=== PATIENT | female | born 1955 | race Caucasian/White ===

== ENCOUNTER 2020-06-07 18:55 | Emergency (ER) | payer OTHER ==
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
--- OUTSIDE RECORDS SUMMARY | 2020-06-07 18:57 | XMS REPORT | Continuity of Care Document ---
:1955 Author Organization Pro Breath MD Care Team Providers Name Role Phone Pro Breath MD Unavailable Un available Problems Problem Status Onset Classification Date Comments Sourc e Date Reported PAIN IN JOINT Active 02/10/20 Condition 02/09/2015 Misch er INVOLVING 15 Neuro SHOULDER REGION LOW BACK PAIN Active 10/09/19 Condition 02/09/2015 Misch er 15 Neuro LUMBAR Active 10/09/19 Condition 02/09/2015 [facility] RADICULOPATHY 15 Neuro BRACHIAL NEURITIS Active 10/09/19 Condition 02/09/2015 M ischer OR RADICULITIS 15 Neuro NOS CERVICAL NECK Active 10/09/19 Condition 02/09/2015 Misch er PAIN 15 Neuro Joint Pain In Active 08/05/2013 [facility] Both Knees Physician s Localized Active 08/05/2013 [facility] The Knee Medications Medication Details Route Status Patient Ordering Order Source Instructions Provider Date NORCO 10-325 MG 1 q 6 Active [facility] TABS hours 015 Neuro ROBAXIN-750 750 qid Active [facility] MG TABS 015 Neuro CRESTOR 20 MG od Active [facility] TABS 015 Neuro LEVOTHYROXINE OD Active [facility] SODIUM 15 MCG 015 Neuro TABS (LEVOTHYROXINE SODIUM) TOPAMAX 50 MG bid No [facility] TABS Longer 015 Neuro Active NORCO 7.5-325 MG qid, prn Active Mische r TABS pain 015 Neuro CRESTOR 20 MG od Active [facility] TABS 015 Neuro Lyrica CAPS (Active) Active [facility] Levothyroxine (Active) Active [facility] Sodium TABS [facility]icians Topiramate TABS (Active) Active [facility] Omeprazole CPDR (Active) Active [facility] Mobic TABS (Active) Active [facility] Allergies, Adverse Reactions, Alerts Substance Category Reaction Severity Reaction Status Date Comments S ource type Reported ALEVE Drug ALEVE Mische r allergy 5 Neuro CELEBREX Drug CELEBREX Misc her allergy 5 Neuro Aleve TABS drug drug Active [facility] allergy allergy Physicia ns Immunizations No Data Provided for This Section Results No Data Provided for This Section Pathology Reports No Data Provided for This Section Diagnostic Reports No Data Provided for This Section Consultation Notes No Data Provided for This Section Discharge Summaries No Data Provided for This Section History and Physicals No Data Provided for This Section Vital Signs Vital Sign Value Date Comments Source Weight 166 02/09/2015 [facility] Height 62 02/09/2015 [facility] Heart Rate 76 02/09/2015 [facility] Systolic (mm Hg) 143 02/09/2015 [facility] Tamera ro Diastolic (mm Hg) 90 02/09/2015 [facility] Ne uro Temperature Oral (F) 98 F 02/09/2015 [facility] Weight 166 01/21/2015 [facility] Height 62 01/21/2015 [facility] Heart Rate 72 01/21/2015 [facility] Systolic (mm Hg) 125 01/21/2015 [facility] Tam[place] ro Diastolic (mm Hg) 82 01/21/2015 [facility] Ne uro Weight 166 11/26/2014 [facility] Height 62 11/26/2014 [facility] Heart Rate 71 11/26/2014 [facility] Systolic (mm Hg) 116 11/26/2014 [facility] Tamera ro Diastolic (mm Hg) 79 11/26/2014 [facility] Ne uro Weight 162 10/08/2014 [facility] Height 62 10/08/2014 [facility] Heart Rate 70 10/08/2014 [facility] Systolic (mm Hg) 130 10/08/2014 [facility] Tamera ro Diastolic (mm Hg) 85 10/08/2014 [facility] Ne uro Encounters Location Location Encounter Encounter Reason Attending ADM CA Stat us Source Details Type Number For Provider Date Date Visit AUDIT [id number] 08/01 Physicia ns AUDIT [id number] 08/05 Physicia ns [facility] Office [id number] [facility] 10/08 10/08 M is[facility] Neuroscienc Visit [address] /2014 Tamera ro e TW [facility] Office [id number] [facility] 11/26 11/26 M [facility] Neuroscienc Visit [address] [place] /2014 Tamera ro e TW [facility] Office [id number] [facility] 01/21 01/21 M ischer Neuroscienc Visit [address] [place] /2014 Tamera ro e TW [facility] Office [id number] [facility] 02/09 02/09 M [facility]cher Neuroscienc Visit [address] Tamera ro e TW Outpatient [id number] [facility] 03/18 Activ [facility] [id number] [facility] 11/30 Activ e [facility] [place] Procedures No Data Provided for This Section Assessment and Plan No Data Provided for This Section Plan of Care No Data Provided for This Section Social History Social History Date Source Current Every Day Smoker 08/05/2013 [facility] (305.1); (Active) Family History No Data Provided for This Section Advance Directives Order Name Results Value Date Source Advance Directives Advance Directives No Advance 08/05/2013 [facility] Directives available. Advance Directives Advance Directives No Advance 08/01/2013 [facility] Directives available. Functional Status No Data Provided for This Section
--- OUTSIDE RECORDS SUMMARY | 2020-06-07 18:58 | XMS REPORT | Continuity of Care Document ---
:[address] [facility] t Address [address] [place] [address] Care Team Providers Name Role Phone Mica Primary Care Physician Problems Condition Condition Condition Status Onset Resolution Last Treating Co mments Source Name Details Category Date Date Treatment Clinician Date Hiatal Hiatal Disease Active 2017-06 [place] hernia hernia 06-10 Methodi with GERD with GERD 00:00: st without without 00 esophagiti esophagiti s s PAIN IN Condition Active 2015-02-09 Me moria JOINT 02-09 08:48:32 l INVOLVING PAIN IN 00:00: Herm ruthann SHOULDER JOINT 00 REGION INVOLVING SHOULDER REGION Active 02/09/2015 Condition 5 [facility] Neuro LOW BACK Condition Active 2015-02-09 M emoria PAIN 10-08 08:48:32 l LOW BACK 00:00: [place] n PAIN 00 Active 10/08/2014 Condition 5 [facility] Neuro LUMBAR Condition Active 2015-02-09 Mem oria RADICULOPA 10-08 08:48:32 l THY LUMBAR 00:00: [place] RADICULOPA 00 THY Active 10/08/2014 Condition 5 [facility] Neuro BRACHIAL Condition Active 2015-02-09 M emoria NEURITIS 10-08 08:48:32 l OR BRACHIAL 00:00: [place] n RADICULITI NEURITIS 00 S NOS OR RADICULITI S NOS Active 10/08/2014 Condition 5 [facility] Neuro CERVICAL Condition Active 2015-02-09 M emoria NECK PAIN 10-08 08:48:32 l CERVICAL 00:00: [place] n NECK PAIN 00 Active 10/08/2014 Condition 5 [facility] Neuro Joint Pain Problem Active 2013-08-05 M emoria In Both 18:20:05 l Knees Joint [place] Pain In Both Knees Active 08/05/2013 [facility] Localized Problem Active 2013-08-05 Me moria Osteoarthr 18:20:05 l itis Of [place] The Knee Localized Osteoarthr itis Of The Knee Active 4 [facility] Allergies, Adverse Reactions, Alerts Allergy Allergy Status Severity Reaction(s) Onset Inactive Treating Comm ents Source Name Type Date Date Clinician Varenicl Propensi Active Other (See 2017-06 Blisters [place] ine ty to Comments) 1-05 to hands Metho di adverse 00:00: and feet st reaction 00 s to drug Naproxen Propensi Active Itching 2017-0 "blisters [place] Sodium ty to 2-19 " Methodi adverse 00:00: st reaction 00 s to drug Celecoxi Propensi Active Itching 2018-0 "blisters [place] b ty to 2-19 " Methodi adverse 00:00: st reaction 00 s to drug CELEBREX CELEBREX Active Memori a 6-25 l 00:00: [place] 00 ALEVE ALEVE Active Memoria 5-07 l 00:00: [place] 00 Chantix Adverse Active itching,rash [facility] Celebrex Adverse Active itching,rash [facility] Aleve Adverse Active itching,rash [facility] Aleve Aleve Active Memoria TABS TABS l [place] Family History Family Member Diagnosis Comments Start Date Stop Date Source Natural brother Arthritis Artemio M ethodist Natural brother Heart disease [place] Islam Natural father No Known Problems Demetrio ston Islam Natural mother Arthritis Artemio Me thodist Natural mother Hypertension [place] Islam Paternal grandfather COPD [place] Social History Social Habit Start Date Stop Date Quantity Comments Source History of tobacco Cigarette Smoker [place] use Islam Sex Assigned At [place] Islam Cigarettes smoked 2018-05-15 2018-05-15 [place] current (pack per 00:00:00 00:00:00 Methodi ) - Reported Cigarette 2018-05-15 2018-05-15 [place] pack-years 00:00:00 00:00:00 Islam Tobacco use and 2018-05-15 2018-05-15 Never used [place] exposure 00:00:00 00:00:00 Islam Alcohol intake 2018-05-15 2018-05-15 Current [place] 00:00:00 00:00:00 non-drinker of Islam alcohol (finding) Tobacco Comment 2017-07-23 2017-07-23 Smoking for 50 [place] 00:00:00 00:00:00 years. Smoking Islam less than 1/2 pack a day. Social History 2013-08-05 2013-08-05 [facility] cecilio 18:20:05 18:20:05 Smoking Status Start Date Stop Date Source Current every day smoker 2018-05-15 00:00:00 Demetrio damian Islam Medications Ordered Filled Start Stop Current Ordering Indication Dosage Frequency Signature Comments Components Source Medication Medication Date Date Medication? Clinician (SIG) Name Name omeprazole 2017-06 Yes 40mg QD Take 40 mg H ourickie (PriLOSEC) 06-12 by mouth Metho di 40 MG 11:27: daily. st capsule 30 montelukast 2017-06 Yes 10mg QD Take 10 mg Artemio (SINGULAIR) 06-12 by mouth Meth zoë 10 mg 11:27: nightly. st tablet 30 milnacipran 2017-06 Yes 50mg Q.5D Take 50 mg Artemio (SAVELLA) 09 by mouth 2 Meth zoë 50 mg 11:27: (two) st tablet 30 times a day. rosuvastati 2017-06 Yes 20mg QD Take 20 mg [place] n (CRESTOR) 09 by mouth Meth zoë 20 MG 11:27: nightly. st tablet 30 levothyroxi 2017-06 Yes 75ug QD Take 75 Demetrio ston ne - mcg by Methodi (SYNTHROID, 11:27: mouth st LEVOXYL) 75 30 every mcg tablet morning. CERTOLIZUMA 2017-06 Yes Q30D Inject [place] PEGOL 06-12 under the Methodi (CIMZIA 11:27: skin every st SUBQ) 30 30 (thirty) days. Psoriatic arthritis dicyclomine 2017-06 Yes 10mg Q.5D Take 10 mg [place] (BENTYL) 10 1-09 by mouth 2 Me thodi MG capsule 11:27: (two) st 30 times a day. magnesium 2017-06 Yes 500mg QD Take 500 Demetrio ston gluconate 1-09 mg by Methodi (MAGONATE) 11:27: mouth st 500 mg 30 daily. tablet tablet acetaminoph 2017-06 Yes 1{tbl} Q6H Take 1 [place] en-codeine 1-09 tablet by Meth zoë (TYLENOL 11:27: mouth st WITH 30 every 6 CODEINE #3) (six) 300-30 mg hours as per tablet needed for moderate pain. pregabalin 2017-06 Yes 50mg Q.5D Take 50 mg [place] (LYRICA) 50 1-09 by mouth 2 Me thodi MG capsule 11:27: (two) st 30 times a day. NORCO Yes 1 q 6 Memoria 10-325 MG 9-02 hours l TABS 00:00: ROBAXIN-750 Yes qid Memori a 750 MG TABS 9-02 l 00:00: CRESTOR 20 Yes od Memoria MG TABS 4-17 l 00:00: LEVOTHYROXI Yes OD Memori a NE SODIUM 4-17 l 15 MCG TABS 00:00: [place] n (LEVOTHYROX 00 INE SODIUM) TOPAMAX 50 No bid Memoria MG TABS 4-17 l 00:00: NORCO Yes qid, prn Memoria 7.5-325 MG 4-17 pain l TABS 00:00: CRESTOR 20 Yes od Memoria MG TABS 4-17 l 00:00: Lyrica CAPS 2013-0 Yes (Active) M emoria 3-04 l 18:20: Levothyroxi 2013-0 Yes (Active) M emoria ne Sodium 3-04 l TABS 18:20: Topiramate 2013-0 Yes (Active) Me moria TABS 3-04 l 18:20: [place] 05 Omeprazole Yes (Active) Me moria CPDR 3-04 l 18:20: [place] 05 Mobic TABS Yes (Active) Me moria 3-04 l 18:20: [place] 05 Vitamin D3 Vitamin D3 Yes [place] TAKE [address] [facility] [place] CAPSULE BY [facility] ONE Memoria TIME PER l W[facility] Savella Savella Yes [place] [address] [facility] Cetirizine Cetirizine Yes [place] [address] HCl HCl [facility] Tramadol Tramadol Yes [place] [address] HCl HCl [place] as needed [facility] Amlodipine Amlodipine Yes [place] TAKE [address] [facility] Besylate Besylate [place] TABLET BY L ukes - MOUTH Memoria EVERY DAY [facility] Levothyroxi Levothyroxi Yes [place] [address] ne Sodium ne Sodium Tobin in the Lisa kes - morning on Memoria an empty l stomach [facility] Tizanidine Tizanidine Yes [place] [address] HCl HCl [place] as needed [facility] Montelukast Montelukast Yes [place] TAKE [address] [facility] Sodium Sodium [place] TABLET BY [facility] EVERY DAY l [facility] Cimzia Cimzia Yes [place] as [facility] directed [facility] Duloxetine Duloxetine Yes [place] [address] HCl HCl [place] [facility] Centrum Centrum Yes [place] not [facility] defined [facility] Omeprazole Omeprazole Yes [place] [address] [facility] [place] 30 minutes [facility] before Memoria morning l meal [facility] Meloxicam Meloxicam Yes [place] [address] [facility] [address] [facility] Crestor Crestor Yes [place] [address] [facility] Vital Signs Vital Name Observation Time Observation Value Comments Source [facility] 2015-02-09 13:48:32 [facility] Heart Rate 2015-02-09 13:48:32 [facility] Systolic (mm Hg) 2015-02-09 13:48:32 Anthony rial [place] Diastolic (mm Hg) 2015-02-09 13:48:32 Mem orial [place] Temperature Oral (F) 2015-02-09 13:48:32 98 F [facility] Weight 2015-01-21 14:04:42 [facility] Height 2015-01-21 14:04:42 [facility] Heart Rate 2015-01-21 14:04:42 [facility] [place] Systolic (mm Hg) 2015-01-21 14:04:42 Anthony rial [place] Diastolic (mm Hg) 2015-01-21 14:04:42 Mem orial [place] Weight 2014-11-26 14:57:22 [facility] [place] Height 2014-11-26 14:57:22 [facility] [place] Heart Rate 2014-11-26 14:57:22 [facility] [place] Systolic (mm Hg) 2014-11-26 14:57:22 Anthony rial [place] Diastolic (mm Hg) 2014-11-26 14:57:22 Mem orial [place] Weight 2014-10-08 14:56:51 [facility] [place] Height 2014-10-08 14:56:51 [facility] [place] Heart Rate 2014-10-08 14:56:51 [facility] [place] Systolic (mm Hg) 2014-10-08 14:56:51 Anthony rial [place] Diastolic (mm Hg) 2014-10-08 14:56:51 Mem orial [place] Procedures This patient has no known procedures. Plan of Care Planned Activity Planned Date Details Comments Source Future Scheduled 2020-01-03 INFLUENZA VACCINE [facility] Test 00:00:00 [code = INFLUENZA VACCINE] Future Scheduled 2019 65+ PNEUMOCOCCAL [place] Islam Test 00:00:00 VACCINE (1 of 1 - PPSV23) [code = 65+ PNEUMOCOCCAL VACCINE (1 of 1 - PPSV23)] Future Scheduled 2004 BREAST CANCER [facility] Test 00:00:00 SCREENING [code = BREAST CANCER SCREENING] Future Scheduled 2004 COLONOSCOPY SCREENING [facility] Islam Test 00:00:00 [code = COLONOSCOPY SCREENING] Future Scheduled 2004 SHINGLES VACCINES (#1) H halle Islam Test 00:00:00 [code = SHINGLES VACCINES (#1)] Future Scheduled 1970 COVID-19 VACCINE (#1) Ho melissa Islam Test 00:00:00 [code = COVID-19 VACCINE (#1)] Encounters Start End Encounter Admission Attending Care Care Encounter Source Date/Time Date/Time Type Type Clinicians Facility Department ID 2020-04-08 2020-04-08 [facility] [id number] [facility] 2020-04-01 2020-04-01 [facility] [id number] [facility] 2020-03-23 2020-03-23 [facility] [id number] 2020-01-07 2020-01-07 [facility] [id number] 11:[facility]:00 11:00:[place] [employer] [facility] 2020-01-07 2020-01-07 [facility] [id number] 11:00:00 11:00:00 [place] [employer] [facility] [address] [facility] 2019-12-21 2019-12-21 [facility] [id number] 20:23:00 20:23:00 [place] [employer] [facility] [address] [facility] 2019-11-17 2019-11-17 [facility] [id number] 07:33:00 07:33:00 [place] [employer] [facility] [address] [facility] 2019-11-12 2019-11-12 [facility] [id number] 13:00:00 13:00:00 [place] [employer] [facility] [address] [facility] 2019-11-02 2019-11-02 [facility] [id number] 09:58:00 09:58:00 [place] [employer] [facility] 2019-10-06 2019-10-06 [facility] [id number] 15:59:00 15:59:00 t [employer] [facility] 2019-09-03 2019-09-03 [facility] [id number] 11:00:00 11:00:00 t [employer] [facility] 2013-08-05 2013-08-05 [id number] 12:20:05 12:20:05 2013-08-01 2013-08-01 Outpatient [facility] [id number] 14:22:47 14:22:47 Results This patient has no known results.
[2020-06-07] MEDS ORDERED: ACETAMINOPHEN 500 MG TAB ONE (20:17)
[2020-06-07] MEDS ORDERED: NA CHLORIDE 0.9% 1,000 ML ONE (20:17)
[2020-06-07 20:26] LABS: Absolute Lymphocytes (CBC) 1.2 K/uL (0.7-4.9); Basophils % 0.2 % (0-1.3); Hematocrit 37.6 % (36.0-45.0); Lymphocytes % 9.4 % (15.3-44.8); MPV 8.8 fL (7.6-11.3); RBC Red Blood Cell Count 4.25 M/uL (3.86-4.86)
[2020-06-07 20:30] LABS: Protime INR 1.28
[2020-06-07 20:57] LABS: Bilirubin Direct 0.2 mg/dL (0-0.2); Bilirubin Total 0.7 mg/dL (0.2-1.0); Ferritin 233.5 ng/mL (8-388); Potassium 3.1 mmol/L (3.5-5.1); Protein, Total 7.2 g/dL (6.4-8.2)
--- NOTE | 2020-06-07 21:27 | RAD REPORT ---
EXAM DESCRIPTION: Sergo Single View06/07/2020 8:30 pm CLINICAL HISTORY: Cough COMPARISON: none FINDINGS: The lungs appear clear of acute infiltrate. The heart is normal size IMPRESSION: No acute abnormalities displayed
--- NOTE | 2020-06-07 21:27 | RAD REPORT ---
EXAM DESCRIPTION: CT - Abdomen Pelvis W Contrast - 06/07/2020 9:09 pm CLINICAL HISTORY: Abdominal pain COMPARISON: 2019 TECHNIQUE: Computed axial tomography of the abdomen pelvis was obtained. 100 cc Isovue-300 was admin istered intravenously. Oral contrast was not requested which limits evaluation of bowel. All CT scans are performed using dose optimization technique as appropriate and may include automated exposure control or mA/KV adjustment according to patient size. FINDINGS: Several tiny right renal calculi. Moderate right hydronephrosis. Right ureter is dilated. Within the distal right ureter are approximately 7 calculi. The largest measures 7 millimeters [place] unit 750. Mild fatty liver. Spleen, pancreas, adrenals and left kidney are unremarkable. Tiny umbilical hernia IMPRESSION: Multiple distal right ureteral calculi resulting in moderate right hydronephrosis
[2020-06-07 21:30] LABS: SARS-COV-2 RT PCR NEGATIVE (NEGATIVE)
[2020-06-07] MEDS ORDERED: CEFTRIAXONE/SWI 1gm 1 GM/10 ML SYR ONE (22:00)
[2020-06-07 22:37] LABS: Urine Amorphous Sediment 1+ /HPF (NONE SEEN); Urine Bacteria 20-50 /HPF (<20)
--- NOTE | 2020-06-07 23:29 | ER ---
Nurse's Notes [facility] Name: Sofia Houston Age: 65 yrs Sex: Female : 1955 Arrival Date: 06/07/2020 Time: 18:56 Bed 8 Private MD: Diagnosis: Calculus of kidney with calculus of ureter;Hydronephrosis with renal and ureteral calculous obstruction;Sepsis, unspecified organism Presentation: 06/07 19:00 Chief complaint: Patient states: right sided abd pain, has seen her PCP for her hernia. sv Pt appears confused in triage, can state her name and place but says that it is 1929. Brother who brought her in states that he last talked to her 2 days ago and she felt sick. Today he went to her house and saw that she didn't feel well, was confused and walking "funny.". Risk Assessment: Do you want to hurt yourself or someone else? Patient reports no desire to harm self or others. Onset of symptoms is unknown. 19:00 Method Of Arrival: Wheelchair sv 19:00 Acuity: MARCO ANTONIO 2 sv 19:10 Initial Sepsis Screen: Does the patient meet any 2 criteria? Temp <36.0*C (96.8*F)) or sv > 38.3*C (100.9*F). Altered Mental Status. HR > 90 bpm. Yes Does the patient have a suspected source of infection? Yes: Other: fever. 19:31 Note Brisa Houston can be contacted at [phone]. sg 20:00 Coronavirus screen: Client denies travel out of the [place] in the last 14 days. cough rv unrelated to allergies, difficulty breathing, nausea, loss of taste or smell. Ebola Screen: No symptoms or risks identified at this time. Historical: - Allergies: 19:11 Aleve; sv 19:11 Cymbalta; sv 19:52 Celebrex; sg 19:52 Chantix; sg - Home Meds: 19:52 tramadol 50 mg Oral tab 1 tab every 12 hours [Active]; tizanidine 2 mg oral cap sg [Active]; Vitamin D Oral [Active]; rosuvastatin 20 mg oral tab 1 tab once daily [Active]; duloxetine 60 mg oral cpDR 1 cap once daily [Active]; amlodipine 5 mg tab 1 tab once daily [Active]; Cimzia Powder for Reconst 400 mg (200 mg x 2 vials) subcutaneous kit [Active]; Crestor 10 mg oral tab 1 tab once daily [Active]; dicyclomine 10 mg Oral cap [Active]; levothyroxine 88 mcg tab 1 tab once daily [Active]; meloxicam 15 mg oral tab 1 tab once daily [Active]; montelukast 10 mg oral tab 1 tab once daily [Active]; omeprazole 40 mg Oral cpDR 1 cap 2 times per day [Active]; Savella 50 mg oral tab 1 tab 2 times per day [Active]; - Immunization history:: Adult Immunizations up to date. - Family history:: not pertinent. - Social history:: Smoking status: unknown. - Hospitalizations: : No recent hospitalization is reported. Screenin:31 Abuse screen: Denies threats or abuse. Denies injuries from another. Nutritional rv screening: No deficits noted. Tuberculosis screening: No symptoms or risk factors identified. Fall Risk None identified. Assessment: 20:00 General: Appears comfortable, Behavior is calm, cooperative. rv 20:00 Pain: Denies pain. Neuro: Level of Consciousness is awake, alert, obeys commands, rv Oriented to person, place, time, situation. Cardiovascular: Patient's skin is warm and dry. Respiratory: Airway is patent Respiratory effort is even, unlabored, Breath sounds are clear bilaterally. GI: Bowel sounds present X 4 quads. Abd is soft and non tender X 4 quads. Derm: Skin is intact. 20:55 Reassessment: Patient appears in no apparent distress at this time. Patient and/or jb4 family updated on plan of care and expected duration. Pain level reassessed. Patient is alert, oriented x 3, equal unlabored respirations, skin warm/dry/pink. 22:01 Reassessment: Patient appears in no apparent distress at this time. Patient and/or jb4 family updated on plan of care and expected duration. Pain level reassessed. Patient is alert, oriented x 3, equal unlabored respirations, skin warm/dry/pink. Patient states feeling better. 23:00 Reassessment: Patient appears in no apparent distress at this time. Patient and/or jb4 family updated on plan of care and expected duration. Pain level reassessed. Patient is alert, oriented x 3, equal unlabored respirations, skin warm/dry/pink. 06/08 00:00 Reassessment: Patient appears in no apparent distress at this time. Patient and/or jb4 family updated on plan of care and expected duration. Pain level reassessed. Patient is alert, oriented x 3, equal unlabored respirations, skin warm/dry/pink. 01:00 Reassessment: Patient appears in no apparent distress at this time. Patient and/or jb4 family updated on plan of care and expected duration. Pain level reassessed. Patient is alert, oriented x 3, equal unlabored respirations, skin warm/dry/pink. 02:04 Reassessment: Patient appears in no apparent distress at this time. Patient and/or jb4 family updated on plan of care and expected duration. Pain level reassessed. Patient is alert, oriented x 3, equal unlabored respirations, skin warm/dry/pink. Pt transferred to receiving via EMS. Pt's brother updated on transfer per pt and brothers request. Vital Signs: 06/07 19:10 BP 102 / 58; Pulse 93; Resp 20; Temp 101.9; Pulse Ox 99% ; sv 20:32 BP 99 / 51; Pulse 88; Resp 17; Pulse Ox 95% on R/A; rv 20:45 Temp 102.5(O); jb4 21:30 BP 93 / 54; Pulse 85; Resp 16; Temp 100.4(O); Pulse Ox 96% ; jb4 22:30 BP 125 / 103; Pulse 81; Resp 18; Pulse Ox 96% on R/A; rv 23:15 BP 95 / 59; Pulse 79; Resp 18; Pulse Ox 95% on R/A; rv 06/08 00:27 BP 100 / 52; Pulse 80; Resp 17; Temp 98.1; Pulse Ox 97% on R/A; rv 01:00 BP 95 / 55; Pulse 78; Resp 18; Pulse Ox 99% on R/A; jb4 01:30 BP 98 / 57; Pulse 79; Resp 16; Pulse Ox 98% on R/A; jb4 ED Course: 06/07 18:56 Patient arrived in ED. rg4 19:00 Arm band placed on. sv 19:05 Triage completed. sv 19:13 Damien Bettencourt MD is Attending Physician. rn 20:00 Patient has correct armband on for positive identification. Bed in low position. Call rv light in reach. Side rails up X 1. 20:00 pvc monitor on. Pulse ox on. NIBP on. rv 20:04 Inserted saline lock: 20 gauge in right antecubital area, using aseptic technique. rv Blood collected. 20:04 Initial lab(s) drawn, by me, sent to lab. First set of blood cultures drawn by me. rv 20:12 Sundar Alvarez, RN is Primary Nurse. jb4 20:15 Second set of blood cultures drawn by me. rv 20:31 CXR XRAY In Process Unspecified. EDMS 20:47 Sundar Alvarez, RN is Primary Nurse. jb4 21:10 CT Abd/Pelvis - IV Contrast Only In Process Unspecified. EDMS 23:55 Initiated transfer at [facility] with Katya Knutson. Stated she would get in touch tt3 with the physicians at the [facility] and call back. 06/08 00:50 Katya Klein called back with admin approval. The accepting physician is Dr. tommy Adames. The pt is going to [facility] bed 361. Face sheet faxed to per Katya's request. Nurse to call report to [phone]. 02:00 No provider procedures requiring assistance completed. Patient transferred, IV remains jb4 in place. Administered Medications: 06/07 20:12 Drug: NS 0.9% 1000 ml Route: IV; Rate: 1000 ml; Site: right antecubital; jb4 06/08 00:25 Follow up: IV Status: Completed infusion; IV Intake: 1000ml rv 06/07 20:12 Drug: Tylenol 1000 mg Route: PO; jb4 21:30 Follow up: Response: No adverse reaction; Temperature is decreased jb4 22:00 Drug: Rocephin 1 grams Route: IV; Rate: calculated rate; Site: left antecubital; jb4 23:17 Follow up: Response: No adverse reaction; IV Status: Completed infusion rv 23:10 CANCELLED (Duplicate Order): NS 0.9% 1000 ml IV at 1000 ml once rn 23:37 Drug: D5-1/2 NS with KCl 20 mEq/L 1000 ml Route: IV; Rate: 100 ml/hr; Site: right jb4 antecubital; 06/08 02:09 Follow up: Response: No adverse reaction; IV Status: Infusion continued upon transfer jb4 00:25 Drug: NS 0.9% 1000 ml Route: IV; Rate: 1000 ml; Site: right antecubital; rv 01:30 Follow up: Response: No adverse reaction; Blood pressure is elevated; IV Status: jb4 Completed infusion; IV Intake: 1000ml Intake: 00:25 IV: 1000ml; Total: 1000ml. rv 01:30 IV: 1000ml; Total: 2000ml. jb4 Outcome: 06/07 23:29 ER care complete, transfer ordered by . rn 06/08 02:00 Transferred by ground EMS EMS. to [facility], [facility], Transfer form jb4 completed. X-rays sent w/ patient. Condition: stable Discharge instructions given to patient, Instructed on the need for transfer, Demonstrated understanding of instructions. 02:09 Patient left the ED. jb4 Addendum: 06/10/2020 07:48 Addendum: Culture Results: Positive urine culture. Patient was not prescribed d m5 antibiotics at discharge. Report given to LUIS FERNANDO for further evaluation and then to sample builder for follow up with patient. Phone call Attempt #1 attempted to contact [facility]. All nurses busy and I was unable to get the fax number at this time. Will try again later. Signatures: Dispatcher [employer] EDMS Nuvia Kahn RN RN dm5 Verde, Stephanie, RN RN sv Gay, Steven RN Damien Orta MD MD rn Garcia, Rubi rg4 Bryson, James, RN RN jb4 Javi Garza RN RN rv Trim, Tyler tt3 Corrections: (The following items were deleted from the chart) 06/07 19:11 19:00 Acuity: MARCO ANTONIO 3 sv sv 19:44 19:00 Chief complaint: Patient states: right sided abd pain, has seen her PCP for her sv hernia. sv 06/08 02:09 02:00 Response: No adverse reaction; IV Status: Infusion continued upon transfer; IV jb4 Intake: 250ml jb4
--- NOTE | 2020-06-07 23:30 | EDPHYS ---
Physician Documentation [facility] Name: Sofia Houston Age: 65 yrs Sex: Female : 1955 Arrival Date: 06/07/2020 Time: 18:56 Bed 8 Private MD: ED Physician Damien Bettencourt HPI: 06/07 19:30 This 65 yrs old Female presents to ER via Wheelchair with complaints of rn fever, fatigue. 19:30 The patient reports fever, that was measured at 101.9 degrees Fahrenheit. Onset: The rn symptoms/episode began/occurred 3 day(s) ago. Modifying factors: there are no obvious modifying factors. Associated signs and symptoms: Pertinent positives: abdominal pain, cough. Severity of symptoms: At their worst the symptoms were mild in the emergency department the symptoms are unchanged. The patient has not experienced similar symptoms in the past. The patient has not recently seen a physician. REports fever, fatigue, malaise, began 3 days ago, assoc with loss of taste, generalized weakness. Reports intermittent abd cramps, but no vomiting or diarrhea. No blood in stool. Reports tested neg for COVID 2-3 weeks ago.. Historical: - Allergies: 19:11 Aleve; sv 19:11 Cymbalta; sv 19:52 Celebrex; sg 19:52 Chantix; sg - Home Meds: 19:52 tramadol 50 mg Oral tab 1 tab every 12 hours [Active]; tizanidine 2 mg oral cap sg [Active]; Vitamin D Oral [Active]; rosuvastatin 20 mg oral tab 1 tab once daily [Active]; duloxetine 60 mg oral cpDR 1 cap once daily [Active]; amlodipine 5 mg tab 1 tab once daily [Active]; Cimzia Powder for Reconst 400 mg (200 mg x 2 vials) subcutaneous kit [Active]; Crestor 10 mg oral tab 1 tab once daily [Active]; dicyclomine 10 mg Oral cap [Active]; levothyroxine 88 mcg tab 1 tab once daily [Active]; meloxicam 15 mg oral tab 1 tab once daily [Active]; montelukast 10 mg oral tab 1 tab once daily [Active]; omeprazole 40 mg Oral cpDR 1 cap 2 times per day [Active]; Savella 50 mg oral tab 1 tab 2 times per day [Active]; - Immunization history:: Adult Immunizations up to date. - Family history:: not pertinent. - Social history:: Smoking status: unknown. - Hospitalizations: : No recent hospitalization is reported. ROS: 19:30 Constitutional: + fever Eyes: Negative for injury, pain, redness, and discharge, ENT: + rn loss of taste Neck: Negative for injury, pain, and swelling, Cardiovascular: Negative for chest pain, palpitations, and edema, Respiratory: + cough Abdomen/GI: + intermittent abd cramps Back: Negative for injury and pain, : Negative for injury, bleeding, discharge, and swelling, MS/Extremity: Negative for injury and deformity, Skin: Negative for injury, rash, and discoloration, Neuro: Negative for headache, numbness, tingling, and seizure. Exam: 19:30 Constitutional: This is a well developed, well nourished patient who is awake, alert, rn and in no acute distress. Head/Face: Normocephalic, atraumatic. Eyes: Pupils equal round and reactive to light, extra-ocular motions intact. Lids and lashes normal. Conjunctiva and sclera are non-icteric and not injected. Cornea within normal limits. Periorbital areas with no swelling, redness, or edema. ENT: dry MM, no stridor Neck: Trachea midline, no masses palpated, and no cervical lymphadenopathy. Supple, full range of motion without nuchal rigidity, or vertebral point tenderness. No Meningismus. Cardiovascular: Tachycardic, regular Respiratory: No wheezing, mild tachypnea, no retractions Abdomen/GI: soft, non-tender Skin: Warm, dry, no rashes MS/ Extremity: Pulses equal, no cyanosis. Neurovascular intact. Full, normal range of motion. Equal circumference. Neuro: Awake and alert, GCS 15 Vital Signs: 19:10 BP 102 / 58; Pulse 93; Resp 20; Temp 101.9; Pulse Ox 99% ; sv 20:32 BP 99 / 51; Pulse 88; Resp 17; Pulse Ox 95% on R/A; rv 20:45 Temp 102.5(O); jb4 21:30 BP 93 / 54; Pulse 85; Resp 16; Temp 100.4(O); Pulse Ox 96% ; jb4 22:30 BP 125 / 103; Pulse 81; Resp 18; Pulse Ox 96% on R/A; rv 23:15 BP 95 / 59; Pulse 79; Resp 18; Pulse Ox 95% on R/A; rv 06/08 00:27 BP 100 / 52; Pulse 80; Resp 17; Temp 98.1; Pulse Ox 97% on R/A; rv 01:00 BP 95 / 55; Pulse 78; Resp 18; Pulse Ox 99% on R/A; jb4 01:30 BP 98 / 57; Pulse 79; Resp 16; Pulse Ox 98% on R/A; jb4 MDM: 06/07 19:13 Patient medically screened. rn 22:34 ED course: Pt with obstructive hydronephrosis 2/2 multiple ureteral stones, likely UTI rn behind it, COVID neg, and no other source of infection, will have to transfer given no urology here. . 23:04 ED course: Consulted with Dr. Saenz, urology, given already attempted transfer to multiple hospitals and all are at capacity, states patient needs urgent surgical evaluation and is not available until tomorrow, recommends transfer.. 23:28 Differential diagnosis: UTI, sepsis, UTI, obstructing kidney stones, COVID, Flu. Data rn reviewed: vital signs, nurses notes, lab test result(s), radiologic studies, CT scan, and as a result, I will admit patient. Counseling: I had a detailed discussion with the patient and/or guardian regarding: the historical points, exam findings, and any diagnostic results supporting the discharge/admit diagnosis, lab results, radiology results, the need to transfer to another facility, for higher level of care, [facility] does not immediately have the required specialist. Response to treatment: the patient's symptoms have mildly improved after treatment, and as a result, I will admit patient. Admission orders: after a detailed discussion of the patient's condition and case, the admit orders are written by me. 23:52 ED course: All hospitals called thus far have declined due to capacity. Will continue rn to try given urology not available for urgent evaluation. . 06/08 01:52 ED course: Accepted for transfer to [facility]. Being transferred now. .rn 06/07 19:27 Order name: Blood Culture Adult (2) rn 06/07 19:27 Order name: BMP rn 06/07 19:27 Order name: C-Reactive Protein rn 06/07 19:27 Order name: CBC with Diff rn 06/07 19:27 Order name: COVID-19 rn 06/07 19:27 Order name: Ferritin rn 06/07 19:27 Order name: Flu rn 06/07 19:27 Order name: LFT's; Complete Time: 21:14 rn 06/07 19:27 Order name: Lipase; Complete Time: 21:14 rn 06/07 19:27 Order name: Procalcitonin; Complete Time: 21:14 rn 06/07 19:27 Order name: PT-INR; Complete Time: 20:45 rn 06/07 19:27 Order name: Ptt, Activated; Complete Time: 20:45 rn 06/07 19:27 Order name: Urine Microscopic Only; Complete Time: 23:01 rn 06/07 19:29 Order name: Blood Culture EDCO 06/07 19:27 Order name: CXR XRAY; Complete Time: 21:45 rn 06/07 19:29 Order name: Basic Metabolic Panel; Complete Time: 21:14 EDMS 06/07 19:29 Order name: C-Reactive Protein; Complete Time: 21:14 EDMS 06/07 19:29 Order name: CBC with Automated Diff; Complete Time: 20:45 EDMS 06/07 19:29 Order name: Ferritin; Complete Time: 21:14 EDMS 06/07 19:29 Order name: CT Abd/Pelvis - IV Contrast Only; Complete Time: 21:45 rn 06/07 21:31 Order name: COVID-19/FLU A+B; Complete Time: 21:45 EDMS 06/07 22:26 Order name: Urine Dipstick--Ancillary (enter results) tt3 06/07 22:37 Order name: Urine Culture EDCO 06/07 19:27 Order name: Cardiac monitoring; Complete Time: 20:13 rn 06/07 19:27 Order name: Droplet/Contact Precautions; Complete Time: 20:13 rn 06/07 19:27 Order name: EKG - Nurse/Tech; Complete Time: 20:13 rn 06/07 19:27 Order name: IV Start; Complete Time: 20:13 rn 06/07 19:27 Order name: Labs collected and sent; Complete Time: 20:13 rn 06/07 19:27 Order name: O2 Per Protocol; Complete Time: 20:13 rn 06/07 19:27 Order name: O2 Sat Monitoring; Complete Time: 20:13 rn 06/07 19:27 Order name: Urine Dipstick-Ancillary (obtain specimen); Complete Time: 22:32 rn 06/07 22:32 Order name: Straight Cath; Complete Time: 22:32 [facility] 06/07 23:28 Order name: NPO; Complete Time: 23:28 rn Administered Medications: 06/07 20:12 Drug: NS 0.9% 1000 ml Route: IV; Rate: 1000 ml; Site: right antecubital; [facility] 06/08 00:25 Follow up: IV Status: Completed infusion; IV Intake: 1000ml rv 06/07 20:12 Drug: Tylenol 1000 mg Route: PO; [facility] 21:30 Follow up: Response: No adverse reaction; Temperature is decreased [facility] 22:00 Drug: Rocephin 1 grams Route: IV; Rate: calculated rate; Site: left antecubital; [facility] 23:17 Follow up: Response: No adverse reaction; IV Status: Completed infusion rv 23:10 CANCELLED (Duplicate Order): NS 0.9% 1000 ml IV at 1000 ml once rn 23:37 Drug: D5-1/2 NS with KCl 20 mEq/L 1000 ml Route: IV; Rate: 100 ml/hr; Site: right [facility] antecubital; 06/08 02:09 Follow up: Response: No adverse reaction; IV Status: Infusion continued upon transfer [facility] 00:25 Drug: NS 0.9% 1000 ml Route: IV; Rate: 1000 ml; Site: right antecubital; rv 01:30 Follow up: Response: No adverse reaction; Blood pressure is elevated; IV Status: [facility] Completed infusion; IV Intake: 1000ml Disposition: 06/07/20 23:29 Transfer ordered to [facility]. Diagnosis are Calculus of kidney with calculus of ureter, Hydronephrosis with renal and ureteral calculous obstruction, Sepsis, unspecified organism. - Reason for transfer: Higher level of care. - Accepting physician is DrMychal. - Condition is Fair. - Problem is new. - Symptoms have improved. Signatures: Dispatcher [employer] Radha Britt RN RN sv Gay, Steven, RN RN sg Nieto, Roman, MD MD rn Bryson, James, RN RN [facility] Greg, Javi, RN RN rv Corrections: (The following items were deleted from the chart) 06/07 20:25 19:29 CORONAVIRUS ordered. [facility] EDCO 20:25 19:29 Influenza Screen (A ordered. [facility] EDCO 23:10 23:04 ED course: Consulted with Dr. 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 . rn 23: 23:08 NS 0.9% 1000 ml IV at 1000 ml once ordered. rn rn 06/08 00:21 06/07 23:29 06/07/2020 23:29 Transfer ordered to Other Acute Care Facility. Diagnosis rn is Calculus of kidney with calculus of ureter; Hydronephrosis with renal and ureteral calculous obstruction; Sepsis, unspecified organism. Reason for transfer: Higher level of care. Accepting physician is . Condition is Fair. Problem is new. Symptoms have improved. rn 06/08 02:09 00:21 06/07/2020 23:29 Transfer ordered to [facility]. Diagnosis is jb4 Calculus of kidney with calculus of ureter; Hydronephrosis with renal and ureteral calculous obstruction; Sepsis, unspecified organism. Reason for transfer: Higher level of care. Accepting physician is . Condition is Fair. Problem is new. Symptoms have improved. rn
[2020-06-07] MEDS ORDERED: D5.45NS W/KCL 20MEQ 1,000 ML IV ONE (23:47)
[2020-06-08] MEDS ORDERED: NA CHLORIDE 0.9% 1,000 ML ONE (00:38)
[2020-06-08 04:50] VITALS: TEMP 98.1
[2020-06-08 04:51] VITALS: BP 95/55; O2SAT 99
[2020-06-08 06:51] LABS: Urine Blood 2+ (NEG); Urine Glucose NEGATIVE (NEG); Urine Protein 2+ (NEG); Urine pH 5.5 (5.0-7.0)
== END 2020-06-08 02:09 | disposition short-term general hospital (02) ==
LOC: ER 18:55
DX: N13.2 Hydronephrosis with renal and ureteral calculous obstruction (principal); A41.9 Sepsis, unspecified organism; Z20.828 Contact with and (suspected) exposure to other viral communicable diseases; Z88.6 Allergy status to analgesic agent; Z88.8 Allergy status to other drugs, medicaments and biological substances
CPT/HCPCS: 96365; 96361; 87040 ×2; 87088; 85025; 87086; 80048; 36415; 85610; 80076; 85730; 87077; 87186; 82728; 83690; 84145; 0240U; 86140; 74177; 71045; 99285; Q9967; J0696; J7030 ×2; 81003; 81015

== ENCOUNTER 2020-07-06 11:03 | Day surgery (SDC) | payer OTHER ==
--- NOTE | 2020-07-02 07:50 | EKG ---
Test Date: 2020-06-30 Test Time: 14:21:01 Payroll Accounting Manager: CONG MEASUREMENT RESULTS: Intervals: Rate: 80 DE: 126 QRSD: 96 QT: 394 QTc: 454 Atco: P: 75 DE: 126 QRS: 37 T: 93 INTERPRETIVE STATEMENTS: Normal sinus rhythm with sinus arrhythmia Possible Left atrial enlargement Borderline ECG No previous ECG available for comparison Electronically Signed On 07-02-20 07:49:20 SEMICONDUCTOR WAFERS MARKER by Chet Whitley
[~2020-07-06 11:03] MED LIST: CEFTRIAXONE/SWI 1gm 1 GM/10 ML SYR IV SCH
--- OUTSIDE RECORDS SUMMARY | 2020-07-06 11:06 | XMS REPORT | Clinical Summary ---
:1955 Author Organization [facility] Address [address] [place] [address] Care Team Providers Name Role Phone MD [...] L5-S1; Surgeon: Sol Devine MD; Loc ation: [facility]; Servic e: Neurosurgery; Laterality: Left ; Medical devices from this surgery are in t he Implants section . COLONOSCOPY polyp precancero us cells found DENTAL SURGERY SKIN BIOPSY REPAIR, HIATAL HERNIA, 04/10/2018 Abdomen/N/A Procedure : LAPAROSCOPIC LAPAROSCOPIC HIATAL HERNIA RE PAIR WITH TOUPET FUNDOPLIC ATION WITH MESH; Surg cruz: John Krishna; Location: [facility] O R; Service: General ; Laterality: N/A; [...] Due Date Last Done Comments COVID-19 VACCINE (1 of 2) 1970 BREAST CANCER SCREENING 2004 COLONOSCOPY SCREENING 2004 SHINGLES VACCINES (#1) 2004 65+ PNEUMOCOCCAL VACCINE (1 of 1 - PPSV23) 2019 INFLUENZA VACCINE 01/03/2020 Implants Implanted Type Area Truck Driver Instructor Device Shelf Model / Identifier Expiration Serial / Date Lot Phasix St Mesh Rectangle 7 Cm. X 10 Cm. (3" X 4") Synt hetic Mesh - [id number] GRAFTS N/A: N/A Moi SHER 12/30/2019 [id number] / Implanted: Qty: 1 on 04/10/2018 by Marian Gray MD at [facility] / [id number] Matrix [employer] Floseal 10ml W/ Humn F2 - [id number] Surgical N/A: N/A MARIE [id number] / Implanted: 07/26/2017 at [facility] (Quantity not on file) Im plants; [employer] / Expanders; Extenders; Surgical Wires Device Abs Fixation With 30 Tacks - [id number] Surgical N/A: N/A COVIDIEN 01/01/2021 [id number] / Implanted: Qty: 1 on 04/10/2018 by Marian Gray MD at [facility] Implants; SURGICAL / Expanders; [id number] Extenders; Surgical Wires 2.5mm X 13cm Signature Portfolio Precision Match Head, Lilac Darlin gical N/A: ANKUSH 09/03/2019 [id number] / Implanted: Qty: 1 on 07/26/2017 by Sol Devine MD at [facility] Knives, Back, INSTRUMENTS / Cutting & Other [id number] Piercing than Implements Spine Results Not on fileafter 07/06/2019 Insurance Payer Benefit Plan / Subscriber ID Effective Dates Phone Addre ss Type Group MEDICARE MEDICARE PART A [id number] 2011-Present [place], [place] Medicare AND B MEDICAID MEDICAID [id number] 2014-Present Med icaid Advance Directives For more information, please contact: [phone] Type Date Recorded Patient Resource Protection Specialist Explanati on Advance Directives, Living Will 07/23/2017 10:16 AM and Medical Power of Motor Coach Operator
--- OUTSIDE RECORDS SUMMARY | 2020-07-06 11:06 | XMS REPORT | Clinical Summary ---
:1955 Author Organization [facility] Address [address] [place] [address] Care Team Providers Name Role Phone Pcp, No MD Primary Care Provider Unavailable Lowell Tobin DO Primary Care Provider [phone] Allergies Active Allergy Reactions Severity Noted Date Comments Naproxen Sodium Itching 06/08/2020 Hands & feet Celecoxib Itching 06/08/2020 Hands & feet Varenicline Itching 06/08/2020 Palms/ feet Medications Medication Sig Dispensed Refills Start Date End Date Status traMADoL (ULTRAM) 50 Take 50 mg 0 Active mg tablet by mouth every 12 (twelve) hours. tiZANidine Take 2 mg by 0 Active (ZANAFLEX) 2 MG mouth 2 tablet (two) times daily. ergocalciferol Take 50,000 0 Act marcel (Vitamin D2) 1,250 Units by mcg (50,000 unit) mouth once a capsule week. rosuvastatin Take 20 mg 0 Active (CRESTOR) 20 MG by mouth tablet daily. DULoxetine Take 60 mg 0 Active (CYMBALTA) 60 MG by mouth capsule daily. dicyclomine (BENTYL) Take 10 mg 0 Active 10 MG capsule by mouth 2 (two) times daily. levothyroxine Take 88 mcg 0 Acti ve (SYNTHROID, by mouth LEVOTHROID) 88 MCG Every tablet morning on an empty stomach. meloxicam (MOBIC) 15 Take 15 mg 0 Active MG tablet by mouth daily. montelukast Take 10 mg 0 Active (SINGULAIR) 10 mg by mouth tablet nightly. omeprazole Take 40 mg 0 Active (PriLOSEC) 40 MG by mouth 2 capsule (two) times daily. milnacipran Take 50 mg 0 Active (Savella) 50 mg Tab by mouth 2 (two) times daily. amLODIPine (NORVASC) Take 5 mg by 0 Active 5 MG tablet mouth daily. oxybutynin Take 1 60 tablet 0 06/10/2020 Active (DITROPAN) 5 MG tablet (5 mg tablet total) by mouth 3 (three) times daily as needed (dysuria). acetaminophen Take 2 0 06/10/2020 Activ e (TYLENOL) 325 MG tablets (650 tablet mg total) by mouth every 6 (six) hours as needed for Pain. rosuvastatin Take 10 mg 0 06/10/19 Discon tinued (CRESTOR) 10 MG by mouth 21 (Sto p Taking at tablet daily. Discharge) cefdinir (OMNICEF) Take 1 10 capsule 0 06/10/2020 06/15/19 300 MG capsule capsule (300 21 mg total) by mouth 2 (two) times daily for 5 days For uti. phenazopyridine Take 1 10 tablet 0 06/10/2020 06/13/19 Exp ired (PYRIDIUM) 95 MG tablet (95 21 tablet mg total) by mouth 3 (three) times daily with meals for 3 days. Active Problems Problem Noted Date ACP (advance care planning) 06/10/2020 Kidney stone 06/08/2020 Right upper quadrant abdominal pain 06/08/2020 Hydronephrosis with renal and ureteral calculous obstr uction 06/08/2020 HTN (hypertension) HLD (hyperlipidemia) Chronic pain Thyroid disease Encounters Date Type Specialty Care Team Description 06/08/2020 Anesthesia Event Jeffery Genao MD 06/08/2020 Surgery Joe Carnes CYSTOSCOPY,R TIA Alex MD 06/08/2020 - Hospital Encounter General Internal Alip [place] nephrosis with renal and ureteral calculous obstruction; 06/10/2020 Medicine Lare, Sepsis with enc ephalopathy without septic shock, due to unspecified organism ([facility]); MD Carlitos Essential hypertension; Simeon Villatoro Immunosuppre ssed status ([facility]); MD Manolo ACP (advance ca re planning) 06/08/2020 Orders Only General Internal Medicine 06/08/2020 Travel after 07/06/2019 Social History Tobacco Use Types Packs/Day Years Used Date Current Every Day Smoker 0.5 Smokeless Tobacco: Former User Tobacco Cessation: Ready to Quit: No Comments: 55 YRS. Sex Assigned at Date Recorded Not on file COVID-19 Exposure Response Date Recorded In the last month, have you been in contact with No / Unsure 06/08/2020 8:13 AM MACHINIST someone who was confirmed or suspected to have Coronavirus / COVID-19? Last Filed Vital Signs Vital Sign Reading Time Taken Comments Blood Pressure 121/73 06/10/2020 7:31 AM MACHINIST Pulse 87 06/10/2020 8:21 AM MACHINIST Temperature 36.7 C (98.1 F) 06/10/2020 7:31 AM MACHINIST Respiratory Rate 18 06/10/2020 8:21 AM MACHINIST Oxygen Saturation 97% 06/10/2020 8:21 AM MACHINIST Inhaled Oxygen Concentration - - Weight 65.8 kg (145 lb) 06/08/2020 4:24 PM MACHINIST Height 157.5 cm (5' 2") 06/08/2020 4:24 PM MACHINIST Body Mass Index 26.52 06/08/2020 4:24 PM MACHINIST Plan of Treatment Health Maintenance Due Date Last Done Comments BREAST CANCER SCREENING 1955 COLON CANCER SCREENING COLONOSCOPY 1955 MEDICARE ANNUAL WELLNESS (YEAR 2 or FIRST YEAR if no 07/06/2012 IPPE) PNEUMOCOCCAL 65+ YRS (1 of 1 - [id number]) 2019 DEPRESSION SCREENING (12+) 06/04/2020 INFLUENZA VACCINE Completed 04/01/2020 Implants Implanted Type Area Branch Controller Device Shelf Model / Identifier Expiration Serial / Date Lot Stent Uret Ult Manish [id number] - [id number] IMPLANTS Right: B OSTON 12/11/2022 [id number] / Implanted: Qty: 1 on 06/08/2020 by Joe Farrar do, MD at [facility] [employer] SCI:UROLOGY/GYNE / COLOGY [id number] Procedures Procedure Name Priority Date/Time Associated Comments Diagnosis CBC W/PLT COUNT & Routine 06/10/2020 4:49 Result s for this AUTO DIFFERENTIAL AM MACHINIST procedure are in the results section. BASIC METABOLIC PANEL Routine 06/10/2020 4:49 Re sults for this (7) AM MACHINIST procedure are i n the results section. CBC W/PLT COUNT & Routine 06/10/2020 4:49 Result s for this AUTO DIFFERENTIAL AM MACHINIST procedure are in the results section. CBC W/PLT COUNT & Routine 06/09/2020 6:11 Result s for this AUTO DIFFERENTIAL AM MACHINIST procedure are in the results section. BASIC METABOLIC PANEL Routine 06/09/2020 6:11 Re sults for this (7) AM MACHINIST procedure are i n the results section. CBC W/PLT COUNT & Routine 06/09/2020 6:11 Result s for this AUTO DIFFERENTIAL AM MACHINIST procedure are in the results section. URINALYSIS W/ REFLEX Routine 06/09/2020 3:39 Res ults for this URINE CULTURE AM MACHINIST procedure are in the results section. URINE CULTURE Routine 06/09/2020 3:39 Results fo r this AM MACHINIST procedure are i n the results section. FL FLUORO Routine 06/08/2020 6:20 Results for this NON-SPECIFIC UP TO 1 PM MACHINIST procedu re are in HOUR the results section. URINE CULTURE Routine 06/08/2020 6:10 Results fo r this PM MACHINIST procedure are i n the results section. CYSTOSCOPY,URETEROSCO 06/08/2020 5:39 Right ureteral PY PM MACHINIST calculus Case Notes CYSTO, RIGHT RETROGRADE, RIG HT STENT, POSS URS W/LASER LITHO CYSTOSCOPY,INSERTION URETERAL 06/08/2020 5:39 PM MACHINIST Right ureteral STENTS calculus Case Notes CYSTO, RIGHT RETROGRADE, RIG HT STENT, POSS URS W/LASER LITHO CYSTOSCOPY,RETROGRADES 06/08/2020 5:39 PM MACHINIST Right u reteral calculus Case Notes CYSTO, RIGHT RETROGRADE, RIG HT STENT, POSS URS W/LASER LITHO ECG 12-LEAD Routine 06/08/2020 5:07 PM MACHINIST Procedure Note - Interface, External Ris In - 06/08/2020 5:09 PM MACHINIST Ventricular Rate 87 BPM Atrial Rate 87 BPM P-R Interval 152 ms QRS Duration 86 ms Q-T Interval 368 ms QTC Calculation(Bazett) 442 ms P [place] 36 degrees R [place] 43 degrees T [place] 34 degrees Normal sinus rhythm Normal ECG No previous ECGs available ECG 12-LEAD Routine 06/08/2020 5:07 PM MACHINIST Resu lts for this procedure are i n the results section . LACTIC ACID, VENOUS Routine 06/08/2020 11:18 AM MACHINIST Results for this procedure are i n the results section . BLOOD CULTURE Routine 06/08/2020 11:18 AM MACHINIST Res ults for this procedure are i n the results section . BLOOD CULTURE Routine 06/08/2020 11:17 AM MACHINIST Res ults for this procedure are i n the results section . CBC W/PLT COUNT & AUTO Routine 06/08/2020 5:14 AM MACHINIST Results for this DIFFERENTIAL procedure are i n the results section . MAGNESIUM Add-On 06/08/2020 5:14 AM MACHINIST Resu lts for this procedure are i n the results section . BASIC METABOLIC PANEL (7) Routine 06/08/2020 5:14 AM MACHINIST Results for this procedure are i n the results section . CBC W/PLT COUNT & AUTO Routine 06/08/2020 5:14 AM MACHINIST Results for this DIFFERENTIAL procedure are i n the results section . TSH/FREE T4 IF INDICATED Routine 06/08/2020 5:14 AM MACHINIST Results for this procedure are i n the results section . REPORT OF PROCEDURE - 06/08/2020 Result s for this ENDOSCOPY SCAN procedure are in the results section . after 07/06/2019 Results CBC with platelet count + automated diff (06/10/2020 4:49 AM MACHINIST)Only the most recent of3 resultswithin the time period is included. Pathologist Sig nature WBC 7.4 4.0 - 10.0 [facility] K/L RBC 3.64 (L) 4.00 - 5.00 [facility] M/L Hemoglobin 11.1 (L) 12.0 - 15.5 [facility] GM/DL Hematocrit 31.9 (L) 36.0 - 46.0 % [facility] MCV 87.6 82.0 - 99.0 fL [facility] MCH 30.5 27.0 - 33.0 pg [facility] MCHC 34.8 32.0 - 36.0 [facility] GM/DL RDW 13.0 12.0 - 15.0 % [facility] Platelets 141 (L) 150 - 430 K/CU [facility] MM MPV 11.1 6.0 - 11.5 fL [facility] nRBC 0 0 - 0 /100 WBC [facility] % Neutros 73 % [facility] % Lymphs 17 % [facility] % Monos 10 % [facility] % Eos 0 % [facility] % Baso 0 % [facility] # Neutros 5.36 1.80 - 8.00 [facility] K/L # Lymphs 1.21 (L) 1.48 - 4.50 [facility] K/L # Monos 0.72 0.00 - 1.30 [facility] K/L # Eos 0.00 0.00 - 0.50 [facility] K/L # Baso 0.02 0.00 - 0.20 [facility] K/L Immature 1 (H) 0 - 0 % [facility] Granulocytes-Relativ e Specimen Blood Performing Organization Address [facility] Phone Number [facility] [address] [place] [address] Basic Metabolic Panel (06/10/2020 4:49 AM MACHINIST)Only the most recent of3 results within the time period is included. Sodium 138 135 - 148 meq/L [facility] Potassium 3.6 3.5 - 5.5 meq/L [facility] Chloride 107 (H) 98 - 106 meq/L [facility] CO2 22 20 - 31 meq/L [facility] BUN 10 10 - 26 mg/dL [facility] Creatinine 0.70 0.50 - 1.20 [facility] mg/dL LABORATORY Glucose 89 70 - 110 mg/dL [facility] Calcium 7.8 (L) 8.5 - 10.5 [facility] mg/dL LABORATORY EGFR 84Comment: ESTIMATED mL/min/1.73 sq [facility] GFR IS NOT m LABORATORY ACCURATE CREATININE CLEARANCE IN PREDICTING GLOMERULAR FILTRATION RATE. ESTIMATED GFR IS NOT APPLICABLE FOR DIALYSIS PATIENTS. Specimen Blood Narrative Performed At Nursing Services Manager ID - [id number] [facility] Performing Organization Address [facility] Phone Number [facility] [address] [place] [address] Urinalysis w/Microscopic + Reflex to Culture (06/09/2020 3:39 AM MACHINIST) Color, UA Yellow [facility] Clarity, UA Hazy [facility] Specific [place], 1.010 1.001 - 1.035 [facility] UA LABORATORY pH, UA 6.0 5.0 - 8.0 [facility] Protein, UA 100 mg/dL (A) Negative [facility] Glucose, UA Negative Negative [facility] Ketones, UA Negative Negative [facility] Bilirubin, UA Negative Negative [facility] Blood, UA Large (A) Negative [facility] Nitrite, UA Negative Negative [facility] Leukocytes, UA Large (A) Negative [facility] Urobilinogen, UA <1.0 0.2 - 1.0 mg/dL [facility] RBC, UA 73 /HPF [facility] WBC, UA 33 /HPF [facility] Bacteria, UA Moderate [facility] Mucus Rare [facility] Squam Epithel, UA 1 /HPF [facility] Specimen Source [facility] Specimen Urine - Urine (substance) Narrative Performed At Nursing Services Manager ID - [auto] [facility] Nursing Services Manager ID - [id number] Performing Organization Address [facility] Phone Number [facility] [address] [place], [place] [address] Urine culture (06/09/2020 3:39 AM MACHINIST)Only the most recent of2 resultswithin the time period is included. Pathologist Sig nature Result No growth [facility] Specimen Urine - Urine (substance) Performing Organization Address [facility] Phone Number [facility] [address] [place], [place] [address] [place] fluoro non-specific up to 1 hour (06/08/2020 6:20 PM MACHINIST) Specimen Narrative Performed At Fluoroscopic unit utilized for a procedure performed i n the OR. No GE RIS interpretation was requested. Refer to the operative report for findings. Refer to PACS for patient radiation dose i nformation. Procedure Note Interface, External Ris In - 06/08/2020 6:40 PM MACHINIST Fluoroscopic unit utilized for a procedu re performed in the OR. No interpretation was requested. Refer to the operative r eport for findings. Refer to PACS for patient radiation dose information. Performing Organization Address [facility] Phone Number GE RIS ECG 12 lead (06/08/2020 5:07 PM MACHINIST) Specimen Narrative Performed At This result has an attachment that is no t available. Ventricular Rate 87 BPM GE MUSE Atrial Rate 87 BPM P-R Interval 152 ms QRS Duration 86 ms Q-T Interval 368 ms QTC Calculation(Bazett) 442 ms P [place] 36 degrees R [place] 43 degrees T [place] 34 degrees Normal sinus rhythm Normal ECG No previous ECGs available Procedure Note Interface, External Ris In - 06/14/2020 7:26 PM MACHINIST Ventricular Rate 87 BPM Atrial Rate 87 BPM P-R Interval 152 ms QRS Duration 86 ms Q-T Interval 368 ms QTC Calculation(Bazett) 442 ms P [place] 36 degrees R [place] 43 degrees T [place] 34 degrees Normal sinus rhythm Normal ECG No previous ECGs available Performing Organization Address [facility] Phone Number GE MUSE Lactic acid, venous (06/08/2020 11:18 AM MACHINIST) Pathologist Sig nature Lactate, Venous 0.71 0.50 - 2.20 mmol/L [facility] Y Specimen Blood Narrative Performed At Nursing Services Manager ID - [id number] [facility] Performing Organization Address [facility] Number [facility] [address] [place], [place] [address] Blood Culture - Routine (Right Venipuncture) (06/08/2020 11:18 AM MACHINIST)Only the most recent of2 resultswithin the time period is included. Pathologist Sig nature Result No growth in 5 days [facility] Specimen Blood - Entire right upper arm (body str ucture) Performing Organization Address [facility] Number [facility] [address] [place], [place] [address] TSH/Free T4 If Indicated (06/08/2020 5:14 AM MACHINIST) Pathologist Sig nature TSH 0.690 0.350 - 5.500 uIU/mL [facility] Specimen Blood Narrative Performed At Nursing Services Manager ID - [id number] [facility] Performing Organization Address [facility] Phone Number [facility] [address] [place] [address] Magnesium (06/08/2020 5:14 AM MACHINIST) Pathologist Sig nature Magnesium 1.6 1.5 - 3.0 mg/dL [facility] Specimen Blood Narrative Performed At Nursing Services Manager ID - [id number] [facility] Performing Organization Address [facility] Phone Number [facility] [address] [place], [place] [address] EKG-SCANNED (06/08/2020) Narrative Performed At This result has an attachment that is no t available. Ordered by an unspecified provider. after 07/06/2019 Advance Directives For more information, please contact: [phone] Code Status Date Activated Date Inactivated Comments Full Code 06/08/2020 3:49 AM 06/10/2020 2:10 PM This code status was determined by: Patient
--- OUTSIDE RECORDS SUMMARY | 2020-07-06 11:06 | XMS REPORT | Continuity of Care Document ---
:1955 Author Organization [facility] Care Team Providers Name Role Phone [facility] Unavailable Un available Problems Problem Status Onset [...] Location Location Encounter Encounter Reason Attending ADM MT Stat us Source Details Type Number For Provider Date Date Visit AUDIT [id number] 08/01 Physicia ns AUDIT [id number] 08/05 Physicia ns [facility] [id number] [facility] 10/08 10/08 [facility] [address] [place] /2014 [facility] [id number] [facility] 11/26 11/26 [facility] Visit [address] [place] /2014 Tam[facility] e [facility] [id number] [facility] 01/21 01/21 [facility] Visit [address] [place] /2014 Tamera ro e [facility] [id number] [facility] 02/09 02/09 [facility] Visit [address] [facility] [id number] [facility] 03/18 [facility] [id number] [facility] 11/[address] [facility] Procedures No Data Provided for This Section Assessment and Plan No Data Provided for This Section Plan of Care No Data Provided for This Section Social History Social History Date Source Current Every Day Smoker 08/05/2013 [facility] (305.1); (Active) Family History No Data Provided for This Section Advance Directives Order Name Results Value Date Source Advance Directives Advance Directives No Advance 08/05/2013 [facility] Directives available. Advance Directives Advance Directives No Advance 08/01/2013 [facility] Directives available. Functional Status No Data Provided for This Section
--- OUTSIDE RECORDS SUMMARY | 2020-07-06 11:08 | XMS REPORT | Continuity of Care Document ---
:1955 Author Organization [facility] t Address [address] [place] [address] Care Team Providers Name Role Phone Mica KENT Primary Care Physician ROSANGELA MEDELLIN Attending Clinician Unavailable Rosangela Medellin MD Attending Clinician Charu Mixon MD Attending Clinician Isai Carnes MD Attending Clinician Birgit KENT Attending Clinician CHARU MIXON Admitting Clinician Unavailable Payers Payer Name Policy Type Policy Effective Date Expiration Date Sour ce Number MEDICAREMEDICARE A [id number] 2011 LROENE Abbasi [id number] 2011-P 00:00:00 - Medical resentMedicare Center MEDICAIDMEDICAID OF [id number] 2020 LORENE Abbasi [id number] 2021 00:00:00 - Medical -[facility] [facility] Problems Condition Condition Condition Status Onset Resolution Last Treating Co mments Source Name Details Category Date Date Treatment Clinician Date ACP ACP Disease Active [facility]-10 [facility] care 00:00: Medical planning) planning) 00 Cent er Kidney Kidney Disease Active [facility] 1-05 [facility] 00:[facility] Medical [facility] Center Right Right Disease Active [facility] upper upper 1-05 [facility] - quadrant quadrant 00:00: Medica l abdominal abdominal 00 Cent er pain pain Hydronephr Hydronephr Disease Active [facility] osis with osis with 1-05 [facility] - renal and renal and 00:00: Medi nathanael ureteral ureteral 00 Center calculous calculous obstructio obstructio n n Hiatal Hiatal Disease Active 2017-06 [employer] hernia hernia 1-07 [facility] with GERD with GERD 00:00: st [...] emoria In Both 18:20:05 l Knees Joint [place] Pain In Both Knees Active 08/05/2013 [facility] Localized Problem Active 2013-08-05 Me moria Osteoarthr 18:20:05 l itis Of [place] The Knee Localized Osteoarthr itis Of The Knee Active 4 [facility] HTN HTN Disease Active [facility] (hypertens (hypertens Lisa kes - ion) ion) [facility] HLD HLD Disease Active [facility] (hyperlipi (hyperlipi Lisa kes - demia) demia) [facility] Chronic Chronic Disease Active [facility] pain pain [facility] Thyroid Thyroid Disease Active [facility] disease disease [facility] Allergies, Adverse Reactions, Alerts Allergy Allergy Status Severity Reaction(s) Onset Inactive Treating Comm ents Source Name Type Date Date Clinician Naproxen Propensi Active Itching Hands & [facility] Sodium ty to 1-05 feet [facility] - adverse 00:00: Medical reaction 00 Center s Celecoxi Propensi Active Itching Hands & [facility] b ty to 1-05 feet [facility] - adverse 00:00: Medical reaction 00 Center s Varenicl Propensi Active Itching Palms/ [facility] t ine ty to 1-05 feet [facility] - adverse 00:00: Medical reaction 00 Center s Varenicl Propensi Active Other (See 2017-06 Blisters [place] ine ty to Comments) 05 to hands Metho di adverse 00:00: and [...] CELEBREX Active Memori a 6-25 l 00:00: [place] ALEVE ALEVE Active Memoria 5-07 l 00:00: [place] 00 Chantix Adverse Active itching,rash [facility] Celebrex Adverse Active itching,rash [facility] Aleve Adverse Active itching,rash [facility] Aleve Aleve Active Memoria TABS TABS l [place] Family History Family Member Diagnosis Comments Start Date Stop Date Source Natural brother Arthritis Artemio M ethodist Natural brother Heart disease [place] [facility] Natural father No Known Problems Demetrio damian [facility] Natural mother Arthritis [employer] Me thodist Natural mother Hypertension [employer] [facility] Paternal grandfather COPD [place] [facility] Social History Social Habit Start Date Stop Date Quantity Comments Source History of tobacco Cigarette Smoker [employer] use [facility] Sex Assigned At [facility] johnnie [facility] Exposure to Not sure [facility] - SARS-CoV-2 (event) [facility] Cigarettes smoked 2020-06-08 2020-06-08 [facility] - current (pack per 00:00:00 00:00:00 [facility] day) - Reported Tobacco use and 2020-06-08 2020-06-08 Former user [facility] ukes - exposure 00:00:00 00:00:00 [facility] Tobacco Comment 2020-06-08 2020-06-08 55 YRS. [facility] - 00:00:00 00:00:00 [facility] Cigarette 2018-05-15 2018-05-15 [employer] pack-years 00:00:00 00:00:00 [facility] Alcohol intake 2018-05-15 2018-05-15 Current [employer] 00:00:00 00:00:00 non-drinker of Congregation alcohol (finding) Social History 2013-08-05 2013-08-05 [facility] 18:20:05 18:20:05 Smoking Status Start Date Stop Date Source Current every day smoker 2020-06-08 00:00:00 [facility] Medications Ordered Filled Start Stop Current Ordering Indication Dosage Frequency Signature Comments Components Source Medication Medication Date Date Medication? Clinician (SIG) Name Name traMADoL Yes 50mg Take [address] [facility] (ULTRAM) 50 1-07 by mouth Luke [facility] - mg tablet 12:10: every 12 Medi nathanael 29 (twelve) Center hours. tiZANidine Yes 2mg Q.5D Take [address] (ZANAFLEX) 1-07 by mouth 2 [place] [facility] - 2 MG tablet 12:10: (two) Medic al 29 times Center daily. ergocalcife Yes [id number] Q7D Take [facility] rol 1-07 50,000 [facility] - (Vitamin 12:10: Units by Medic al D2) 1,250 29 mouth once Cent er mcg (50,000 a week. unit) capsule rosuvastati Yes 20mg QD Take [address] n (CRESTOR) 1-07 by mouth Luke s - 20 MG 12:10: daily. Medical tablet 29 Center DULoxetine Yes 60mg QD Take [address] (CYMBALTA) 1-07 by mouth [facility] - 60 MG 12:10: daily. Medical capsule 29 Center dicyclomine Yes 10mg Q.5D Take [address] (BENTYL) 10 -07 by mouth 2 Lisa kes - MG capsule 12:10: (two) Medica l 29 times Center daily. levothyroxi Yes 88ug Take [address] ne 1-07 mcg by [facility] - (SYNTHROID, 12:10: mouth Medic al LEVOTHROID) 29 Every Center 88 MCG morning on tablet an empty stomach. meloxicam Yes 15mg QD Take [address] (MOBIC) 15 -07 by mouth [facility] - MG tablet 12:10: daily. Medica l 29 Center montelukast Yes 10mg QD Take [address] (SINGULAIR) -07 by mouth Luke s - 10 mg 12:10: nightly. Medical tablet 29 Center omeprazole Yes 40mg Q.5D Take [address] (PriLOSEC) 1-07 by mouth 2 [place] - 40 MG 12:10: (two) Medical capsule 29 times Center daily. milnacipran Yes 50mg Q.5D Take [address] (Savella) 1-07 by mouth 2 Luke [facility] - 50 mg Tab 12:10: (two) Medical 29 times Center daily. amLODIPine Yes 5mg QD Take [address] (NORVASC) 5 -07 by mouth Luke s - MG tablet 12:10: daily. Medica l 29 Center rosuvastati 2020- No 10mg QD Take [address] n (CRESTOR) 1-07 -07 by mouth [place] es - 10 MG 11:47: 00:00 daily. Medical tablet 33 :00 Center oxybutynin Yes 5mg Take 1 [facility] t (DITROPAN) 1-07 tablet (5 [facility] - 5 MG tablet 00:00: mg total) M edical 00 by mouth 3 Center (three) times daily as needed (dysuria). acetaminoph Yes 650mg Take [address] [facility] en 07 tablets [facility] - (TYLENOL) 00:00: (650 mg Medic al 325 MG 00 total) by Center tablet mouth every 6 (six) hours as needed for Pain. cefdinir No 300mg Q.5D Take 1 [facility] (OMNICEF) 06-10 capsule [facility] - 300 MG 00:00: 23:59 (300 mg Medical capsule 00 :00 total) by Center mouth 2 (two) times daily for 5 days For uti. phenazopyri No 95mg Take [address] dine 06-10 tablet (95 [facility] - (PYRIDIUM) 00:00: 23:59 mg total) M edical 95 MG 00 :00 by mouth 3 Center tablet (three) times daily with meals for 3 days. omeprazole 2017-06 Yes 40mg QD Take 40 mg [place] (PriLOSEC) 06-12 by mouth Metho di 40 MG 11:27: daily. st capsule 30 montelukast 2017-06 Yes 10mg QD Take 10 mg [place] (SINGULAIR) 06-12 by mouth Meth zoë 10 mg 11:27: nightly. st tablet 30 milnacipran 2017-06 Yes 50mg Q.5D Take 50 mg [facility] (SAVELLA) 09 by mouth 2 Meth zoë 50 mg 11:27: (two) st tablet 30 times a day. rosuvastati 2017-06 Yes 20mg QD Take 20 mg [facility] n (CRESTOR) 06-12 by mouth Meth zoë 20 MG 11:27: nightly. st tablet 30 levothyroxi 2017-06 Yes 75ug QD Take 75 Demetrio ston ne 1-09 mcg by Methodi (SYNTHROID, 11:27: mouth st LEVOXYL) 75 30 every mcg tablet morning. CERTOLIZUMA 2017-06 Yes Q30D Inject [place] PEGOL 06-12 under the Method[facility] (CIMZIA 11:27: skin every st SUBQ) 30 30 (thirty) days. Psoriatic arthritis dicyclomine 2018-1 Yes 10mg Q.5D Take 10 mg [place] [...] 4-17 l 15 MCG TABS 00:00: Pacheco kaba (LEVOTHYROX 00 INE SODIUM) TOPAMAX 50 No bid Memoria MG TABS 4-17 l 00:00: NORCO Yes qid, prn Memoria 7.5-325 MG 4-17 pain l TABS 00:00: CRESTOR 20 Yes od Memoria MG TABS 4-17 l 00:00: Lyrica CAPS 2013- Yes (Active) M emoria 3-04 l 18:20: Levothyroxi Yes (Active) M emoria ne Sodium 3-04 l TABS 18:20: Topiramate 0 Yes (Active) Me moria TABS 3-04 l 18:20: Omeprazole 2013-0 Yes (Active) Me moria CPDR 3-04 l 18:20: [place] 05 Mobic TABS Yes (Active) Me xua 3-04 l 18:20: [place] 05 Vitamin D3 Vitamin D3 Yes [place] TAKE [address] [facility] [place] CAPSULE BY [facility]ukes - MOUTH ONE Memoria TIME PER l WEEK [facility] Savella Savella Yes [place] [address] [facility] Cetirizine Cetirizine Yes [place] [address] [facility] HCl HCl [facility] [facility] Tramadol Tramadol Yes [place] [address] HCl HCl [place] as needed [facility] Amlodipine Amlodipine Yes [place] TAKE [address] [facility] [facility] Besylate Besylate [place] TABLET BY L ukes - MOUTH Memoria EVERY DAY l [facility] Levothyroxi Levothyroxi Yes [place] [address] [facility] ne Sodium ne Sodium [place] in the Lisa kes - morning on Memoria an empty l stomach [facility] Tizanidine Tizanidine Yes [place] [address] HCl HCl [place] as needed [facility] Montelukast Montelukast Yes [place] TAKE [address] [facility] Sodium Sodium [place] TABLET BY [facility] - MOUTH Memoria EVERY DAY l [facility] Cimzia Cimzia Yes [place] as [facility] [place] directed [facility] Duloxetine Duloxetine Yes [place] [address] HCl HCl [place] [facility] Centrum Centrum Yes [place] not [facility] [place] defined [facility] Omeprazole Omeprazole Yes [place] [address] [facility] [place] 30 minutes [facility] - before Memoria morning l meal [facility] Meloxicam Meloxicam Yes [place] [address] [facility] [facility] [place] [facility] Crestor Crestor Yes [place] [address] [facility] [facility] [place] [facility] Vital Signs Vital Name Observation Time Observation Value Comments Source Heart rate 2020-06-10 08:21:00 87 /min [facility] Respiratory rate 2020-06-10 08:21:00 18 /min [facility] Oxygen saturation in 2020-06-10 08:21:00 97 /min [facility] Arterial blood by Medical Ce nter Pulse oximetry Systolic blood 2020-06-10 07:31:00 121 mm[Hg] [facility] Diastolic blood 2020-06-10 07:31:00 73 mm[Hg] [facility] S [facility] Body temperature 2020-06-10 07:31:00 36.72 Shaila [facility] Body height 2020-06-08 16:24:00 157.5 cm [facility] Body weight 2020-06-08 16:24:00 65.772 kg [facility] BMI 2020-06-08 16:24:00 26.52 kg/m2 [facility] Weight 2015-02-09 13:48:32 [facility] [place] Height 2015-02-09 13:48:32 [facility] [place] Heart Rate 2015-02-09 13:48:32 [facility] [place] Systolic (mm Hg) 2015-02-09 13:48:32 Anthony rial [place] Diastolic (mm Hg) 2015-02-09 13:48:32 Mem orial [place] Temperature Oral (F) 2015-02-09 13:48:32 98 F [facility] [place] Weight 2015-01-21 14:04:42 [facility] [place] Height 2015-01-21 14:04:42 [facility] [place] Heart Rate 2015-01-21 14:04:42 [facility] [place] Systolic (mm Hg) 2015-01-21 14:04:42 Anthony rial [place] Diastolic (mm Hg) 2015-01-21 14:04:42 Mem orial [place] Weight 2014-11-26 14:57:22 [facility] [place] Height 2014-11-26 14:57:22 [facility] [place] Heart Rate 2014-11-26 14:57:22 [facility] [place] Systolic (mm Hg) 2014-11-26 14:57:22 Anthony rial [place] Diastolic (mm Hg) 2014-11-26 14:57:22 Mem orial [place] Weight 2014-10-08 14:56:51 [facility] [place] Height 2014-10-08 14:56:51 [facility] [place] Heart Rate 2014-10-08 14:56:51 [facility] [place] Systolic (mm Hg) 2014-10-08 14:56:51 Anthony rial [place] Diastolic (mm Hg) 2014-10-08 14:56:51 Mem orial [place] Procedures Procedure Date / Time Performed Performing Clinician Sourc e BASIC METABOLIC PANEL 2020-06-10 04:49:[address] CBC W/PLT COUNT & AUTO 2020-06-10 04:49:00 Carnes, [facility] BASIC METABOLIC PANEL 2020-06-09 06:11:00 Carnes, [address] CBC W/PLT COUNT & AUTO 2020-06-09 06:11:[facility] URINE CULTURE 2020-06-09 03:39:00 Carnes, [facility] URINALYSIS W/ REFLEX 2020-06-09 03:39:00 CarnesJoe sandoval [facility] URINE CULTURE [facility] FL FLUORO NON-SPECIFIC 2020-06-08 18:20:00 Carnes, [facility] UP TO 1 HOUR [facility] URINE CULTURE 2020-06-08 18:10:46 Carnes, [facility] CYSTOSCOPY,RETROGRADES 2020-06-08 17:39:00 Carnes, [facility] CYSTOSCOPY,INSERTION 2020-06-08 17:39:00 Carnes, [place] [facility] URETERAL STENTS [facility] CYSTOSCOPY,URETEROSCOPY 2020-06-08 17:39:00 Joe Carnes [facility] ECG 12-LEAD 2020-06-08 17:07:38 Unknown, Hl7 Doctor [facility] BLOOD CULTURE 2020-06-08 11:18:00 Shauna [facility] LACTIC ACID, VENOUS 2020-06-08 11:18:00 Mixon [facility] BLOOD CULTURE 2020-06-08 11:17:00 Mixon [facility] TSH/FREE T4 IF INDICATED 2020-06-08 05:14:00 Clarissa Dimas i [facility] BASIC METABOLIC PANEL 2020-06-08 05:14:00 Clarissa Dimas [facility] - (7) [facility] MAGNESIUM 2020-06-08 05:14:00 Simeon Mixon [facility] CBC W/PLT COUNT & AUTO 2020-06-08 05:14:00 Clarissa Dimas [facility] DIFFERENTIAL [facility] REPORT OF PROCEDURE - 2020-06-08 00:00:00 Provider, Default [facility] ENDOSCOPY SCAN Scanning [facility] Plan of Care Planned Activity Planned Date Details Comments Source Future Scheduled 2020-06-04 DEPRESSION SCREENING [facility] - Test 00:00:00 (12+) [code = [facility] DEPRESSION SCREENING (12+)] Future Scheduled 2020-01-03 INFLUENZA VACCINE [place] [facility] Test 00:00:00 [code = INFLUENZA VACCINE] Future Scheduled 2019 65+ PNEUMOCOCCAL [place] [facility] Test 00:00:00 VACCINE (1 of 1 - PPSV23) [code = 65+ PNEUMOCOCCAL VACCINE (1 of 1 - PPSV23)] Future Scheduled 2019 PNEUMOCOCCAL 65+ YRS [facility]00 (1 of 1 - [facility] [id number]) [code = PNEUMOCOCCAL 65+ YRS (1 of - [id number] PCV13)] Future Scheduled 2012-07-[address] [facility] - Test 00:00:00 WELLNESS (YEAR 2 or [facility] FIRST YEAR if no IPPE) [code = MEDICARE ANNUAL WELLNESS (YEAR 2 or FIRST YEAR if no IPPE)] Future Scheduled 2004 BREAST CANCER [facility]ist Test 00:00:00 SCREENING [code = BREAST CANCER SCREENING] Future Scheduled 2004 COLONOSCOPY SCREENING [place] [facility] Test 00:00:00 [code = COLONOSCOPY SCREENING] Future Scheduled 2004 SHINGLES VACCINES (#1) [place] [facility] Test 00:00:00 [code = SHINGLES VACCINES (#1)] Future Scheduled 1970 COVID-19 VACCINE (1 of [place] [facility] Test 00:00:00 2) [code = COVID-19 VACCINE (1 of 2)] Future Scheduled [address] [facility] - Test 00:00:00 [facility] breast (procedure) [code = 932176177] Future Scheduled [address] [facility] [facility] - Test 00:00:00 malignant ne[facility] of [place] colon (procedure) [code = 914003150] Encounters Start End Encounter Admission Attending Care Care Encounter Source Date/Time Date/Time Type Type Clinicians Facility Department ID 2020-07-02 2020-07-02 Outpatient [facility] [id number] [facility] 2020-06-28 2020-06-28 Outpatient [facility] [id number] [facility] 2020-06-17 2020-06-17 Outpatient [facility]LMLC [facility] [id number] [facility] 2020-06-10 2020-06-10 Outpatient [facility] [id number] [facility] 2020-04-08 2020-04-08 Outpatient [facility]LMLC [facility]LML[facility] [id number] [facility] 2020-04-01 2020-04-01 Outpatient STLMLC STLML[facility] [id number] [facility] 2020-03-23 2020-03-23 Outpatient STLMLC [facility]LML[facility] [id number] [facility] 2020-01-07 2020-01-07 [facility] [id number] 11:00:00 11:00:00 [place] - [facility] l Medicine Outpati ent Clinics 2020-01-07 2020-01-07 [facility] [id number] 11:00:00 11:00:00 t [place] [facility] l Medicine Outpati ent Clinics 2019-12-21 2019-12-21 [facility] [id number] 20:23:00 20:23:00 t eDealya s - Drive [facility] Medicine Medicine Outpati ent Clinics 2019-11-17 2019-11-17 [facility] [id number] 07:33:00 07:33:00 t [place] s - Drive [facility] Medicine Outpati ent Clinics 2019-11-12 2019-11-12 [facility] [id number] 13:00:00 13:00:00 t eDealya s - Drive [facility] Medicine Medicine Outpati ent Clinics 2019-11-02 2019-11-02 [facility] [id number] 09:58:00 09:58:00 t eDealya s - Drive [facility] Medicine Outpati ent Clinics 2019-10-06 2019-10-06 [facility] [id number] 15:59:00 15:59:00 t eDealya s - Drive [facility] Medicine Medicine Outpati ent Clinics 2019-09-03 2019-09-03 [facility] [id number] 11:00:00 11:00:00 t eDealya s - Drive [facility] Medicine Outpati ent Clinics 2013-08-05 2013-08-05 Outpatient DENIZ GUAMAN [id number] 3 12:20:05 12:20:05 2013-08-01 2013-08-01 Outpatient DENIZ GUAMAN [id number] 4 14:22:47 14:22:47 Results Test Description Test Time Test Comments Results Result Sourc e Comments ECG 12 lead 2020-06-14 Interface, External [facility] 19:25:59 Ris In - 06/14/2020 - Med ical 7:26 PM Center CSTVentricular Rate 87 BPMAtrial Rate 87 BPMP-R Interval 152 msQRS Duration 86 msQ-T Interval 368 msQTC Calculation(Bazett) 442 msP [place] 36 degreesR [place] 43 degreesT [place] 34 degreesNormal sinus rhythmNormal ECGNo previous ECGs available BLOOD CULTURE 2020-06-13 16:01:00 Test Item Value Reference Range Interpretation Comme nts CULTURE (BEAKER) (test code = 1095) No growth in 5 days Blood Culture - Routine (Right Venipuncture)2020-06-13 16:00:00 Test Item Value Reference Range Interpretation Comments Result (test code = No growth in 5 days 6463-4) [facility] [id number] 16:00:00 Test Item Value Reference Range Interpretation Comments CULTURE (BEAKER) (test No growth in 5 days code = 1095) Urine [id number] 12:20:00 Test Item Value Reference Range Interpretation Comments Result (test code = 6463-4) No growth [facility] [id number] 11:13:00 Test Item Value Reference Range Interpretation Comments CULTURE (BEAKER) (test code = 1095) No growth Basic Metabolic [id number] 05:33:00 Test Item Value Reference Range Interpretation Comments Sodium (test code = 138 meq/L 200-165 8955-2) Potassium (test code = 3.6 meq/L 3.5-5.5 2823-3) Chloride (test code = 107 meq/L 98-106 H 2075-0) CO2 (test code = 22 meq/L 20-31 2028-9) BUN (test code = 10 mg/dL 10-26 3094-0) Creatinine (test code 0.70 mg/dL 0.5-1.2 = 2160-0) Glucose (test code = 89 mg/dL 70-110 2345-7) Calcium (test code = 7.8 mg/dL 8.5-10.5 L 64117-1) EGFR (test code = 84 mL/min/1.73 [place] [address]-0) NOT ACCURATE CREATININE CLEARANCE IN PREDICTING GLOMERULAR FILTRATION RATE . ESTIMATED GFR I S NOT APPLICABLE FOR DIALYSIS PATIENTS. YADY (test code = YADY) [employer] Supervisor ID - [id number] Lab Interpretation Abnormal (test code = 74881-6) [facility] [id number] 05:33:00 Test Item Value Reference Range Interpretation Comments SODIUM (BEAKER) 138 meq/L 135-148 (test code = 381) POTASSIUM (BEAKER) 3.6 meq/L 3.5-5.5 (test code = 379) CHLORIDE (BEAKER) 107 meq/L 98-106 H (test code = 382) CO2 (BEAKER) (test 22 meq/L 20-31 code = 355) BLOOD UREA NITROGEN 10 mg/dL 10-26 (BEAKER) (test code = 354) CREATININE (BEAKER) 0.70 mg/dL 0.50-1.20 (test code = 358) GLUCOSE RANDOM 89 mg/dL 70-110 (BEAKER) (test code = 652) CALCIUM (BEAKER) 7.8 mg/dL 8.5-10.5 L (test code = 697) EGFR (BEAKER) (test 84 mL/min/1.73 ESTIMA DARIUS GFR IS code = 1092) sq m NOT ACCURATE CREATININE CLEARANCE IN PREDICTING GLOMERULAR FILTRATION RATE . ESTIMATED GFR I S NOT APPLICABLE FOR DIALYSIS PATIEN TS. [employer] Supervisor ID - [id number] with platelet count + automated [id number] 05:10:00 Test Item Value Reference Range Interpretation Comments WBC (test code = 6690-2) 7.4 4.0- 10.0 K/L RBC (test code = 789-8) 3.64 4.00- 5.00 M/L L MCHC (test code = 786-4) 34.8 32.0- 36.0 GM/DL L Hematocrit (test code = 4544-3) 31.9 % 36-46 L MCV (test code = 787-2) 87.6 fL 82-99 MCH (test code = 785-6) 30.5 pg 27-33 RDW (test code = 788-0) 13.0 % 12-15 Platelets (test code = 777-3) 141 150- 430 K/CU MM L MPV (test code = 35246-7) 11.1 fL 6-11.5 nRBC (test code = 413) 0 0- 0 /100 WBC % Neutros (test code = 429) 73 % % Lymphs (test code = 430) 17 % % Monos (test code = 431) 10 % % Eos (test code = 432) 0 % % Baso (test code = 437) 0 % # Neutros (test code = 670) 5.36 1.80- 8.00 K/L # Lymphs (test code = 414) 1.21 1.48- 4.50 K/L L # Monos (test code = 415) 0.72 0.00- 1.30 K/L # Eos (test code = 416) 0.00 0.00- 0.50 K/L # Baso (test code = 417) 0.02 0.00- 0.20 K/L Immature Granulocytes-Relative 1 % 0-0 H (test code = 2801) Lab Interpretation (test code = Abnormal 44916-7) [facility] W/PLT COUNT & AUTO [id number] 05:10:00 Test Item Value Reference Range Interpretation Comments WHITE BLOOD CELL COUNT (BEAKER) 7.4 K/ L 4.0-10.0 (test code = 775) RED BLOOD CELL COUNT (BEAKER) 3.64 M/ L 4.00-5.00 L (test code = 761) HEMOGLOBIN (BEAKER) (test code = 11.1 GM/DL 12.0-15.5 L 410) HEMATOCRIT (BEAKER) (test code = 31.9 % 36.0-46.0 L 411) MEAN CORPUSCULAR VOLUME (BEAKER) 87.6 fL 82.0-99.0 (test code = 753) MEAN CORPUSCULAR HEMOGLOBIN 30.5 pg 27.0-33.0 (BEAKER) (test code = 751) MEAN CORPUSCULAR HEMOGLOBIN CONC 34.8 GM/DL 32.0-36.0 (BEAKER) (test code = 752) RED CELL DISTRIBUTION WIDTH 13.0 % 12.0-15.0 (BEAKER) (test code = 412) PLATELET COUNT (BEAKER) (test 141 K/CU MM 150-430 L code = 756) MEAN PLATELET VOLUME (BEAKER) 11.1 fL 6.0-11.5 (test code = 754) NUCLEATED RED BLOOD CELLS 0 /100 WBC 0-0 (BEAKER) (test code = 413) NEUTROPHILS RELATIVE PERCENT 73 % (BEAKER) (test code = 429) LYMPHOCYTES RELATIVE PERCENT 17 % (BEAKER) (test code = 430) MONOCYTES RELATIVE PERCENT 10 % (BEAKER) (test code = 431) EOSINOPHILS RELATIVE PERCENT 0 % (BEAKER) (test code = 432) BASOPHILS RELATIVE PERCENT 0 % (BEAKER) (test code = 437) NEUTROPHILS ABSOLUTE COUNT 5.36 K/ L 1.80-8.00 (BEAKER) (test code = 670) LYMPHOCYTES ABSOLUTE COUNT 1.21 K/ L 1.48-4.50 L (BEAKER) (test code = 414) MONOCYTES ABSOLUTE COUNT (BEAKER) 0.72 K/ L 0.00-1.30 (test code = 415) EOSINOPHILS ABSOLUTE COUNT 0.00 K/ L 0.00-0.50 (BEAKER) (test code = 416) BASOPHILS ABSOLUTE COUNT (BEAKER) 0.02 K/ L 0.00-0.20 (test code = 417) IMMATURE GRANULOCYTES-RELATIVE 1 % 0-0 H PERCENT (BEAKER) (test code = 2801) CBC W/PLT COUNT & AUTO [id number] 07:13:00 Test Item Value Reference Range Interpretation Comments WHITE BLOOD CELL COUNT (BEAKER) 8.8 K/ L 4.0-10.0 (test code = 775) RED BLOOD CELL COUNT (BEAKER) 3.69 M/ L 4.00-5.00 L (test code = 761) HEMOGLOBIN (BEAKER) (test code = 11.4 GM/DL 12.0-15.5 L 410) HEMATOCRIT (BEAKER) (test code = 32.7 % 36.0-46.0 L 411) MEAN CORPUSCULAR VOLUME (BEAKER) 88.6 fL 82.0-99.0 (test code = 753) MEAN CORPUSCULAR HEMOGLOBIN 30.9 pg 27.0-33.0 (BEAKER) (test code = 751) MEAN CORPUSCULAR HEMOGLOBIN CONC 34.9 GM/DL 32.0-36.0 (BEAKER) (test code = 752) RED CELL DISTRIBUTION WIDTH 13.2 % 12.0-15.0 (BEAKER) (test code = 412) PLATELET COUNT (BEAKER) (test 133 K/CU MM 150-430 L code = 756) MEAN PLATELET VOLUME (BEAKER) 10.6 fL 6.0-11.5 (test code = 754) NUCLEATED RED BLOOD CELLS 0 /100 WBC 0-0 (BEAKER) (test code = 413) NEUTROPHILS RELATIVE PERCENT 78 % (BEAKER) (test code = 429) LYMPHOCYTES RELATIVE PERCENT 12 % (BEAKER) (test code = 430) MONOCYTES RELATIVE PERCENT 8 % (BEAKER) (test code = 431) EOSINOPHILS RELATIVE PERCENT 0 % (BEAKER) (test code = 432) BASOPHILS RELATIVE PERCENT 0 % (BEAKER) (test code = 437) NEUTROPHILS ABSOLUTE COUNT 6.88 K/ L 1.80-8.00 (BEAKER) (test code = 670) LYMPHOCYTES ABSOLUTE COUNT 1.09 K/ L 1.48-4.50 L (BEAKER) (test code = 414) MONOCYTES ABSOLUTE COUNT (BEAKER) 0.74 K/ L 0.00-1.30 (test code = 415) EOSINOPHILS ABSOLUTE COUNT 0.00 K/ L 0.00-0.50 (BEAKER) (test code = 416) BASOPHILS ABSOLUTE COUNT (BEAKER) 0.02 K/ L 0.00-0.20 (test code = 417) IMMATURE GRANULOCYTES-RELATIVE 1 % 0-0 H PERCENT (BEAKER) (test code = 2801) BASIC METABOLIC [id number] 06:48:00 Test Item Value Reference Range Interpretation Comments SODIUM (BEAKER) 140 meq/L 135-148 (test code = 381) POTASSIUM (BEAKER) 4.5 meq/L 3.5-5.5 (test code = 379) CHLORIDE (BEAKER) 109 meq/L 98-106 H (test code = 382) CO2 (BEAKER) (test 22 meq/L 20-31 code = 355) BLOOD UREA NITROGEN 14 mg/dL 10-26 (BEAKER) (test code = 354) CREATININE (BEAKER) 0.73 mg/dL 0.50-1.20 (test code = 358) GLUCOSE RANDOM 96 mg/dL 70-110 (BEAKER) (test code = 652) CALCIUM (BEAKER) 8.2 mg/dL 8.5-10.5 L (test code = 697) EGFR (BEAKER) (test 80 mL/min/1.73 ESTIMA DARIUS GFR IS code = 1092) sq m NOT ACCURATE CREATININE CLEARANCE IN PREDICTING GLOMERULAR FILTRATION RATE . ESTIMATED GFR I S NOT APPLICABLE FOR DIALYSIS PATIEN TS. Tank Storage Supervisor ID - [id number] w/Microscopic + Reflex to [id number] 04:06:00 Test Item Value Reference Range Interpretation Comments Color, UA (test code = Yellow 5778-6) Clarity, UA (test code = Hazy 5767-9) Specific [place], UA (test 1.010 1.001-1.035 code = 5811-5) pH, UA (test code = 6.0 5.0-8.0 5803-2) Protein, UA (test code = 100 mg/dL Negative A 27458-8) Glucose, UA (test code = Negative Negative 365) Ketones, UA (test code = Negative Negative 2514-8) Bilirubin, UA (test code = Negative Negative 70255-3) Blood, UA (test code = Large Negative A 70495-9) Nitrite, UA (test code = Negative Negative 5802-4) Leukocytes, UA (test code Large Negative A = 5799-2) Urobilinogen, UA (test <1.0 0.2-1 code = 32732-4) RBC, UA (test code = 73 /HPF 98693-5) WBC, UA (test code = 33 /HPF 5821-4) Bacteria, UA (test code = Moderate 46971-0) Mucus (test code = 8247-9) Rare Squam Epithel, UA (test 1 /HPF code = 73743-8) Specimen Source (test code = 2795) YADY (test code = YADY) Tank Storage Supervisor ID - [auto]Tank Storage Supervisor ID - tech Lab Interpretation (test Abnormal code = 65474-9) [facility] UR[facility] [id number] 04:06:00 Test Item Value Reference Range Interpretation Comments COLOR (BEAKER) (test code = 470) Yellow CLARITY (BEAKER) (test code = 469) Hazy SPECIFIC GRAVITY UA (BEAKER) (test 1.010 1.001-1.035 code = 468) PH UA (BEAKER) (test code = 467) 6.0 5.0-8.0 PROTEIN UA (BEAKER) (test code = 100 mg/dL Negative A 464) GLUCOSE UA (BEAKER) (test code = Negative Negative 365) KETONES UA (BEAKER) (test code = Negative Negative 371) BILIRUBIN UA (BEAKER) (test code = Negative Negative 462) BLOOD UA (BEAKER) (test code = 461) Large Negative A NITRITE UA (BEAKER) (test code = Negative Negative 465) LEUKOCYTE ESTERASE UA (BEAKER) Large Negative A (test code = 466) UROBILINOGEN UA (BEAKER) (test code < mg/dL 0.2-1.0 = 463) RBC UA (BEAKER) (test code = 519) 73 /HPF WBC UA (BEAKER) (test code = 520) 33 /HPF BACTERIA (BEAKER) (test code = 517) Moderate MUCUS (BEAKER) (test code = 1574) Rare SQUAMOUS EPITHELIAL (BEAKER) (test 1 /HPF code = 516) SOURCE(BEAKER) (test code = 2795) Tank Storage Supervisor ID - [auto]Tank Storage Supervisor ID - techFL, FLUORO, NON-SPECIFIC, UP TO 1 HOUR 2020-06-08 18:20:00Reason for exam:->cysto [facility] : 1955 Sex: FFluoroscopic unit utilized for a procedure performed in the OR. No interpretation was requested. Refer to the operative report for findings. Refer to PACS for patient radiation dose information.FL fluoro non-specific up to 1 [id number] 18:20:00Interface, External Ris In - 06/08/2020 6:40 PM CSTFluoroscopic unit utilized for a procedure performed in the OR. No interpretation was requested. Refer to the operative report for findings. Referto PACS for patient radiation dose information.[facility] CenterL[facility] acid, [id number] 11:35:00 Test Item Value Reference Range Interpretation Comments Lactate, Venous (test code 0.71 mmol/L 0.5-2.2 = 2872) YADY (test code = YADY) Tank Storage Supervisor ID - [id number] Lab Interpretation (test Normal code = 19438-9) [facility] CenterLACT[facility] ACID, [id number] 11:35:00 Test Item Value Reference Range Interpretation Comments LACTATE BLOOD VENOUS (2) (BEAKER) 0.71 mmol/L 0.50-2.20 (test code = 2872) Tank Storage Supervisor ID - [id number] 11:31:00 Test Item Value Reference Range Interpretation Comments Magnesium (test code = 1.6 mg/dL 1.5-3 83543-0) YADY (test code = YADY) Tank Storage Supervisor ID - [id number] Lab Interpretation (test Normal code = 00632-9) [facility] [id number] 11:31:00 Test Item Value Reference Range Interpretation Comments MAGNESIUM (BEAKER) (test code = 1.6 mg/dL 1.5-3.0 627) Tank Storage Supervisor ID - [id number]/Free T4 If [id number] 06:23:00 Test Item Value Reference Range Interpretation Comments TSH (test code = 0.690 0.350- 5.500 uIU/mL 12115-9) YADY (test code = YADY) Tank Storage Supervisor ID - [id number] Lab Interpretation (test Normal code = 30995-9) [facility] CenterTSH/FREE T4 IF [id number] 06:23:00 Test Item Value Reference Range Interpretation Comments THYROID STIMULATING HORMONE 0.690 uIU/mL 0.350-5.500 (BEAKER) (test code = 772) Tank Storage Supervisor ID - [id number] METABOLIC [id number] 06:14:00 Test Item Value Reference Range Interpretation Comments SODIUM (BEAKER) 134 meq/L 135-148 L (test code = 381) POTASSIUM (BEAKER) 3.1 meq/L 3.5-5.5 L (test code = 379) CHLORIDE (BEAKER) 101 meq/L 98-106 (test code = 382) CO2 (BEAKER) (test 23 meq/L 20-31 code = 355) BLOOD UREA NITROGEN 19 mg/dL 10-26 (BEAKER) (test code = 354) CREATININE (BEAKER) 0.89 mg/dL 0.50-1.20 (test code = 358) GLUCOSE RANDOM 97 mg/dL 70-110 (BEAKER) (test code = 652) CALCIUM (BEAKER) 8.1 mg/dL 8.5-10.5 L (test code = 697) EGFR (BEAKER) (test 63 mL/min/1.73 ESTIMA DARIUS GFR IS code = 1092) sq m NOT ACCURATE CREATININE CLEARANCE IN PREDICTING GLOMERULAR FILTRATION RATE . ESTIMATED GFR I S NOT APPLICABLE FOR DIALYSIS PATIEN TS. Tank Storage Supervisor ID - [id number] W/PLT COUNT & AUTO [id number] 05:32:00 Test Item Value Reference Range Interpretation Comments WHITE BLOOD CELL COUNT (BEAKER) 11.8 K/ L 4.0-10.0 H (test code = 775) RED BLOOD CELL COUNT (BEAKER) 3.97 M/ L 4.00-5.00 L (test code = 761) HEMOGLOBIN (BEAKER) (test code = 12.2 GM/DL 12.0-15.5 410) HEMATOCRIT (BEAKER) (test code = 35.3 % 36.0-46.0 L 411) MEAN CORPUSCULAR VOLUME (BEAKER) 88.9 fL 82.0-99.0 (test code = 753) MEAN CORPUSCULAR HEMOGLOBIN 30.7 pg 27.0-33.0 (BEAKER) (test code = 751) MEAN CORPUSCULAR HEMOGLOBIN CONC 34.6 GM/DL 32.0-36.0 (BEAKER) (test code = 752) RED CELL DISTRIBUTION WIDTH 12.6 % 12.0-15.0 (BEAKER) (test code = 412) PLATELET COUNT (BEAKER) (test 155 K/CU MM 150-430 code = 756) MEAN PLATELET VOLUME (BEAKER) 10.4 fL 6.0-11.5 (test code = 754) NUCLEATED RED BLOOD CELLS 0 /100 WBC 0-0 (BEAKER) (test code = 413) NEUTROPHILS RELATIVE PERCENT 85 % (BEAKER) (test code = 429) LYMPHOCYTES RELATIVE PERCENT 5 % (BEAKER) (test code = 430) MONOCYTES RELATIVE PERCENT 9 % (BEAKER) (test code = 431) EOSINOPHILS RELATIVE PERCENT 0 % (BEAKER) (test code = 432) BASOPHILS RELATIVE PERCENT 0 % (BEAKER) (test code = 437) NEUTROPHILS ABSOLUTE COUNT 10.03 K/ L 1.80-8.00 H (BEAKER) (test code = 670) LYMPHOCYTES ABSOLUTE COUNT 0.64 K/ L 1.48-4.50 L (BEAKER) (test code = 414) MONOCYTES ABSOLUTE COUNT (BEAKER) 1.03 K/ L 0.00-1.30 (test code = 415) EOSINOPHILS ABSOLUTE COUNT 0.00 K/ L 0.00-0.50 (BEAKER) (test code = 416) BASOPHILS ABSOLUTE COUNT (BEAKER) 0.01 K/ L 0.00-0.20 (test code = 417) IMMATURE GRANULOCYTES-RELATIVE 1 % 0-0 H PERCENT (BEAKER) (test code = 2801) [id number] 00:00:00Ordered by an unspecified provider.[facility]
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
[2020-07-06] MEDS ORDERED: Ringers Lactate 1,000 ML IV ONE ×2 (11:37→14:53)
[2020-07-06] MEDS ORDERED: CEFAZOLIN/SWI 1gm 0 GM/0 ML SYR ONE (11:38)
[2020-07-06] MEDS ORDERED: FENTANYL CITR 100 MCG/2 ML ONE (13:01)
[2020-07-06] MEDS ORDERED: MIDAZOLAM HCL 2 MG/2 ML INJ ONE (13:02)
[2020-07-06] MEDS ORDERED: ONDANSETRON 4 MG/2 ML VIAL ONE (13:02)
[2020-07-06] MEDS ORDERED: dexAMETHasone 10 MG/ML VIAL ONE (13:02)
[2020-07-06] MEDS ORDERED: propofoL 200 MG/20 ML VIAL IV ONE (13:02)
--- NOTE | 2020-07-06 14:41 | RAD REPORT ---
EXAM DESCRIPTION: RAD - Urethrocystogrphy Retrograde - 07/06/2020 2:24 pm FINDINGS: There were 15 KUB images obtained during fluoroscopic assisted placement of a right ureter al stent. Images show stepwise placement of the stent with no suspicious or unexpected finding. Fluoro time was 0.16 minutes.
[2020-07-06] MEDS: PHENAZOPYRIDINE 100MG TAB PO ONE ×2 (15:30→16:18)
[2020-07-06] MEDS: HYDROCODONE/APAP 5/325 MG TAB PO PRN ×2 (15:30→16:18)
[2020-07-06] MEDS ORDERED: PHENAZOPYRIDINE 100MG TAB PO ONE (15:37)
[2020-07-06] MEDS ORDERED: HYDROCODONE/APAP 7.5/325 MG TAB ONE (15:37)
[2020-07-06] MEDS ORDERED: HYDROCODONE/APAP 5/325 MG TAB ONE (15:40)
--- NOTE | 2020-07-06 15:42 | OP ---
Surgeon: JOO MOSLEY Preoperative Diagnosis: Right obstructive ureterolithiasis ~10mm total volume Urinary tract infection. Postoperative Diagnosis: Right obstructive ureterolithiasis ~10mm total volume Urinary tract infection. Principle Procedure: 1. Cystoscopy. 2. Right ureteroscopy with laser lithotripsy. 3. Right ureteroscopic basketing of stone fragments. 4. Right ureteral stent exchange. Indication For Procedure: Ms. Houston presented to the [facility] for surgical evaluation and planning after having been seen urgently with acute kidney injury and signs of sepsis and a stent being placed at an outside facility. She presented for followup where urine culture revealed persistent infection and so she was treated with antimicrobial therapy starting on Sunday in preparation for surgery today. Procedure In Detail: The patient was consented in the preoperative holding area before being transferred to the operative suite where general anesthesia was induced. She was placed in the lithotomy position, padded and secured to the table appropriately. The case was begun using a 22-[place] rigid cystoscope to traverse the urethra and into the bladder with ease. The bladder was surveyed, and there were no mucosal lesions, foreign bodies or stones other than the right ureteral stent which was noted to emanate from the right ureteral orifice. It was grasped using an alligator grasper and delivered to the meatus where a Sensor wire was passed up the stent and did coil in the putative upper pole of the kidney on the right. I then passed a dual-lumen catheter into the distal ureter where it met a point of obstruction likely from the massive stone burden previously seen on CT. A retrograde pyelogram was then performed. Right retrograde pyelography: Using a 70:30 mixture of Omnipaque and saline, contrast was injected via the second lumen of the dual-lumen access catheter and did propagate beyond the point of obstruction and into the renal pelvis where it delineated the calices and informed the presence of the wire in the upper pole. I then removed the dual-lumen catheter and employed a semi-rigid ureteroscope to directly visualize beyond the urethra and into the right ureteral orifice. In the mid distal ureter, I encountered a massive stone burden that I employed a 272 nm laser fiber and power settings of 0.4 joules and 25 hertz to quickly dust the stone burden in the distal ureter. As this was approximately 7 cm in composite stone burden with a bunch of stone fragments all compiled together at that location, it took several minutes of laser lithotripsy to fragment that. I then surveyed beyond the point of stone burden after they were fragmented into the mid proximal ureter. I then removed the ureteroscope and placed a second [employer] guidewire by employing the dual-lumen catheter over the indwelling safety wire to guide access. With the second wire in place, I then employed a flexible ureteroscope to gain access into the upper pole calyx. I then surveyed each of the calices of the kidney in detail, and no additional stones were noted in the upper pole. Prior to gaining access into the kidney, however a point of obstruction was met in the mid ureter where an additional composite stone burden was encountered different from what had been fragmented with semi-rigid ureteroscopy. This was likewise fragmented using the laser fiber, but this time with 0.8 joules and 8 hertz settings. Once this was fragmented, I was then able to pass the scope up the proximal ureter and enter the kidney, which was surveyed in its entirety through all the calices in the renal pelvis. When no additional calculi were noted within the kidney, I then surveyed the ureter from proximal down to distal on the way out fragmenting any stone burden approximately 1 mm or smaller along the way out. I then prior to retracting the ureteroscope completely out employed a 0 tip 1.9-[place] Nitinol basket to grasp some of the many stone fragments that had been created and attempt to deliver them from the ureteral orifice. This was successful, and some of those fragments were sent for chemical analysis. In the end, the stones in the ureter had been completely fragmented and no stones were remnant within the right kidney. As a result, I back-loaded the cystoscope over the indwelling safety wire and placed a 6-[place] by 24 cm double-J right ureteral stent with a coil observed fluoroscopically within the kidney and 1 cystoscopically observed within the bladder. I then decompressed her bladder of fluid, urine, and stone debris, some more which was sent for chemical analysis. The case was then discontinued. The patient was then awakened from general anesthesia, transferred to a stretcher, and then transferred to the recovery room in good condition. Complications: None. Discharge Disposition: She will follow up in the Urology Clinic in approximately 2-3 weeks up to 4 weeks for cystoscopy and ureteral stent extraction. Given the significant burden of stone present within her ureter and the damage to the mucosa noted at multiple points along the way, keeping the stent longer will be of value. So, followup should be established in approximately 3 weeks for cystoscopy and stent extraction. [facility]/DALE Voice ID: [id number] Report ID: [id number]
[2020-07-06 18:20] VITALS: BP 128/66; TEMP 97.6; O2SAT 96
== END 2020-07-06 16:18 | disposition home or self-care (01) ==
LOC: OR 11:03
PROVIDERS: ATTEND Urology
PROC: 0TC68ZZ Extirpation of Matter from Right Ureter, Via Natural or Artificial Opening Endoscopic (ICD-10-PCS; 2020-07-06)
PROC: 0T768DZ Dilation of Right Ureter with Intraluminal Device, Via Natural or Artificial Opening Endoscopic (ICD-10-PCS; principal; 2020-07-06 14:00)
DX: N20.1 Calculus of ureter (principal); N39.0 Urinary tract infection, site not specified; Z20.822 Contact with and (suspected) exposure to COVID-19
CPT/HCPCS: 93005; 87088; 87086; 36415; 84132; 88300; 87077; 87186; 74450; 51610; 53899; 52332; U0002; J2704; J2250; J3010; J1100; J0696; J7120 ×2; J2405; 82360; J0690

== ENCOUNTER 2022-03-24 20:13 | Emergency (ER) | payer OTHER ==
--- OUTSIDE RECORDS SUMMARY | 2022-03-24 20:24 | XMS REPORT | Continuity of Care Document ---
:1955 Author Organization [facility] t Address [address] [place] [address] Care Team Providers Name Role Phone MATIAS TOBIN Primary Care Physician Unavailable Matias Tobin Attending Clinician Unavailable DENA BAPTISTE Attending Clinician Unavailable GWENDOLYN CLARK Attending Clinician Unavailable Gwendolyn Clark MD Attending Clinician Flavio Howell MD Attending Clinician FLAVIO HOWELL Attending Clinician Unavailable Doctor Unassigned, Molena Attending Clinician Unavailable MATIAS TOBIN Admitting Clinician Unavailable DENA BAPTISTE Admitting Clinician Unavailable GWENDOLYN CLARK Admitting Clinician Unavailable FLAVIO HOWELL Admitting Clinician Unavailable ANITA MIXON Admitting Clinician Unavailable Payers Payer Name Policy Type Policy Number Effective Date Expiration Date S [facility] MEDICARE A B [id number] 2011 00:00:00 [place]ICA[place] [id number] 2020 [place] 00:00:00 MEDICARE PART A [id number] 2011 \\T\\ B 00:00:00 MEDICARE MB [id number] 2011 [facility] 00:00:00 - [facility] MEDICAID [id number] 2019 [facility] 00:00:00 - [facility] MEDICARE [id number] 2011 [facility] NOVITAS 00:00:[address] [facility] MEDICAID MC [id number] 2019 [facility] 00:00:00 - [facility] MEDICAID [id number] 2019 [facility] 00:00:00 - [facility] MEDICARE [id number] 2011 [facility] [place] 00:00:00 - [facility] MEDICARE [id number] 2011 [facility] 00:00:00 - [facility] MEDICAID [id number] 2019 [facility] 00:00:00 - [facility] MEDICAID [id number] 2019 [facility] 00:00:00 - [facility] MEDICARE [id number] 2011 [facility] NOVITAS 00:00:00 - [facility] MEDICAID [id number] 2019 [facility] 00:00:00 - [facility] MEDICARE [id number] 2011 [facility] NOVITAS 00:00:00 - [facility] Problems Condition Condition Condition Status Onset Resolution Last Treating Co mments Source Name Details Category Date Date Treatment Clinician Date ACP ACP Disease Active [facility] (advance 06-10 [facility] care 00:00: Medical planning) planning) 00 Cent er Kidney Kidney Disease Active [facility] Right Right Disease Active [facility] upper upper 105 [facility] quadrant quadrant 00:00: Medica l abdominal abdominal 00 Cent er pain pain Hydronephr Hydronephr Disease Active C [facility] osis with osis with 05 [facility] renal and renal and 00:00: Medi nathanael ureteral ureteral Center calculous calculous obstructio obstructio n n Hiatal Hiatal Disease Active 2017-06 [facility] hernia hernia 06-10 st with GERD with GERD 00:00: Hosp jag without without 00 l esophagiti esophagiti s s [id number] Hypothyroi Problem Active Com mon dism, Spirit unspecifie - CHI d type [facility] [id number] [place] [address] osteoarthr Spirit itis, - [facility] right [facility] [id number] Irritable Problem Active Com mon bowel Spirit syndrome - [facility] [id number] GERD Problem Active Common without Spirit esophagiti - CHI s [facility] [id number] Right Problem Active Common flank pain [facility] [id number] Recurrent Problem Active Co mmon [id number] nephrolith Spirit iasis - [facility] [id number] Sore Problem Active Common throat in Spirit the - CHI morning [facility] [id number] Dry mouth Problem Active Comm on Spirit - CH[facility] [id number] Elevated Problem Active Comm on hemoglobin [facility] [id number] Tobacco Problem Active Commo n use Spirit disorder - [facility] [id number] Uncomplica Problem Active Com mon darius opioid Spirit dependence - [facility] [id number] Other Problem Active Common obesity Spirit due to - CHI excess [facility] [id number] Body mass Problem Active Com mon index Spirit [BMI] - [facility] 31.0-31.9, [facility] [id number] 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 [id number] PA Problem Active Common (psoriatic Spirit arthritis) - [facility] [id number] Current Problem Active Common moderate Spirit episode of - [facility] major 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 - [facility]I rhinitis, [facility] d [facility] [id number] S/P Problem Active Common ureteral Spirit stent - [facility] placement [facility] [id number] Mixed Problem Active Common hyperlipid Spirit emia [facility] [id number] Age-relate Problem Active Com mon d Spirit osteoporos - [facility] is without [facility] pathologic Medica l al [place] fracture [id number] Generalize Problem Active Com mon d anxiety [facility] disorder [facility] [id number] Chronic Problem Active Commo n pain [facility] syndrome [facility] [id number] Vitamin D Problem Active Comm on deficiency [facility] [id number] Essential Problem Active Comm on hypertensi Spirit on [facility] [id number] Needs flu Problem Active Com mon shot [facility] [id number] Hypercalce Problem Active Com mon kristina [facility] [id number] Encephalop Problem Active Com mon athy, Spirit unspecifie - [facility] d [facility] [id number] Hydronephr Problem Active Co mmon osis with [facility] urinary [facility] obstructio St n due to [facility] ureteral Medical calculus Center [id number] Ureterolit Problem Active Com mon hiasis [facility] [id number] Snoring Problem Active Common [facility] HTN HTN Disease Active [facility] (hypertens (hypertens Lisa kes ion) ion) [facility] Center HLD HLD Disease Active [facility] (hyperlipi (hyperlipi Lisa kes demia) demia) [facility] Center Chronic Chronic Disease Active [facility] pain [facility] Thyroid Thyroid Disease Active [facility] disease disease [facility] Allergies, Adverse Reactions, Alerts Allergy Allergy Status Severity Reaction(s) Onset Inactive Treating Comm ents Source Name Type Date Date Clinician NAPROXEN Allergy Active Itching [facility] SODIUM 1-[facility] 00:[facility]: Medical 00 Center CELECOXI Allergy Active Itching [facility] B 1[facility] 00:[facility] Medical [facility] Center VARENICL Allergy Active Itching [facility] INE 1-05 [facility] 00:[facility]: Medical 00 Center Naproxen Propensi Active Itching Hands & [facility] Sodium ty to 1-05 feet [facility] adverse 00:00: Medical reaction 00 Center s Celecoxi Propensi Active Itching Hands & [facility] b ty to 1-05 [facility] adverse 00:00: Medical reaction 00 Center s Varenicl Propensi Active Itching Palms/ CHI S t ine ty to 05 feet [facility] adverse 00:00: Medical reaction 00 Center s Varenicl Propensi Active Other (See 2017-06 Blisters [facility]i ine ty to Comments) 1-[address] adverse 00:00: and feet Hospita reaction 00 l s to drug Naproxen Propensi Active Itching 2017-0 "blisters Me thodi Sodium ty to - " st adverse 00:00: Hospita reaction 00 l s to drug Celecoxi Propensi Active Itching 2017-0 "blisters Me thodi b ty to 07-23 " st adverse 00:00: Hospita reaction 00 l s to drug varenicl varenicl Active itching,rash Common ine ine [facility] naproxen naproxen Active itching,rash Common [facility] celecoxi celecoxi Active itching,rash Common b b [facility] NO KNOWN Drug Active Univers ALLERGIE Class ity of S [facility] Family History Family Member Diagnosis Comments Start Date Stop Date Source Natural mother Arthritis [facility] Natural mother Hypertension [facility] Paternal grandfather COPD [facility] Paternal grandmother [facility] Natural brother Arthritis [facility] Natural brother Heart disease [facility] Natural father No Known Problems Met [facility] Maternal grandfather [facility] Maternal grandmother [facility] Social History Social Habit Start Date Stop Date Quantity Comments Source History of Tobacco Current Smoker Co mmon [facility] - Use [facility] Tobacco use and 2020-06-08 2020-06-08 Former user [facility] ukes exposure 00:00:00 00:00:00 Medical Center Alcohol intake 2018-05-15 2018-05-15 Current [facility] 00:00:00 00:00:00 non-drinker of Hospital alcohol (finding) Cigarettes smoked 2018-04-08 2018-04-[address] current (pack per 00:00:00 00:00:00 Hospita l day) - Reported Cigarette 2018-04-08 2018-04-08 [facility] pack-years 00:00:00 00:00:00 Hospital Tobacco Comment 2017-07-23 2017-07-23 Smoking for 50 [facility] dist 00:00:00 00:00:00 years. Smoking Hospital less than 1/2 pack a day. Sex Ass[birth year] [facility] 00:00:00 00:00:00 Hospital Smoking Status Start Date Stop Date Source Tobacco smoking consumption [facility] Current Smoker 2022-01-17 00:00:00 [facility] Medications Ordered Filled Start Stop Current Ordering Indication Dosage Frequency Signature Comments Components Source Medication Medication Date Date Medication? Clinician (SIG) Name Name Bupivicaine Bupivicaine 0 No 2.5mg Common [place] 1-06 Spirit 00:00: - CHI 00 [facility] Kenalog Kenalog 0 No 40mg Common (Triamcinol (Triamcinol 1-06 S pirit one) one) 00:00: - [facility] Bupivicaine Bupivicaine 2021-0 No 2.5mg Common [place] 1-06 Spirit 00:00: - CHI 00 [facility] Kenalog Kenalog 2021-0 No 40mg Common (Triamcinol (Triamcinol 1-06 S pirit one) one) 00:00: - CHI 00 [facility] Bupivicaine Bupivicaine 2021-0 No 2.5mg Common [place] 1-06 Spirit 00:00: - [facility] Kenalog Kenalog 2021-0 No 40mg Common (Triamcinol (Triamcinol 1-06 S pirit one) one) 00:00: - [facility]I 00 [facility] Bupivicaine Bupivicaine 2021-0 No 2.5mg Common [place] 1-06 Spirit 00:00: - [facility] Kenalog Kenalog 2021-0 No 40mg Common (Triamcinol (Triamcinol 1-06 S pirit one) one) 00:00: - [facility]I 00 [facility] Bupivicaine Bupivicaine 2021-0 No 2.5mg [facility] [place] 1-06 Spirit 00:00: - [facility] Kenalog Kenalog 2021-0 No 40mg Common (Triamcinol (Triamcinol 1-06 S pirit one) one) 00:00: - [facility]I 00 [facility] Bupivicaine Bupivicaine 2021-0 No 2.5mg [facility] [place] 1-06 Spirit 00:00: - [facility]I 00 [facility] Kenalog Kenalog 0 No 40mg Common (Triamcinol (Triamcinol 1-06 S pirit one) one) 00:00: - [facility]I 00 [facility] valACYclovi valACYclovi 2020-06 No 1{table TID valACYclov r HCl 1 GM r HCl 1 GM 0-29 t} ir HCl 1 00:00: GM 00 valACYclovi valACYclovi 2020-06 No 1{table TID r HCl 1 GM r HCl 1 GM 0-29 t} 00:00: 00 valACYclovi valACYclovi 2020-06 No 1{table TID valACYclov r HCl 1 GM r HCl 1 GM 0-29 t} ir HCl 1 00:00: GM 00 valACYclovi valACYclovi 2020-06 No 1{table TID r HCl 1 GM r HCl 1 GM 0-29 t} 00:00: 00 valACYclovi valACYclovi 2020-06 No 1{table TID valACYclov r HCl 1 GM r HCl 1 GM 0-29 t} ir HCl 1 00:00: GM 00 valACYclovi valACYclovi 2020-06 No 1{table TID valACYclov r HCl 1 GM r HCl 1 GM 0-29 t} ir HCl 1 00:00: GM 00 valACYclovi valACYclovi 2020-06 No 1{table TID valACYclov r HCl 1 GM r HCl 1 GM 0-29 t} ir HCl 1 00:00: GM 00 valACYclovi valACYclovi 2020-06 No 1{table TID valACYclov r HCl 1 GM r HCl 1 GM 0-29 t} ir HCl 1 00:00: GM 00 valACYclovi valACYclovi 2020-06 No 1{table TID valACYclov r HCl 1 GM r HCl 1 GM 0-29 t} ir HCl 1 00:00: GM 00 valACYclovi valACYclovi 2020-06 No 1{table TID valACYclov r HCl 1 GM r HCl 1 GM 0-29 t} ir HCl 1 00:00: GM 00 valACYclovi valACYclovi 2020-1 No 1{table TID valACYclov r HCl 1 GM r HCl 1 GM 0-29 t} ir HCl 1 00:00: GM 00 Lidocaine 5 Lidocaine 5 2020-0 No 1{appli TID Lidocaine % % 7-28 cation_ 5 % 00:00: as_need 00 ed} Bupivicaine Bupivicaine 2020-0 No 2.5mg Common [place] 7-12 Spirit 00:00: - [facility]I 00 [facility] Kenalog Kenalog 2020-0 No 40mg Common (Triamcinol (Triamcinol 7-12 S pirit one) one) 00:00: - CHI 00 [facility] Bupivicaine Bupivicaine 2020-0 No 2.5mg Common [place] 7-12 Spirit 00:00: - [facility]I 00 [facility] Kenalog Kenalog 2020-0 No 40mg Common (Triamcinol (Triamcinol 7-12 S pirit one) one) 00:00: - CHI 00 [facility] Bupivicaine Bupivicaine 2020-0 No 2.5mg Common [place] 7-12 Spirit 00:00: - CHI 00 [facility] Kenalog Kenalog 2020-0 No 40mg Common (Triamcinol (Triamcinol 7-12 S pirit one) one) 00:00: - CHI 00 [facility] Bupivicaine Bupivicaine 2020-0 No 2.5mg Common [place] 7-12 Spirit 00:00: - [facility]I 00 [facility] Kenalog Kenalog 2020-0 No 40mg Common (Triamcinol (Triamcinol 7-12 S pirit one) one) 00:00: - CHI 00 [facility] Bupivicaine Bupivicaine 2020-0 No 2.5mg Common [place] 7-12 Spirit 00:00: - [facility]I 00 [facility] Kenalog Kenalog 2020-0 No 40mg Common (Triamcinol (Triamcinol 7-12 S pirit one) one) 00:00: - CHI 00 [facility] Bupivicaine Bupivicaine 2021-0 No 2.5mg Common [place] 7-12 Spirit 00:00: - CHI 00 [facility] Kenalog Kenalog No 40mg Common (Triamcinol (Triamcinol 7-12 S pirit one) one) 00:00: - CHI 00 [facility] traMADoL Yes 50mg Take [address] (ULTRAM) 50 -07 by mouth Luke s mg tablet 12:10: every 12 [facility] nathanael 29 (twelve) Center hours. tiZANidine Yes 2mg Q.5D Take [address] (ZANAFLEX) 1-07 by mouth 2 Carley es 2 MG tablet 12:10: (two) Medic al 29 times Center daily. ergocalcife Yes [id number] Q7D Take [facility] rol 1-07 50,000 [facility] (Vitamin 12:10: Units by Medic al D2) 1,250 29 mouth once Cent er mcg (50,000 a week. unit) capsule rosuvastati Yes 20mg QD Take [address] n (CRESTOR) 07 by mouth Luke s 20 MG 12:10: daily. Medical tablet 29 Center DULoxetine Yes 60mg QD Take [address] (CYMBALTA) 07 by mouth [facility]ukes 60 MG 12:10: daily. Medical capsule 29 Center dicyclomine Yes 10mg Q.5D Take [address] (BENTYL) 10 1-07 by mouth 2 Lisa kes MG capsule 12:10: (two) Medica l 29 times Center daily. levothyroxi Yes 88ug Take [address] ne 1-07 mcg by [facility]ukes (SYNTHROID, 12:10: mouth Medic al LEVOTHROID) 29 Every Center 88 MCG morning on tablet an empty stomach. meloxicam Yes 15mg QD Take [address] (MOBIC) 15 1-07 by mouth [facility] MG tablet 12:10: daily. Medica l 29 Center montelukast Yes 10mg QD Take [address] (SINGULAIR) 1-07 by mouth Luke s 10 mg 12:10: nightly. Medical tablet 29 Center omeprazole 2021-0 Yes 40mg Q.5D Take [address] (PriLOSEC) 07 by mouth 2 Carley es 40 MG 12:10: (two) Medical capsule 29 times Center daily. milnacipran Yes 50mg Q.5D Take [address] (Savella) 07 by mouth 2 Luke s 50 mg Tab 12:10: (two) Medical 29 times Center daily. amLODIPine Yes 5mg QD Take [address] (NORVASC) 5 07 by mouth Luke s MG tablet 12:10: daily. Medica l 29 Center oxybutynin 0 Yes 5mg Take 1 CHI S t (DITROPAN) 06-10 tablet (5 Luke s 5 MG tablet 00:00: mg total) M edical 00 by mouth 3 Center (three) times daily as needed (dysuria). acetaminoph Yes 650mg Take [address] en 06-10 tablets [facility] (TYLENOL) 00:00: (650 mg Medic al 325 MG 00 total) by Center tablet mouth every 6 (six) hours as needed for Pain. omeprazole 2017-06 Yes 40mg QD Take 40 mg M ethodi (PriLOSEC) 06-[address] 40 MG 11:27: daily. Hospita capsule 30 l montelukast 2017-06 Yes 10mg QD Take 10 mg Methodi (SINGULAIR) 06-[address] 10 mg 11:27: nightly. Hospita tablet 30 l milnacipran 2017-06 Yes 50mg Q.5D Take 50 mg [facility] (SAVELLA) [address] 50 mg 11:27: (two) Hospita tablet 30 times a l day. rosuvastati 2017-06 Yes 20mg QD Take 20 mg Methodi n (CRESTOR) 06-[address] 20 MG 11:27: nightly. Hospita tablet 30 l levothyroxi 2017-06 Yes 75ug QD Take 75 Met hodi ne -[address] (SYNTHROID, 11:27: mouth Hospi ta LEVOXYL) 75 30 every l mcg tablet morning. CERTOLIZUMA 2017-06 Yes Q30D Inject Meth zoë B PEGOL 06-[address] (CIMZIA 11:27: skin every Hosp jag SUBQ) 30 30 l (thirty) days. Psoriatic arthritis dicyclomine 2017-06 Yes 10mg Q.5D Take 10 mg Methodi (BENTYL) [address] MG capsule 11:27: (two) Hospit a 30 times a l day. magnesium 2017-06 Yes 500mg QD Take 500 Met hodi gluconate 1-[address] (MAGONATE) 11:27: mouth Hospit a 500 mg 30 daily. l tablet tablet acetaminoph 2017-06 Yes 1{tbl} Q6H Take 1 Me thodi en-codeine 1-[address] (TYLENOL 11:27: mouth Hospita WITH 30 every 6 l CODEINE #3) (six) 300-30 mg hours as per tablet needed for moderate pain. pregabalin 2017-06 Yes 50mg Q.5D Take 50 mg M ethodi (LYRICA) 50 06-[address] MG capsule 11:27: (two) Hospit a 30 times a l day. Vitamin D3 Vitamin D3 Yes Matias TAKE 1 Common Tobin CAPSULE BY Spirit MOUTH ONE - CHI TIME PER [facility] Savella Savella Yes Matias 1 tablet Com mon Tobin [facility] Cetirizine Cetirizine Yes Matias 1 tablet Common HCl HCl Tobin [facility] Tramadol Tramadol Yes Matias 1 tablet C ommon HCl HCl Tobin as needed [facility] Amlodipine Amlodipine Yes Matias TAKE 1 Common Besylate Besylate Tobin TABLET BY S pirit MOUTH - CHI EVERY DAY [facility] Levothyroxi Levothyroxi Yes Matias 1 tablet Common ne Sodium ne Sodium Tobin in the Sp raymundo morning on - CHI an empty [facility] Tizanidine Tizanidine Yes Matias 1 tablet Common HCl HCl Tobin as needed [facility] Montelukast Montelukast Yes Matias TAKE 1 Common Sodium Sodium Tobin TABLET BY Spiri t MOUTH - CHI EVERY DAY [facility] Cimzia Cimzia Yes Matias as Common Tobin directed [facility] Duloxetine Duloxetine Yes Mtaias 1 capsule Common HCl HCl Tobin [facility] Centrum Centrum Yes Matias not Common Tobin defined [facility] - [facility] Omeprazole Omeprazole Yes Matias 1 capsule Common Tobin 30 minutes Spirit before - CHI morning [facility] Meloxicam Meloxicam Yes Matias 1 tablet Common Tobin Spirit [facility] Crestor Crestor Yes Matias 1 tablet Com mon Tobin Spirit [facility] Savella 50 Savella 50 No 1{table BID Savella 50 MG MG t} MG Cimzia 2 X Cimzia 2 X No Cimzia 2 X 200 MG 200 MG 200 MG DULoxetine DULoxetine No 1{capsu QD DULoxetine HCl 60 MG HCl 60 MG le} HCl 60 MG Crestor 20 Crestor 20 No Crestor 20 MG MG MG Cetirizine Cetirizine No 1{table QD Cetirizine HCl 10 MG HCl 10 MG t} HCl 10 MG tiZANidine tiZANidine No 1{table QD tiZANidine HCl 4 MG HCl 4 MG t_as_ne HCl 4 MG eded} Omeprazole Omeprazole No QD Omeprazole 40 MG 40 MG 40 MG Linzess Linzess No Linzess Centrum Centrum No Centrum traMADol traMADol No 1{table BID traMADol HCl 50 MG HCl 50 MG t_as_ne HCl 50 MG eded} Vitamin D3 Vitamin D3 No Vitamin D3 1.25 MG 1.25 MG 1.25 MG (88225 UT) (08354 UT) (63973 UT) amLODIPine amLODIPine No amLODIPine Besylate 5 Besylate 5 Besylate 5 MG MG MG Levothyroxi Levothyroxi No Levothyrox ne Sodium ne Sodium ine Sodium 100 MCG 100 MCG 100 MCG Crestor 20 Crestor 20 No 1{table QD Crestor 20 MG MG t} MG Montelukast Montelukast No Montelukas Sodium 10 Sodium 10 t Sodium MG MG 10 MG Levothyroxi Levothyroxi No QD Levothyrox ne Sodium ne Sodium ine Sodium 88 MCG 88 MCG 88 MCG Meloxicam Meloxicam No 1{table Meloxicam 15 MG 15 MG t} 15 MG Sucralfate Sucralfate No 1{table BID Sucralfate 1 GM 1 GM t_on_an 1 GM _empty_ stomach } Dicyclomine Dicyclomine No 1{capsu BID Dicyclomin HCl 10 MG HCl 10 MG les} e HCl 10 MG Sucralfate Sucralfate No 1{table BID Sucralfate 1 GM 1 GM t_on_an 1 GM _empty_ stomach } Savella 50 Savella 50 No 1{table BID Savella 50 MG MG t} MG tiZANidine tiZANidine No 1{table QD tiZANidine HCl 4 MG HCl 4 MG t_as_ne HCl 4 MG eded} traMADol traMADol No 1{table BID traMADol HCl 50 MG HCl 50 MG t_as_ne HCl 50 MG eded} Montelukast Montelukast No Montelukas Sodium 10 Sodium 10 t Sodium MG MG 10 MG Levothyroxi Levothyroxi No Levothyrox ne Sodium ne Sodium ine Sodium 100 MCG 100 MCG 100 MCG Omeprazole Omeprazole No Omeprazole 40 MG 40 MG 40 MG Vitamin D3 Vitamin D3 No Vitamin D3 1.25 MG 1.25 MG 1.25 MG (28469 UT) (22670 UT) (36721 UT) amLODIPine amLODIPine No amLODIPine Besylate 5 Besylate 5 Besylate 5 MG MG MG Dicyclomine Dicyclomine No 1{capsu BID Dicyclomin HCl 10 MG HCl 10 MG les} e HCl 10 MG Levothyroxi Levothyroxi No QD Levothyrox ne Sodium ne Sodium ine Sodium 88 MCG 88 MCG 88 MCG Meloxicam Meloxicam No 1{table Meloxicam 15 MG 15 MG t} 15 MG DULoxetine DULoxetine No 1{capsu QD DULoxetine HCl 60 MG HCl 60 MG le} HCl 60 MG Centrum Centrum No Centrum Crestor 20 Crestor 20 No Crestor 20 MG MG MG Cetirizine Cetirizine No 1{table QD Cetirizine HCl 10 MG HCl 10 MG t} HCl 10 MG Linzess Linzess No Linzess Crestor 20 Crestor 20 No 1{table QD Crestor 20 MG MG t} MG Lidocaine 5 Lidocaine 5 No 1{appli TID Lidocaine % % cation_ 5 % as_need ed} Cimzia 2 X Cimzia 2 X No Cimzia 2 X 200 MG 200 MG 200 MG Sucralfate Sucralfate No 1{table BID 1 GM 1 GM t_on_an _empty_ stomach } Savella 50 Savella 50 No 1{table BID MG MG t} tiZANidine tiZANidine No 1{table QD HCl 4 MG HCl 4 MG t_as_ne eded} traMADol traMADol No 1{table BID HCl 50 MG HCl 50 MG t_as_ne eded} Montelukast Montelukast No Sodium 10 Sodium 10 MG MG Levothyroxi Levothyroxi No ne Sodium ne Sodium 100 MCG 100 MCG Omeprazole Omeprazole No 40 MG 40 MG Vitamin D3 Vitamin D3 No 1.25 MG 1.25 MG ( UT) ( UT) amLODIPine amLODIPine No Besylate 5 Besylate 5 MG MG Dicyclomine Dicyclomine No 1{capsu BID HCl 10 MG HCl 10 MG les} Levothyroxi Levothyroxi No QD ne Sodium ne Sodium 88 MCG 88 MCG Meloxicam Meloxicam No 1{table 15 MG 15 MG t} DULoxetine DULoxetine No 1{capsu QD HCl 60 MG HCl 60 MG le} Centrum Centrum No Crestor 20 Crestor 20 No MG MG Cetirizine Cetirizine No 1{table QD HCl 10 MG HCl 10 MG t} Linzess Linzess No Crestor 20 Crestor 20 No 1{table QD MG MG t} Lidocaine 5 Lidocaine 5 No 1{appli TID % % cation_ as_need ed} Cimzia 2 X Cimzia 2 X No 200 MG 200 MG Omeprazole Omeprazole No QD Omeprazole 40 MG 40 MG 40 MG Sucralfate Sucralfate No 1{table BID Sucralfate 1 GM 1 GM t_on_an 1 GM _empty_ stomach } Levothyroxi Levothyroxi No QD Levothyrox ne Sodium ne Sodium ine Sodium 88 MCG 88 MCG 88 MCG Crestor 20 Crestor 20 No Crestor 20 MG MG MG Montelukast Montelukast No 1{table QD Montelukas Sodium 10 Sodium 10 t} t Sodium MG MG 10 MG Lidocaine 5 Lidocaine 5 No 1{appli TID Lidocaine % % cation_ 5 % as_need ed} Vitamin D3 Vitamin D3 No Vitamin D3 1.25 MG 1.25 MG 1.25 MG (77990 UT) (56529 UT) (31240 UT) Montelukast Montelukast No Montelukas Sodium 10 Sodium 10 t Sodium MG MG 10 MG Savella 50 Savella 50 No 1{table BID Savella 50 MG MG t} MG Levothyroxi Levothyroxi No Levothyrox ne Sodium ne Sodium ine Sodium 100 MCG 100 MCG 100 MCG Levothyroxi Levothyroxi No QD Levothyrox ne Sodium ne Sodium ine Sodium 100 MCG 100 MCG 100 MCG Dicyclomine Dicyclomine No 1{capsu BID Dicyclomin HCl 10 MG HCl 10 MG les} e HCl 10 MG Centrum Centrum No Centrum amLODIPine amLODIPine No amLODIPine Besylate 5 Besylate 5 Besylate 5 MG MG MG Cetirizine Cetirizine No 1{table QD Cetirizine HCl 10 MG HCl 10 MG t} HCl 10 MG Omeprazole Omeprazole No Omeprazole 40 MG 40 MG 40 MG traMADol traMADol No 1{table BID traMADol HCl 50 MG HCl 50 MG t_as_ne HCl 50 MG eded} Cimzia 2 X Cimzia 2 X No Cimzia 2 X 200 MG 200 MG 200 MG Meloxicam Meloxicam No 1{table Meloxicam 15 MG 15 MG t} 15 MG DULoxetine DULoxetine No 1{capsu QD DULoxetine HCl 60 MG HCl 60 MG le} HCl 60 MG Crestor 20 Crestor 20 No 1{table QD Crestor 20 MG MG t} MG amLODIPine amLODIPine No 1{table QD amLODIPine Besylate 5 Besylate 5 t} Besylate 5 MG MG MG Linzess Linzess No Linzess tiZANidine tiZANidine No 1{table QD tiZANidine HCl 4 MG HCl 4 MG t_as_ne HCl 4 MG eded} DULoxetine DULoxetine No 1{capsu QD HCl 60 MG HCl 60 MG le} traMADol traMADol No 1{table BID HCl 50 MG HCl 50 MG t_as_ne eded} amLODIPine amLODIPine No Besylate 5 Besylate 5 MG MG Omeprazole Omeprazole No QD 40 MG 40 MG Levothyroxi Levothyroxi No QD ne Sodium ne Sodium 88 MCG 88 MCG Crestor 20 Crestor 20 No 1{table QD MG MG t} Montelukast Montelukast No 1{table QD Sodium 10 Sodium 10 t} MG MG Cimzia 2 X Cimzia 2 X No 200 MG 200 MG Montelukast Montelukast No Sodium 10 Sodium 10 MG MG Levothyroxi Levothyroxi No ne Sodium ne Sodium 100 MCG 100 MCG Crestor 20 Crestor 20 No MG MG Dicyclomine Dicyclomine No 1{capsu BID HCl 10 MG HCl 10 MG les} Cetirizine Cetirizine No 1{table QD HCl 10 MG HCl 10 MG t} Omeprazole Omeprazole No 40 MG 40 MG Levothyroxi Levothyroxi No QD ne Sodium ne Sodium 100 MCG 100 MCG Savella 50 Savella 50 No 1{table BID MG MG t} Meloxicam Meloxicam No 1{table 15 MG 15 MG t} Sucralfate Sucralfate No 1{table BID 1 GM 1 GM t_on_an _empty_ stomach } amLODIPine amLODIPine No 1{table QD Besylate 5 Besylate 5 t} MG MG Vitamin D3 Vitamin D3 No 1.25 MG 1.25 MG (50846 UT) (13126 UT) tiZANidine tiZANidine No 1{table QD HCl 4 MG HCl 4 MG t_as_ne eded} Linzess Linzess No Centrum Centrum No Lidocaine 5 Lidocaine 5 No 1{appli TID % % cation_ as_need ed} DULoxetine DULoxetine No 1{capsu QD DULoxetine HCl 60 MG HCl 60 MG le} HCl 60 MG traMADol traMADol No 1{table BID traMADol HCl 50 MG HCl 50 MG t_as_ne HCl 50 MG eded} amLODIPine amLODIPine No amLODIPine Besylate 5 Besylate 5 Besylate 5 MG MG MG Omeprazole Omeprazole No QD Omeprazole 40 MG 40 MG 40 MG Levothyroxi Levothyroxi No QD Levothyrox ne Sodium ne Sodium ine Sodium 88 MCG 88 MCG 88 MCG Crestor 20 Crestor 20 No 1{table QD Crestor 20 MG MG t} MG Montelukast Montelukast No 1{table QD Montelukas Sodium 10 Sodium 10 t} t Sodium MG MG 10 MG Cimzia 2 X Cimzia 2 X No Cimzia 2 X 200 MG 200 MG 200 MG Montelukast Montelukast No Montelukas Sodium 10 Sodium 10 t Sodium MG MG 10 MG Levothyroxi Levothyroxi No Levothyrox ne Sodium ne Sodium ine Sodium 100 MCG 100 MCG 100 MCG Crestor 20 Crestor 20 No Crestor 20 MG MG MG Dicyclomine Dicyclomine No 1{capsu BID Dicyclomin HCl 10 MG HCl 10 MG les} e HCl 10 MG Cetirizine Cetirizine No 1{table QD Cetirizine HCl 10 MG HCl 10 MG t} HCl 10 MG Omeprazole Omeprazole No Omeprazole 40 MG 40 MG 40 MG Levothyroxi Levothyroxi No QD Levothyrox ne Sodium ne Sodium ine Sodium 100 MCG 100 MCG 100 MCG Savella 50 Savella 50 No 1{table BID Savella 50 MG MG t} MG Meloxicam Meloxicam No 1{table Meloxicam 15 MG 15 MG t} 15 MG Sucralfate Sucralfate No 1{table BID Sucralfate 1 GM 1 GM t_on_an 1 GM _empty_ stomach } amLODIPine amLODIPine No 1{table QD amLODIPine Besylate 5 Besylate 5 t} Besylate 5 MG MG MG Vitamin D3 Vitamin D3 No Vitamin D3 1.25 MG 1.25 MG 1.25 MG (76617 UT) (90857 UT) (60608 UT) tiZANidine tiZANidine No 1{table QD tiZANidine HCl 4 MG HCl 4 MG t_as_ne HCl 4 MG eded} Linzess Linzess No Linzess Centrum Centrum No Centrum Lidocaine 5 Lidocaine 5 No 1{appli TID Lidocaine % % cation_ 5 % as_need ed} Sucralfate Sucralfate No 1{table BID Sucralfate 1 GM 1 GM t_on_an 1 GM _empty_ stomach } Cetirizine Cetirizine No 1{table QD Cetirizine HCl 10 MG HCl 10 MG t} HCl 10 MG Rosuvastati Rosuvastati No Rosuvastat n Calcium n Calcium in Calcium 20 MG 20 MG 20 MG Omeprazole Omeprazole No Omeprazole 40 MG 40 MG 40 MG Lidocaine 5 Lidocaine 5 No Lidocaine % % 5 % Meloxicam Meloxicam No 1{table Meloxicam 15 MG 15 MG t} 15 MG DULoxetine DULoxetine No 1{capsu QD DULoxetine HCl 60 MG HCl 60 MG le} HCl 60 MG Montelukast Montelukast No Montelukas Sodium 10 Sodium 10 t Sodium MG MG 10 MG Centrum Centrum No Centrum amLODIPine amLODIPine No amLODIPine Besylate 5 Besylate 5 Besylate 5 MG MG MG amLODIPine amLODIPine No 1{table QD amLODIPine Besylate 5 Besylate 5 t} Besylate 5 MG MG MG Vitamin D3 Vitamin D3 No Vitamin D3 1.25 MG 1.25 MG 1.25 MG (63432 UT) ( UT) ( UT) Cimzia 2 X Cimzia 2 X No Cimzia 2 X 200 MG 200 MG 200 MG Linzess Linzess No Linzess Savella 50 Savella 50 No 1{table BID Savella 50 MG MG t} MG traMADol traMADol No 1{table BID traMADol HCl 50 MG HCl 50 MG t_as_ne HCl 50 MG eded} Levothyroxi Levothyroxi No QD Levothyrox ne Sodium ne Sodium ine Sodium 88 MCG 88 MCG 88 MCG tiZANidine tiZANidine No 1{table QD tiZANidine HCl 4 MG HCl 4 MG t_as_ne HCl 4 MG eded} Omeprazole Omeprazole No QD Omeprazole 40 MG 40 MG 40 MG Levothyroxi Levothyroxi No Levothyrox ne Sodium ne Sodium ine Sodium 100 MCG 100 MCG 100 MCG Dicyclomine Dicyclomine No 1{capsu BID Dicyclomin HCl 10 MG HCl 10 MG les} e HCl 10 MG Crestor 20 Crestor 20 No Crestor 20 MG MG MG Sucralfate Sucralfate No 1{table BID Sucralfate 1 GM 1 GM t_on_an 1 GM _empty_ stomach } Cetirizine Cetirizine No 1{table QD Cetirizine HCl 10 MG HCl 10 MG t} HCl 10 MG Rosuvastati Rosuvastati No Rosuvastat n Calcium n Calcium in Calcium 20 MG 20 MG 20 MG Omeprazole Omeprazole No Omeprazole 40 MG 40 MG 40 MG Lidocaine 5 Lidocaine 5 No Lidocaine % % 5 % Meloxicam Meloxicam No 1{table Meloxicam 15 MG 15 MG t} 15 MG DULoxetine DULoxetine No 1{capsu QD DULoxetine HCl 60 MG HCl 60 MG le} HCl 60 MG Montelukast Montelukast No Montelukas Sodium 10 Sodium 10 t Sodium MG MG 10 MG Centrum Centrum No Centrum amLODIPine amLODIPine No amLODIPine Besylate 5 Besylate 5 Besylate 5 MG MG MG amLODIPine amLODIPine No 1{table QD amLODIPine Besylate 5 Besylate 5 t} Besylate 5 MG MG MG Vitamin D3 Vitamin D3 No Vitamin D3 1.25 MG 1.25 MG 1.25 MG (94366 UT) ( UT) ( UT) Cimzia 2 X Cimzia 2 X No Cimzia 2 X 200 MG 200 MG 200 MG Linzess Linzess No Linzess Savella 50 Savella 50 No 1{table BID Savella 50 MG MG t} MG traMADol traMADol No 1{table BID traMADol HCl 50 MG HCl 50 MG t_as_ne HCl 50 MG eded} Levothyroxi Levothyroxi No QD Levothyrox ne Sodium ne Sodium ine Sodium 88 MCG 88 MCG 88 MCG tiZANidine tiZANidine No 1{table QD tiZANidine HCl 4 MG HCl 4 MG t_as_ne HCl 4 MG eded} Omeprazole Omeprazole No QD Omeprazole 40 MG 40 MG 40 MG Levothyroxi Levothyroxi No Levothyrox ne Sodium ne Sodium ine Sodium 100 MCG 100 MCG 100 MCG Dicyclomine Dicyclomine No 1{capsu BID Dicyclomin HCl 10 MG HCl 10 MG les} e HCl 10 MG Crestor 20 Crestor 20 No Crestor 20 MG MG MG Vitamin D3 Vitamin D3 No Vitamin D3 1.25 MG 1.25 MG 1.25 MG ( UT) ( UT) ( UT) Levothyroxi Levothyroxi No Levothyrox ne Sodium ne Sodium ine Sodium 100 MCG 100 MCG 100 MCG Crestor 20 Crestor 20 No Crestor 20 MG MG MG Dicyclomine Dicyclomine No 1{capsu BID Dicyclomin HCl 10 MG HCl 10 MG les} e HCl 10 MG Lidocaine 5 Lidocaine 5 No Lidocaine % % 5 % Sucralfate Sucralfate No 1{table BID Sucralfate 1 GM 1 GM t_on_an 1 GM _empty_ stomach } amLODIPine amLODIPine No amLODIPine Besylate 5 Besylate 5 Besylate 5 MG MG MG traMADol traMADol No 1{table BID traMADol HCl 50 MG HCl 50 MG t_as_ne HCl 50 MG eded} Montelukast Montelukast No Montelukas Sodium 10 Sodium 10 t Sodium MG MG 10 MG Omeprazole Omeprazole No QD Omeprazole 40 MG 40 MG 40 MG Centrum Centrum No Centrum Meloxicam Meloxicam No 1{table Meloxicam 15 MG 15 MG t} 15 MG tiZANidine tiZANidine No 1{table QD tiZANidine HCl 4 MG HCl 4 MG t_as_ne HCl 4 MG eded} Motegrity Motegrity No Motegrity Linzess Linzess No Linzess Omeprazole Omeprazole No Omeprazole 40 MG 40 MG 40 MG Rosuvastati Rosuvastati No Rosuvastat n Calcium n Calcium in Calcium 20 MG 20 MG 20 MG amLODIPine amLODIPine No 1{table QD amLODIPine Besylate 5 Besylate 5 t} Besylate 5 MG MG MG Cetirizine Cetirizine No 1{table QD Cetirizine HCl 10 MG HCl 10 MG t} HCl 10 MG DULoxetine DULoxetine No DULoxetine HCl 60 MG HCl 60 MG HCl 60 MG Levothyroxi Levothyroxi No QD Levothyrox ne Sodium ne Sodium ine Sodium 88 MCG 88 MCG 88 MCG Savella 50 Savella 50 No 1{table BID Savella 50 MG MG t} MG Cimzia 2 X Cimzia 2 X No Cimzia 2 X 200 MG 200 MG 200 MG Vitamin D3 Vitamin D3 No Vitamin D3 1.25 MG 1.25 MG 1.25 MG (11181 UT) (65682 UT) (63766 UT) Levothyroxi Levothyroxi No QD Levothyrox ne Sodium ne Sodium ine Sodium 112 MCG 112 MCG 112 MCG Levothyroxi Levothyroxi No Levothyrox ne Sodium ne Sodium ine Sodium 100 MCG 100 MCG 100 MCG Crestor 20 Crestor 20 No 1{table QD Crestor 20 MG MG t} MG Savella 50 Savella 50 No 1{table BID Savella 50 MG MG t} MG Levothyroxi Levothyroxi No QD Levothyrox ne Sodium ne Sodium ine Sodium 88 MCG 88 MCG 88 MCG Omeprazole Omeprazole No QD Omeprazole 40 MG 40 MG 40 MG amLODIPine amLODIPine No 1{table QD amLODIPine Besylate 5 Besylate 5 t} Besylate 5 MG MG MG Dicyclomine Dicyclomine No 1{capsu BID Dicyclomin HCl 10 MG HCl 10 MG les} e HCl 10 MG Cetirizine Cetirizine No 1{table QD Cetirizine HCl 10 MG HCl 10 MG t} HCl 10 MG DULoxetine DULoxetine No DULoxetine HCl 60 MG HCl 60 MG HCl 60 MG Rosuvastati Rosuvastati No Rosuvastat n Calcium n Calcium in Calcium 20 MG 20 MG 20 MG Montelukast Montelukast No Montelukas Sodium 10 Sodium 10 t Sodium MG MG 10 MG Meloxicam Meloxicam No 1{table Meloxicam 15 MG 15 MG t} 15 MG amLODIPine amLODIPine No amLODIPine Besylate 5 Besylate 5 Besylate 5 MG MG MG Cimzia 2 X Cimzia 2 X No Cimzia 2 X 200 MG 200 MG 200 MG Crestor 20 Crestor 20 No Crestor 20 MG MG MG Omeprazole Omeprazole No Omeprazole 40 MG 40 MG 40 MG Motegrity Motegrity No Motegrity DULoxetine DULoxetine No 1{capsu QD DULoxetine HCl 60 MG HCl 60 MG le} HCl 60 MG Sucralfate Sucralfate No 1{table BID Sucralfate 1 GM 1 GM t_on_an 1 GM _empty_ stomach } Lidocaine 5 Lidocaine 5 No Lidocaine % % 5 % tiZANidine tiZANidine No 1{table QD tiZANidine HCl 4 MG HCl 4 MG t_as_ne HCl 4 MG eded} Montelukast Montelukast No 1{table QD Montelukas Sodium 10 Sodium 10 t} t Sodium MG MG 10 MG Centrum Centrum No Centrum traMADol traMADol No 1{table BID traMADol HCl 50 MG HCl 50 MG t_as_ne HCl 50 MG eded} Linzess Linzess No Linzess Vitamin D3 Vitamin D3 No Vitamin D3 1.25 MG 1.25 MG 1.25 MG (09210 UT) (29759 UT) (17405 UT) Levothyroxi Levothyroxi No QD Levothyrox ne Sodium ne Sodium ine Sodium 112 MCG 112 MCG 112 MCG Levothyroxi Levothyroxi No Levothyrox ne Sodium ne Sodium ine Sodium 100 MCG 100 MCG 100 MCG Crestor 20 Crestor 20 No 1{table QD Crestor 20 MG MG t} MG Savella 50 Savella 50 No 1{table BID Savella 50 MG MG t} MG Levothyroxi Levothyroxi No QD Levothyrox ne Sodium ne Sodium ine Sodium 88 MCG 88 MCG 88 MCG Omeprazole Omeprazole No QD Omeprazole 40 MG 40 MG 40 MG amLODIPine amLODIPine No 1{table QD amLODIPine Besylate 5 Besylate 5 t} Besylate 5 MG MG MG Dicyclomine Dicyclomine No 1{capsu BID Dicyclomin HCl 10 MG HCl 10 MG les} e HCl 10 MG Cetirizine Cetirizine No 1{table QD Cetirizine HCl 10 MG HCl 10 MG t} HCl 10 MG DULoxetine DULoxetine No DULoxetine HCl 60 MG HCl 60 MG HCl 60 MG Rosuvastati Rosuvastati No Rosuvastat n Calcium n Calcium in Calcium 20 MG 20 MG 20 MG Montelukast Montelukast No Montelukas Sodium 10 Sodium 10 t Sodium MG MG 10 MG Meloxicam Meloxicam No 1{table Meloxicam 15 MG 15 MG t} 15 MG amLODIPine amLODIPine No amLODIPine Besylate 5 Besylate 5 Besylate 5 MG MG MG Cimzia 2 X Cimzia 2 X No Cimzia 2 X 200 MG 200 MG 200 MG Crestor 20 Crestor 20 No Crestor 20 MG MG MG Omeprazole Omeprazole No Omeprazole 40 MG 40 MG 40 MG Motegrity Motegrity No Motegrity DULoxetine DULoxetine No 1{capsu QD DULoxetine HCl 60 MG HCl 60 MG le} HCl 60 MG Sucralfate Sucralfate No 1{table BID Sucralfate 1 GM 1 GM t_on_an 1 GM _empty_ stomach } Lidocaine 5 Lidocaine 5 No Lidocaine % % 5 % tiZANidine tiZANidine No 1{table QD tiZANidine HCl 4 MG HCl 4 MG t_as_ne HCl 4 MG eded} Montelukast Montelukast No 1{table QD Montelukas Sodium 10 Sodium 10 t} t Sodium MG MG 10 MG Centrum Centrum No Centrum traMADol traMADol No 1{table BID traMADol HCl 50 MG HCl 50 MG t_as_ne HCl 50 MG eded} Linzess Linzess No Linzess Vitamin D3 Vitamin D3 No Vitamin D3 1.25 MG 1.25 MG 1.25 MG (53490 UT) (67676 UT) ( UT) Levothyroxi Levothyroxi No QD Levothyrox ne Sodium ne Sodium ine Sodium 112 MCG 112 MCG 112 MCG Levothyroxi Levothyroxi No Levothyrox ne Sodium ne Sodium ine Sodium 100 MCG 100 MCG 100 MCG Crestor 20 Crestor 20 No 1{table QD Crestor 20 MG MG t} MG Savella 50 Savella 50 No 1{table BID Savella 50 MG MG t} MG Levothyroxi Levothyroxi No QD Levothyrox ne Sodium ne Sodium ine Sodium 88 MCG 88 MCG 88 MCG Omeprazole Omeprazole No QD Omeprazole 40 MG 40 MG 40 MG amLODIPine amLODIPine No 1{table QD amLODIPine Besylate 5 Besylate 5 t} Besylate 5 MG MG MG Dicyclomine Dicyclomine No 1{capsu BID Dicyclomin HCl 10 MG HCl 10 MG les} e HCl 10 MG Cetirizine Cetirizine No 1{table QD Cetirizine HCl 10 MG HCl 10 MG t} HCl 10 MG DULoxetine DULoxetine No DULoxetine HCl 60 MG HCl 60 MG HCl 60 MG Rosuvastati Rosuvastati No Rosuvastat n Calcium n Calcium in Calcium 20 MG 20 MG 20 MG Montelukast Montelukast No Montelukas Sodium 10 Sodium 10 t Sodium MG MG 10 MG Meloxicam Meloxicam No 1{table Meloxicam 15 MG 15 MG t} 15 MG amLODIPine amLODIPine No amLODIPine Besylate 5 Besylate 5 Besylate 5 MG MG MG Cimzia 2 X Cimzia 2 X No Cimzia 2 X 200 MG 200 MG 200 MG Crestor 20 Crestor 20 No Crestor 20 MG MG MG Omeprazole Omeprazole No Omeprazole 40 MG 40 MG 40 MG Motegrity Motegrity No Motegrity DULoxetine DULoxetine No 1{capsu QD DULoxetine HCl 60 MG HCl 60 MG le} HCl 60 MG Sucralfate Sucralfate No 1{table BID Sucralfate 1 GM 1 GM t_on_an 1 GM _empty_ stomach } Lidocaine 5 Lidocaine 5 No Lidocaine % % 5 % tiZANidine tiZANidine No 1{table QD tiZANidine HCl 4 MG HCl 4 MG t_as_ne HCl 4 MG eded} Montelukast Montelukast No 1{table QD Montelukas Sodium 10 Sodium 10 t} t Sodium MG MG 10 MG Centrum Centrum No Centrum traMADol traMADol No 1{table BID traMADol HCl 50 MG HCl 50 MG t_as_ne HCl 50 MG eded} Linzess Linzess No Linzess valACYclovi valACYclovi No 1{table TID valACYclov r HCl 1 GM r HCl 1 GM t} ir HCl 1 GM Lidocaine 5 Lidocaine 5 No 1{appli TID Lidocaine % % cation_ 5 % as_need ed} amLODIPine amLODIPine No amLODIPine Besylate 5 Besylate 5 Besylate 5 MG MG MG Cimzia 2 X Cimzia 2 X No Cimzia 2 X 200 MG 200 MG 200 MG Levothyroxi Levothyroxi No Levothyrox ne Sodium ne Sodium ine Sodium 112 MCG 112 MCG 112 MCG Levothyroxi Levothyroxi No QD Levothyrox ne Sodium ne Sodium ine Sodium 88 MCG 88 MCG 88 MCG Meloxicam Meloxicam No 1{table Meloxicam 15 MG 15 MG t} 15 MG DULoxetine DULoxetine No 1{capsu QD DULoxetine HCl 60 MG HCl 60 MG le} HCl 60 MG traMADol traMADol No 1{table BID traMADol HCl 50 MG HCl 50 MG t_as_ne HCl 50 MG eded} Dicyclomine Dicyclomine No 1{capsu BID Dicyclomin HCl 10 MG HCl 10 MG les} e HCl 10 MG valACYclovi valACYclovi No 1{table TID valACYclov r HCl 1 GM r HCl 1 GM t} ir HCl 1 GM Linzess Linzess No Linzess Crestor 20 Crestor 20 No Crestor 20 MG MG MG Omeprazole Omeprazole No Omeprazole 40 MG 40 MG 40 MG DULoxetine DULoxetine No DULoxetine HCl 60 MG HCl 60 MG HCl 60 MG Crestor 20 Crestor 20 No 1{table QD Crestor 20 MG MG t} MG Savella 50 Savella 50 No 1{table BID Savella 50 MG MG t} MG Levothyroxi Levothyroxi No Levothyrox ne Sodium ne Sodium ine Sodium 100 MCG 100 MCG 100 MCG Sucralfate Sucralfate No 1{table BID Sucralfate 1 GM 1 GM t_on_an 1 GM _empty_ stomach } Omeprazole Omeprazole No QD Omeprazole 40 MG 40 MG 40 MG Cetirizine Cetirizine No 1{table QD Cetirizine HCl 10 MG HCl 10 MG t} HCl 10 MG Lidocaine 5 Lidocaine 5 No Lidocaine % % 5 % Montelukast Montelukast No Montelukas Sodium 10 Sodium 10 t Sodium MG MG 10 MG Rosuvastati Rosuvastati No Rosuvastat n Calcium n Calcium in Calcium 20 MG 20 MG 20 MG Vitamin D3 Vitamin D3 No Vitamin D3 1.25 MG 1.25 MG 1.25 MG (95450 UT) ( UT) ( UT) Motegrity Motegrity No Motegrity Centrum Centrum No Centrum tiZANidine tiZANidine No 1{table QD tiZANidine HCl 4 MG HCl 4 MG t_as_ne HCl 4 MG eded} Lidocaine 5 Lidocaine 5 No 1{appli TID Lidocaine % % cation_ 5 % as_need ed} Motegrity Motegrity No Motegrity Cetirizine Cetirizine No 1{table QD Cetirizine HCl 10 MG HCl 10 MG t} HCl 10 MG Crestor 20 Crestor 20 No Crestor 20 MG MG MG Cimzia 2 X Cimzia 2 X No Cimzia 2 X 200 MG 200 MG 200 MG amLODIPine amLODIPine No 1{table QD amLODIPine Besylate 5 Besylate 5 t} Besylate 5 MG MG MG DULoxetine DULoxetine No 1{capsu QD DULoxetine HCl 60 MG HCl 60 MG le} HCl 60 MG Lidocaine 5 Lidocaine 5 No 1{appli TID Lidocaine % % cation_ 5 % as_need ed} Crestor 20 Crestor 20 No 1{table QD Crestor 20 MG MG t} MG Montelukast Montelukast No 1{table QD Montelukas Sodium 10 Sodium 10 t} t Sodium MG MG 10 MG amLODIPine amLODIPine No amLODIPine Besylate 5 Besylate 5 Besylate 5 MG MG MG Meloxicam Meloxicam No 1{table Meloxicam 15 MG 15 MG t} 15 MG Savella 50 Savella 50 No 1{table BID Savella 50 MG MG t} MG Levothyroxi Levothyroxi No Levothyrox ne Sodium ne Sodium ine Sodium 100 MCG 100 MCG 100 MCG Omeprazole Omeprazole No Omeprazole 40 MG 40 MG 40 MG Linzess Linzess No Linzess tiZANidine tiZANidine No 1{table QD tiZANidine HCl 4 MG HCl 4 MG t_as_ne HCl 4 MG eded} Vitamin D3 Vitamin D3 No Vitamin D3 1.25 MG 1.25 MG 1.25 MG (48022 UT) (41187 UT) (36849 UT) DULoxetine DULoxetine No DULoxetine HCl 60 MG HCl 60 MG HCl 60 MG Sucralfate Sucralfate No 1{table BID Sucralfate 1 GM 1 GM t_on_an 1 GM _empty_ stomach } Montelukast Montelukast No Montelukas Sodium 10 Sodium 10 t Sodium MG MG 10 MG Lidocaine 5 Lidocaine 5 No Lidocaine % % 5 % Omeprazole Omeprazole No QD Omeprazole 40 MG 40 MG 40 MG Levothyroxi Levothyroxi No Levothyrox ne Sodium ne Sodium ine Sodium 112 MCG 112 MCG 112 MCG Levothyroxi Levothyroxi No QD Levothyrox ne Sodium ne Sodium ine Sodium 112 MCG 112 MCG 112 MCG Rosuvastati Rosuvastati No Rosuvastat n Calcium n Calcium in Calcium 20 MG 20 MG 20 MG Dicyclomine Dicyclomine No 1{capsu BID Dicyclomin HCl 10 MG HCl 10 MG les} e HCl 10 MG valACYclovi valACYclovi No 1{table TID valACYclov r HCl 1 GM r HCl 1 GM t} ir HCl 1 GM Levothyroxi Levothyroxi No QD Levothyrox ne Sodium ne Sodium ine Sodium 88 MCG 88 MCG 88 MCG Centrum Centrum No Centrum traMADol traMADol No 1{table BID traMADol HCl 50 MG HCl 50 MG t_as_ne HCl 50 MG eded} amLODIPine amLODIPine No amLODIPine Besylate 5 Besylate 5 Besylate 5 MG MG MG DULoxetine DULoxetine No 1{capsu QD DULoxetine HCl 60 MG HCl 60 MG le} HCl 60 MG tiZANidine tiZANidine No 1{table QD tiZANidine HCl 4 MG HCl 4 MG t_as_ne HCl 4 MG eded} Crestor 20 Crestor 20 No 1{table QD Crestor 20 MG MG t} MG Motegrity Motegrity No Motegrity Savella 50 Savella 50 No 1{table BID Savella 50 MG MG t} MG Crestor 20 Crestor 20 No Crestor 20 MG MG MG Meloxicam Meloxicam No 1{table Meloxicam 15 MG 15 MG t} 15 MG Lidocaine 5 Lidocaine 5 No 1{appli TID Lidocaine % % cation_ 5 % as_need ed} Omeprazole Omeprazole No QD Omeprazole 40 MG 40 MG 40 MG Omeprazole Omeprazole No Omeprazole 40 MG 40 MG 40 MG Rosuvastati Rosuvastati No Rosuvastat n Calcium n Calcium in Calcium 20 MG 20 MG 20 MG Levothyroxi Levothyroxi No QD Levothyrox ne Sodium ne Sodium ine Sodium 88 MCG 88 MCG 88 MCG Levothyroxi Levothyroxi No Levothyrox ne Sodium ne Sodium ine Sodium 100 MCG 100 MCG 100 MCG Cimzia 2 X Cimzia 2 X No Cimzia 2 X 200 MG 200 MG 200 MG Linzess Linzess No Linzess Levothyroxi Levothyroxi No Levothyrox ne Sodium ne Sodium ine Sodium 112 MCG 112 MCG 112 MCG Lidocaine 5 Lidocaine 5 No Lidocaine % % 5 % Cetirizine Cetirizine No 1{table QD Cetirizine HCl 10 MG HCl 10 MG t} HCl 10 MG Dicyclomine Dicyclomine No 1{capsu BID Dicyclomin HCl 10 MG HCl 10 MG les} e HCl 10 MG Sucralfate Sucralfate No 1{table BID Sucralfate 1 GM 1 GM t_on_an 1 GM _empty_ stomach } DULoxetine DULoxetine No DULoxetine HCl 60 MG HCl 60 MG HCl 60 MG Vitamin D3 Vitamin D3 No Vitamin D3 1.25 MG 1.25 MG 1.25 MG (94048 UT) (23854 UT) (47383 UT) Centrum Centrum No Centrum valACYclovi valACYclovi No 1{table TID valACYclov r HCl 1 GM r HCl 1 GM t} ir HCl 1 GM traMADol traMADol No 1{table BID traMADol HCl 50 MG HCl 50 MG t_as_ne HCl 50 MG eded} Montelukast Montelukast No Montelukas Sodium 10 Sodium 10 t Sodium MG MG 10 MG DULoxetine DULoxetine No DULoxetine HCl 60 MG HCl 60 MG HCl 60 MG Lidocaine 5 Lidocaine 5 No Lidocaine % % 5 % Humira Humira No Humira Pennsaid 2 Pennsaid 2 No BID Pennsaid 2 % % % Sucralfate Sucralfate No 1{table BID Sucralfate 1 GM 1 GM t_on_an 1 GM _empty_ stomach } amLODIPine amLODIPine No 1{table QD amLODIPine Besylate 5 Besylate 5 t} Besylate 5 MG MG MG Levothyroxi Levothyroxi No Levothyrox ne Sodium ne Sodium ine Sodium 100 MCG 100 MCG 100 MCG Levothyroxi Levothyroxi No Levothyrox ne Sodium ne Sodium ine Sodium 112 MCG 112 MCG 112 MCG Crestor 20 Crestor 20 No 1{table QD Crestor 20 MG MG t} MG Motegrity Motegrity No Motegrity Lidocaine 5 Lidocaine 5 No 1{appli TID Lidocaine % % cation_ 5 % as_need ed} Levothyroxi Levothyroxi No QD Levothyrox ne Sodium ne Sodium ine Sodium 112 MCG 112 MCG 112 MCG Rosuvastati Rosuvastati No Rosuvastat n Calcium n Calcium in Calcium 20 MG 20 MG 20 MG Centrum Centrum No Centrum Cetirizine Cetirizine No 1{table QD Cetirizine HCl 10 MG HCl 10 MG t} HCl 10 MG tiZANidine tiZANidine No 1{table QD tiZANidine HCl 4 MG HCl 4 MG t_as_ne HCl 4 MG eded} Montelukast Montelukast No Montelukas Sodium 10 Sodium 10 t Sodium MG MG 10 MG Omeprazole Omeprazole No Omeprazole 40 MG 40 MG 40 MG traMADol traMADol No 1{table BID traMADol HCl 50 MG HCl 50 MG t_as_ne HCl 50 MG eded} Vitamin D3 Vitamin D3 No Vitamin D3 1.25 MG 1.25 MG 1.25 MG (33036 UT) (47886 UT) (39880 UT) valACYclovi valACYclovi No 1{table TID valACYclov r HCl 1 GM r HCl 1 GM t} ir HCl 1 GM DULoxetine DULoxetine No 1{capsu QD DULoxetine HCl 60 MG HCl 60 MG le} HCl 60 MG Montelukast Montelukast No 1{table QD Montelukas Sodium 10 Sodium 10 t} t Sodium MG MG 10 MG Linzess Linzess No Linzess Meloxicam Meloxicam No 1{table Meloxicam 15 MG 15 MG t} 15 MG Crestor 20 Crestor 20 No Crestor 20 MG MG MG Levothyroxi Levothyroxi No QD Levothyrox ne Sodium ne Sodium ine Sodium 88 MCG 88 MCG 88 MCG Omeprazole Omeprazole No QD Omeprazole 40 MG 40 MG 40 MG amLODIPine amLODIPine No amLODIPine Besylate 5 Besylate 5 Besylate 5 MG MG MG Dicyclomine Dicyclomine No 1{capsu BID Dicyclomin HCl 10 MG HCl 10 MG les} e HCl 10 MG DULoxetine DULoxetine No DULoxetine HCl 60 MG HCl 60 MG HCl 60 MG Lidocaine 5 Lidocaine 5 No Lidocaine % % 5 % Humira Humira No Humira Pennsaid 2 Pennsaid 2 No BID Pennsaid 2 % % % Sucralfate Sucralfate No 1{table BID Sucralfate 1 GM 1 GM t_on_an 1 GM _empty_ stomach } amLODIPine amLODIPine No 1{table QD amLODIPine Besylate 5 Besylate 5 t} Besylate 5 MG MG MG Levothyroxi Levothyroxi No Levothyrox ne Sodium ne Sodium ine Sodium 100 MCG 100 MCG 100 MCG Levothyroxi Levothyroxi No Levothyrox ne Sodium ne Sodium ine Sodium 112 MCG 112 MCG 112 MCG Crestor 20 Crestor 20 No 1{table QD Crestor 20 MG MG t} MG Motegrity Motegrity No Motegrity Lidocaine 5 Lidocaine 5 No 1{appli TID Lidocaine % % cation_ 5 % as_need ed} Levothyroxi Levothyroxi No QD Levothyrox ne Sodium ne Sodium ine Sodium 112 MCG 112 MCG 112 MCG Rosuvastati Rosuvastati No Rosuvastat n Calcium n Calcium in Calcium 20 MG 20 MG 20 MG Centrum Centrum No Centrum Cetirizine Cetirizine No 1{table QD Cetirizine HCl 10 MG HCl 10 MG t} HCl 10 MG tiZANidine tiZANidine No 1{table QD tiZANidine HCl 4 MG HCl 4 MG t_as_ne HCl 4 MG eded} Montelukast Montelukast No Montelukas Sodium 10 Sodium 10 t Sodium MG MG 10 MG Omeprazole Omeprazole No Omeprazole 40 MG 40 MG 40 MG traMADol traMADol No 1{table BID traMADol HCl 50 MG HCl 50 MG t_as_ne HCl 50 MG eded} Vitamin D3 Vitamin D3 No Vitamin D3 1.25 MG 1.25 MG 1.25 MG (06218 UT) (84314 UT) (53610 UT) valACYclovi valACYclovi No 1{table TID valACYclov r HCl 1 GM r HCl 1 GM t} ir HCl 1 GM DULoxetine DULoxetine No 1{capsu QD DULoxetine HCl 60 MG HCl 60 MG le} HCl 60 MG Montelukast Montelukast No 1{table QD Montelukas Sodium 10 Sodium 10 t} t Sodium MG MG 10 MG Linzess Linzess No Linzess Meloxicam Meloxicam No 1{table Meloxicam 15 MG 15 MG t} 15 MG Crestor 20 Crestor 20 No Crestor 20 MG MG MG Levothyroxi Levothyroxi No QD Levothyrox ne Sodium ne Sodium ine Sodium 88 MCG 88 MCG 88 MCG Omeprazole Omeprazole No QD Omeprazole 40 MG 40 MG 40 MG amLODIPine amLODIPine No amLODIPine Besylate 5 Besylate 5 Besylate 5 MG MG MG Dicyclomine Dicyclomine No 1{capsu BID Dicyclomin HCl 10 MG HCl 10 MG les} e HCl 10 MG Immunizations Ordered Immunization Filled Immunization Date Status Commen ts Source Name Name FluAD FluAD 2021-04-15 Completed [facility] 10:38:00 - [facility] Flu[facility] 2021-04-15 Completed [facility] 10:38:00 - [facility] Flu[facility] 2021-04-15 Com[facility] 10:38:00 - [facility] FluAD FluAD 2021-04-15 [facility] 10:38:[facility] - [facility] FluAD FluAD 2021-04-15 [facility]pleted [facility] 10:38:00 - [facility] FluAD FluAD 2021-04-15 [facility]pleted [facility] 10:38:00 - [facility] FluAD FluAD 2021-04-15 [facility]pleted [facility] 10:38:00 - [facility] FluAD FluAD 2021-04-15 [facility]pleted [facility] 10:38:00 - [facility] FluAD FluAD 2021-04-15 Completed [facility] 10:38:00 - [facility] FluAD FluAD 2021-04-15 [facility]pleted [facility] 10:38:00 - [facility] FluAD FluAD 2021-04-15 Completed [facility] 10:38:00 - [facility] FluAD FluAD 2021-04-15 Completed [facility] 10:38:00 - [facility] FluAD FluAD 2021-04-15 [facility]pleted [facility] 10:38:00 - [facility] FluAD FluAD 2021-04-15 Completed [facility] 10:38:00 - [facility] Bupivicaine [place] Bupivicaine [place] 2020-12-13 [facility]pleted [facility] 08:56:00 - [facility] Kenalog Kenalog 2020-12-13 Completed [facility] (Triamcinolone) (Triamcinolone) 08:55:00 - [facility] COVID-19 Vaccine COVID-19 Vaccine 2020-09-12 [facility]pleted [facility] (Sathish) (Sathish) 14:59:00 - [facility] COVID-19 Vaccine COVID-19 Vaccine 2020-09-12 Completed [facility] (Sathish) (Sathish) 14:59:00 - [facility] COVID-19 Vaccine COVID-19 Vaccine 2020-09-12 Completed [facility] (Sathish) (Sathish) 14:59:00 - [facility] COVID-19 Vaccine COVID-19 Vaccine 2020-09-12 Completed [facility] (Sathish) (Sathish) 14:59:00 - [facility] COVID-19 Vaccine COVID-19 Vaccine 2020-09-12 Completed [facility] (Sathish) (Sathish) 14:59:00 - [facility] COVID-19 Vaccine COVID-19 Vaccine 2020-09-12 Completed [facility] (Sathish) (Sathish) 14:59:00 - [facility] COVID-19 Vaccine COVID-19 Vaccine 2020-09-12 Completed [facility] (Sathish) (Sathish) 14:59:00 - [facility] COVID-19 Vaccine COVID-19 Vaccine 2020-09-12 Completed [facility] (Sathish) (Sathish) 14:59:00 - [facility] COVID-19 Vaccine COVID-19 Vaccine 2020-09-12 Completed [facility] (Sathish) (Sathish) 14:59:00 - [facility] COVID-19 Vaccine COVID-19 Vaccine 2020-09-12 Completed [facility] (Sathish) (Sathish) 14:59:00 - [facility] COVID-19 Vaccine COVID-19 Vaccine 2020-09-12 Completed [facility] (Sathish) (Sathish) 14:59:00 - [facility] COVID-19 Vaccine COVID-19 Vaccine 2020-09-12 Completed [facility] (Sathish) (Sathish) 14:59:00 - [facility] COVID-19 Vaccine COVID-19 Vaccine 2020-09-12 Completed [facility] (Sathish) (Sathish) 14:59:00 - [facility] COVID-19 Vaccine COVID-19 Vaccine 2020-09-12 Completed [facility] (Sathish) (Sathish) 14:59:00 - [facility] COVID-19 Vaccine COVID-19 Vaccine 2020-09-12 Completed [facility] (Sathish) (Sathish) 14:59:00 - [facility] COVID-19 Vaccine COVID-19 Vaccine 2020-09-12 Completed [facility] (Sathish) (Sathish) 14:59:00 - [facility] COVID-19 Vaccine COVID-19 Vaccine 2020-09-12 Completed [facility] (Sathish) (Sathish) 14:59:00 - [facility] FluAD FluAD 2020-04-01 [facility] 09:28:00 - [facility] FluAD FluAD 2020-04-01 [facility] 09:28:00 - [facility] FluAD FluAD 2020-04-01 [facility]pleted [facility] 09:28:00 - [facility] FluAD FluAD 2020-04-01 [facility]pleted [facility] 09:28:00 - [facility] FluAD FluAD 2020-04-01 Completed [facility] 09:28:00 - [facility] FluAD FluAD 2020-04-01 [facility]pleted [facility] 09:28:00 - [facility] FluAD FluAD 2020-04-01 Completed [facility] 09:28:00 - [facility] FluAD FluAD 2020-04-01 Completed [facility] 09:28:00 - [facility] FluAD FluAD 2020-04-01 Completed [facility] 09:28:00 - [facility] FluAD FluAD 2020-04-01 [facility]pleted [facility] 09:28:00 - [facility] FluAD FluAD 2020-04-01 Completed [facility] 09:28:00 - [facility] FluAD FluAD 2020-04-01 Completed [facility] 09:28:00 - [facility] FluAD FluAD 2020-04-01 [facility]pleted [facility] 09:28:00 - [facility] FluAD FluAD 2020-04-01 Completed [facility] 09:28:00 - [facility] FluAD FluAD 2020-04-01 Completed [facility] 09:28:00 - [facility] FluAD FluAD 2020-04-01 Completed [facility] 09:28:00 - [facility] FluAD FluAD 2020-04-01 Completed [facility] 09::00 - [facility] FluAD FluAD 2020-04-01 Completed [facility] 09:: - [facility] Vital Signs Vital Name Observation Time Observation Value Comments Source HEIGHT 2020-06-08 16:24:00 157.5 cm WEIGHT 2020-06-08 16:24:00 65.772 kg HEIGHT 2020-06-08 04:00:00 157.5 cm WEIGHT 2020-06-08 04:00:00 65.772 kg height 2022-01-17 13:20:00 61 [in_i] [facility] weight 2022-01-17 13:20:00 166.8 [lb_av] [facility] temperature 2022-01-17 13:20:00 98.1 [degF] [facility] bmi 2022-01-17 13:20:00 31.51 kg/m2 [facility] oximetry 2022-01-17 13:20:00 97 % [facility] respiratory rate 2022-01-17 13:20:00 17 /min Comm on [facility] blood pressure 2022-01-17 13:20:00 126 mm[Hg] [facility] - systolic [facility] blood pressure 2022-01-17 13:20:00 70 mm[Hg] [facility] height 2022-01-17 13:40:00 61 [in_i] [facility] weight 2022-01-17 13:40:00 166.8 [lb_av] Common [facility] temperature 2022-01-17 13:40:00 98.1 [degF] [facility] bmi 2022-01-17 13:40:00 31.51 kg/m2 [facility] oximetry 2022-01-17 13:40:00 97 % [facility] respiratory rate 2022-01-17 13:40:00 17 /min Comm on [facility] blood pressure 2022-01-17 13:40:00 126 mm[Hg] [facility] - systolic [facility] blood pressure 2022-01-17 13:40:00 70 mm[Hg] [facility] - diastolic [facility] height 2021-10-17 10:40:00 61 [in_i] [facility] weight 2021-10-17 10:40:00 173.5 [lb_av] [facility] temperature 2021-10-17 10:40:00 97.5 [degF] [facility] bmi 2021-10-17 10:40:00 32.78 kg/m2 [facility] oximetry 2021-10-17 10:40:00 97 % [facility] respiratory rate 2021-10-17 10:40:00 17 /min Comm on [facility] blood pressure 2021-10-17 10:40:00 129 mm[Hg] [facility] - [facility] blood pressure 2021-10-17 10:40:00 69 mm[Hg] [facility] - diastolic [facility] height 2021-10-04 10:10:00 61 [in_i] [facility] weight 2021-10-04 10:10:00 171.8 [lb_av] [facility] temperature 2021-10-04 10:10:00 97.1 [degF] [facility] bmi 2021-10-04 10:10:00 32.46 kg/m2 [facility] oximetry 2021-10-04 10:10:00 96 % [facility] respiratory rate 2021-10-04 10:10:00 17 /min Comm on [facility] blood pressure 2021-10-04 10:10:00 132 mm[Hg] [facility] - systolic [facility] blood pressure 2021-10-04 10:10:00 76 mm[Hg] [facility] - [facility] height 2021-07-13 08:20:00 61 [in_i] [facility] weight 2021-07-13 08:20:00 165 [lb_av] [facility] temperature 2021-07-13 08:20:00 95 [degF] [facility] bmi 2021-07-13 08:20:00 31.17 kg/m2 [facility] blood pressure 2021-07-13 08:20:00 130 mm[Hg] [facility] - systolic [facility] blood pressure 2021-07-13 08:20:00 76 mm[Hg] [facility] - diastolic [facility] height 2021-06-09 13:30:00 61 [in_i] [facility] weight 2021-06-09 13:30:00 168 [lb_av] [facility] temperature 2021-06-09 13:30:00 99.1 [degF] [facility] bmi 2021-06-09 13:30:00 31.74 kg/m2 [facility] blood pressure 2021-06-09 13:30:00 132 mm[Hg] [facility] - [facility] blood pressure 2021-06-09 13:30:00 84 mm[Hg] [facility] - diastolic [facility] height 2021-04-14 10:30:00 61 [in_i] [facility] weight 2021-04-14 10:30:00 167 [lb_av] [facility] temperature 2021-04-14 10:30:00 98.3 [degF] [facility] bmi 2021-04-14 10:30:00 31.55 kg/m2 [facility] blood pressure 2021-04-14 10:30:00 135 mm[Hg] [facility] - systolic [facility] blood pressure 2021-04-14 10:30:00 85 mm[Hg] [facility] - diastolic [facility] height 2021-04-01 15:00:00 61 [in_i] [facility] weight 2021-04-01 15:00:00 170.6 [lb_av] [facility] temperature 2021-04-01 15:00:00 97.0 [degF] [facility] bmi 2021-04-01 15:00:00 32.23 kg/m2 [facility] oximetry 2021-04-01 15:00:00 95 % [facility] respiratory rate 2021-04-01 15:00:00 18 /min Comm on [facility] blood pressure 2021-04-01 15:00:00 120 mm[Hg] [facility] - systolic [facility] blood pressure 2021-04-01 15:00:00 70 mm[Hg] [facility] - [facility] height 2021-02-21 09:00:00 61 [in_i] [facility] weight 2021-02-21 09:00:00 171 [lb_av] [facility] temperature 2021-02-21 09:00:00 97.3 [degF] [facility] bmi 2021-02-21 09:00:00 32.31 kg/m2 [facility] - [facility] blood pressure 2021-02-21 09:00:00 132 mm[Hg] [facility] - systolic [facility] blood pressure 2021-02-21 09:00:00 84 mm[Hg] [facility] - [facility] HEIGHT 2020-06-08 16:24:00 157.5 cm WEIGHT 2020-06-08 16:24:00 65.772 kg HEIGHT 2020-06-08 04:00:00 157.5 cm WEIGHT 2020-06-08 04:00:00 65.772 kg Procedures Procedure Date / Time Performed Performing Clinician Sourc e US ABDOMEN COMPLETE 2022-03-11 15:45:12 Flavio Howell [facility] ASSIGNMENT OF BENEFITS 2022-03-11 14:23:47 Doctor Unassigned, No [facility] Plan of Care Planned Activity Planned Date Details Comments Source Future Scheduled 2022-02-02 HEPATITIS B VACCINES Met [facility] Test 22:11:13 (1 of 3 - 3-dose series) [code = HEPATITIS B VACCINES (1 of 3 - 3-dose series)] Future Scheduled 2022-02-02 COVID-19 VACCINE (#1) [facility] Test 22:11:13 [code = COVID-19 VACCINE (#1)] Future Scheduled 2022-02-02 BREAST CANCER [facility] Test 22:11:13 SCREENING [code = BREAST CANCER SCREENING] Future Scheduled 2022-02-02 COLONOSCOPY SCREENING [facility] Test 22:11:13 [code = COLONOSCOPY SCREENING] Future Scheduled 2022-02-02 SHINGLES VACCINES (1 Met [facility] Test 22:11:13 of 2) [code = SHINGLES VACCINES (1 of 2)] Future Scheduled 2022-02-02 65+ [facility] 22:11:13 VACCINE (1 - PCV) [code = 65+ PNEUMOCOCCAL VACCINE (1 - PCV)] Future Scheduled 2022-02-02 INFLUENZA VACCINE Method [facility] Test 22:11:13 [code = INFLUENZA VACCINE] Future Scheduled 2022-02-02 INFLUENZA VACCINE (#1) C [facility] Test 00:00:00 [code = INFLUENZA Medical Ce nter VACCINE (#1)] Future Scheduled 2021-06-[address] [facility] Test 00:00:00 (12+) [code = Medical Center DEPRESSION SCREENING (12+)] Future Scheduled 2021-06-04 FALLS RISK SCREENING [facility] Test 00:00:00 [code = FALLS RISK Medical C enter SCREENING] Future Scheduled 2020-11-07 COVID-19 VACCINE (2 [facility] Test 00:00:00 Booster for Sathish [facility] Center series) [code = COVID-19 VACCINE (2 - Booster for Sathish series)] Future Scheduled 2012-07-[address] [facility] Test 00:00:00 WELLNESS (YEAR 2 or Medical Center FIRST YEAR if no IPPE) [code = MEDICARE ANNUAL WELLNESS (YEAR 2 or FIRST YEAR if no IPPE)] Future Scheduled 2004 SHINGLES VACCINES ([address] [facility] Test 00:00:00 of 2) [code = SHINGLES Medic al Center VACCINES (1 of 2)] Future Scheduled 1973 DTAP/TDAP/TD VACCINES [facility] Test 00:00:00 (1 - Tdap) [code = Medical C enter DTAP/TDAP/TD VACCINES (1 - Tdap)] Future Scheduled 1972 HEPATITIS C [facility]CRE[facility]ING [facility] Test 00:00:00 [code = HEPATITIS C Medical Center SCREENING] Future Scheduled 1960 PNEUMOCOCCAL 65+ YRS [facility] Test 00:00:00 (1 - PCV) [code = Medical Ce nter PNEUMOCOCCAL 65+ YRS (1 - PCV)] Future Scheduled [address] [facility] Test 00:00:00 malignant neoplasm of Medica l Center breast (procedure) [code = 358703106] Future Scheduled [address] [facility] Test 00:00:00 (combo) [code = CT Medical C enter Colonography (combo)] Future Scheduled [address] [facility] Test 00:00:00 malignant neoplasm of [facility] colon (procedure) [code = 321408982] Future Scheduled [address] [facility] Test 00:00:00 malignant neoplasm of [facility] Center colon (procedure) [code = 794290334] Future Scheduled 1954 DXA SCAN [code = DXA [facility] Test 00:00:00 SCAN] [facility] Future Scheduled [address] [facility] [facility] Test 00:00:00 [facility] colon (procedure) [code = 323071097] Future Scheduled [address] [facility] [facility] Test 00:00:00 malignant [facility] colon (procedure) [code = 758586027] Future Scheduled 1954 Sigmoidoscopy [code = [facility] Test 00:00:00 Sigmoidoscopy] Medical Cente r Encounters Start End Encounter Admission Attending Care Care Encounter Source Date/Time Date/Time Type Type Clinicians Facility Department ID 2021-10-04 Outpatient Tobin, STLMLC STLC [id number] Common 09:56:02 Matias [facility] 2021-08-26 Outpatient Tobin, STLMLC STLC [id number] Common 09:47:01 Matias [facility] 2021-06-29 Outpatient Tobin, STLMLC STLC [id number] Common 13:59:44 Matias [address] [facility] 2021-06-29 Outpatient Tobin, STLMLC STLC [id number] Common 13:37:16 Matias [address] [facility] 2021-06-29 Outpatient Tobin, STLMLC STLC [id number] Common 13:24:25 Matias [address]8432 [facility] 2021-06-29 Outpatient Tobin, STLMLC STLC [id number] Common 13:22:22 Matias [address] [facility] 2021-06-29 Outpatient Tobin, STLMLC STLMLC [id number] Common 13:02:26 Matias [address] [facility] 2021-06-29 Outpatient Tobin, STLMLC STLC [id number] Common 12:53:52 Maitas [address]242 [facility] 2021-06-29 Outpatient Tobin, STLMLC STLC [id number] Common 12:26:48 Matias 15209 [facility] 2021-06-29 [facility] [id number] Common 12:24:45 Matias 09925 [facility] 2021-06-29 Out[facility], [facility] [id number] Common 11:17:20 Matias 19051 [facility] 2021-06-29 Out[facility], [facility] [id number] Common 11:16:31 Matias 12654 [facility] 2020-06-08 Inpatient UR DELORIS PÉREZ [facility] Urology [id number] [facility] 03:39:00 DENA MORA 2022-03-16 2022-03-16 Outpatient R RASHARDUNM [facility] RAD [id number] Univers 11:52:43 23:59:00 GWENDOLYN ity [facility] 2022-03-16 2022-03-16 [facility] [id number] Univers 11:52:43 23:59:00 Encounter Gwendolyn CORONELAMISH [id number] ity of [place] [id number] [facility] [id number] [facility] [address] 2022-03-11 2022-03-11 [facility] [id number] Univers 09:26:55 23:59:00 Encounter John BASSETT [id number] ity of [place] [id number] [facility] [id number] [facility] [address] 2022-03-11 2022-03-[address] [facility] [id number] Univers 09:26:55 23:59:00 ity of [facility] 2022-03-11 2022-03-11 Orders Doctor DOWNING [id number] Univers 00:00:00 00:00:00 Only Unassigned, LEONA [id number] ity of [place] [facility] [id number] Ricardo [id number] [place] [address] [address] 2022-01-17 2022-01-17 OFFICE STLMLC STLMLC [id number] Co mmon 00:00:00 00:00:00 VISIT Spirit ESTAB PT - CHI LEVEL 4 [facility] 2022-01-17 2022-01-17 SUB ANNUAL STLMLC STLMLC [id number] Common 00:00:00 00:00:00 MCR [facility] WELLNESS - CHI VISIT [facility] 2022-01-10 2022-01-10 (TEL) STLMLC STLMLC [id number] Co mmon 00:00:00 00:00:00 [facility] - [facility] 2021-10-17 2021-10-17 OFFICE STLMLC STLMLC [id number] Co mmon 00:00:00 00:00:00 VISIT Spirit ESTAB PT - CHI LEVEL 4 [facility] 2021-10-04 2021-10-04 OFFICE STLMLC STLMLC [id number] Co mmon 00:00:00 00:00:00 VISIT EST Spir it PT LEVEL 3 - [facility] 2021-10-03 2021-10-03 (TEL) STLMLC STLMLC [id number] Co mmon 00:00:00 00:00:00 [facility] - [facility] 2021-07-14 2021-07-14 (TEL) STLMLC STLMLC [id number] Co mmon 00:00:00 00:00:00 [facility] - [facility] 2021-07-13 2021-07-13 OFFICE STLMLC STLMLC [id number] Co mmon 00:00:00 00:00:00 VISIT Spirit ESTAB PT - CHI LEVEL 4 [facility] 2021-07-04 2021-07-04 (TEL) STLMLC STLMLC [id number] Co mmon 00:00:00 00:00:00 [facility] - [facility] 2021-06-09 2021-06-09 OFFICE STLMLC STLMLC [id number] Co mmon 00:00:00 00:00:00 VISIT [facility] ESTAB PT - CHI LEVEL 4 [facility] 2021-05-17 2021-05-17 (TEL) STLMLC STLMLC [id number] Co mmon 00:00:00 00:00:00 [facility] 2021-05-13 2021-05-13 (TEL) STLMLC STLMLC [id number] Co mmon 00:00:00 00:00:00 [facility] 2021-04-15 2021-04-15 (INJ) STLMLC STLMLC [id number] Co mmon 00:00:00 00:00:00 Injection Spir it - [facility] 2021-04-14 2021-04-14 OFFICE STLMLC STLMLC [id number] Co mmon 00:00:00 00:00:00 VISIT [facility] ESTAB PT - CHI LEVEL 4 [facility] 2021-04-14 2021-04-14 (TEL) STLMLC STLMLC [id number] Co mmon 00:00:00 00:00:00 [facility] 2021-04-06 2021-04-06 (TEL) STLMLC STLMLC [id number] Co mmon 00:00:00 00:00:00 [facility] 2021-04-01 2021-04-01 OFFICE STLMLC STLMLC [id number] Co mmon 00:00:00 00:00:00 VISIT EST Spir it PT LEVEL 3 - [facility] 2021-02-21 2021-02-21 OFFICE STLMLC STLMLC [id number] Co mmon 00:00:00 00:00:00 VISIT [facility] ESTAB PT - CHI LEVEL 4 [facility] 2021-01-13 2021-01-13 Outpatient STLMLC STLMLC [id number] Common 00:00:00 00:00:00 [facility] 2021-01-13 2021-01-13 Outpatient STLMLC STLMLC [id number] Common 00:00:00 00:00:00 [facility] 2020-12-29 2020-12-29 Outpatient STLMLC STLMLC [id number] Common 00:00:00 00:00:00 [facility] 2020-12-29 2020-12-29 Outpatient STLMLC STLMLC [id number] Common 00:00:00 00:00:00 [facility] 2020-12-13 2020-12-13 Outpatient STLMLC STLMLC [id number] Common 00:00:00 00:00:00 [facility] 2020-12-02 2020-12-02 Outpatient STLMLC STLMLC [id number] Common 00:00:00 00:00:00 [facility] 2020-12-02 2020-12-02 Outpatient STLMLC STLMLC [id number] Common 00:00:00 00:00:00 [facility] 2020-10-28 2020-10-28 Outpatient STLMLC STLMLC [id number] Common 00:00:00 00:00:00 [facility] 2020-10-26 2020-10-26 Outpatient STLMLC STLMLC [id number] Common 00:00:00 00:00:00 [facility] 2020-10-13 2020-10-13 Outpatient STLMLC STLMLC [id number] Common 00:00:00 00:00:00 [facility] 2020-09-23 2020-09-23 Outpatient STLMLC STLMLC [id number] Common 00:00:00 00:00:00 [facility] 2020-07-28 2020-07-28 Outpatient STLMLC STLMLC [id number] Common 00:00:00 00:00:00 [facility] 2020-07-12 2020-07-12 Outpatient STLMLC STLMLC [id number] Common 00:00:00 00:00:00 [facility] 2020-07-02 2020-07-02 Outpatient STLMLC STLMLC [id number] Common 00:00:00 00:00:00 [facility] 2020-06-28 2020-06-28 Outpatient STLMLC STLMLC [id number] Common 00:00:00 00:00:00 [facility] 2020-06-17 2020-06-17 Outpatient STLMLC STLMLC [id number] Common 00:00:00 00:00:00 [facility] 2020-06-10 2020-06-10 Outpatient STLMLC STLMLC [id number] Common 00:00:00 00:00:00 [facility] 2020-04-08 2020-04-08 Outpatient STLMLC STLMLC [id number] Common 00:00:00 00:00:00 [facility] 2020-04-01 2020-04-01 Outpatient STLMLC STLMLC [id number] Common 00:00:00 00:00:00 [facility] 2020-03-23 2020-03-23 Outpatient STLMLC STLMLC [id number] Common 00:00:00 00:00:00 [facility] 2020-01-07 2020-01-07 [facility] [id number] Common 11:00:00 11:00:[address] [place] [address] [facility] 2020-01-07 2020-01-07 [facility] [id number] Common 11:00:00 11:00:00 [place] [address] [facility] 2019-12-21 2019-12-21 Outpatient [facility] [id number] Common 20:23:00 20:23:00 [place] [address] [facility] 2019-11-17 2019-11-17 [facility]patient [facility] [id number] Common 07:33:00 07:33:00 [place] [address] [facility] 2019-11-12 2019-11-12 [facility] [id number] Common 13:00:00 13:00:00 [place] [address] [facility] 2019-11-02 2019-11-02 Outpatient [facility] [id number] Common 09:58:00 09:58:00 [address] [place] [address] [facility] 2019-10-06 2019-10-06 [facility] [id number] Common 15:59:00 15:59:00 [address] [place] [address] [facility] 2019-09-03 2019-09-03 [facility] [id number] Common 11:00:00 11:00:00 t [employer] Spir it [place] [facility] 2016-11-30 2016-11-30 Outpatient DENIZ GUAMAN [id number] [facility]oria 11:00:00 11:00:00 01 l [facility] 2015-03-18 2015-03-18 Outpatient DENIZ GUAMAN [id number] [facility] 11:00:00 11:00:00 00 l [facility] Results Test Description Test Time Test Comments Results Result Comments Source BLOOD CULTURE 2020-06-13 16:01:00 Test Item Value Reference Range Interpretation Comme nts CULTURE (BEAKER) (test code = 1095) No growth in 5 days BLOOD [id number] 16:00:00 Test Item Value Reference Range Interpretation Comments CULTURE (BEAKER) (test No growth in 5 days code = 1095) URINE [id number] 11:13:00 Test Item Value Reference Range Interpretation Comments CULTURE (BEAKER) (test code = 1095) No growth BASIC METABOLIC [id number] 05:33:00 Test Item Value Reference Range Interpretation [...] S NOT APPLICABLE FOR DIALYSIS PATIEN TS. Service Desk Director ID - [id number] W/PLT COUNT & AUTO [id number] 05:10:00 Test Item Value Reference Range Interpretation [...] = 2801) CBC W/PLT COUNT & AUTO [id number] 07:13:00 Test Item Value Reference Range Interpretation [...] (BEAKER) (test code = 2801) BASIC METABOLIC [id number] 06:48:00 Test Item Value Reference Range Interpretation [...] S NOT APPLICABLE FOR DIALYSIS PATIEN TS. Service Desk Director ID - [id number] W/ REFLEX URINE [id number] 04:06:00 Test Item Value Reference Range Interpretation [...] = 516) SOURCE(BEAKER) (test code = 2795) Service Desk Director ID - [auto]Service Desk Director ID - techFL, FLUORO, NON-SPECIFIC, UP TO 1 HOUR 2020-06-08 18:20:00Reason for exam:->cysto [facility] : 1955 Sex: FFluoroscopic unit utilized for a procedure performed in the OR. No interpretation was requested. Refer to the operative report for findings. Refer to PACS for patient radiation dose information.LACTIC ACID, [id number] 11:35:00 Test Item Value Reference Range Interpretation Comments LACTATE BLOOD VENOUS (2) (BEAKER) 0.71 mmol/L 0.50-2.20 (test code = 2872) Service Desk Director ID - [id number] 11:31:00 Test Item Value Reference Range Interpretation Comments MAGNESIUM (BEAKER) (test code = 1.6 mg/dL 1.5-3.0 627) Service Desk Director ID - [id number] IF [id number] 06:23:00 Test Item Value Reference Range Interpretation Comments THYROID STIMULATING HORMONE 0.690 uIU/mL 0.350-5.500 (BEAKER) (test code = 772) Service Desk Director ID - [id number] METABOLIC [id number] 06:14:00 Test Item Value Reference Range Interpretation [...] S NOT APPLICABLE FOR DIALYSIS PATIEN TS. Service Desk Director ID - [id number] W/PLT COUNT & AUTO [id number] 05:32:00 Test Item Value Reference Range Interpretation [...] 0-0 H PERCENT (BEAKER) (test code = 2355)
[2022-03-24] MEDS ORDERED: MORPHINE 4 MG/ML SYR ONE (20:31)
[2022-03-24 21:03] LABS: Absolute Lymphocytes (CBC) 3.3 K/uL (0.7-4.9); Hematocrit 47.1 % (36.0-45.0); Lymphocytes % 29.5 % (15.3-44.8); MCV 89.1 fL (80-100); MPV 8.3 fL (7.6-11.3); RBC Red Blood Cell Count 5.29 M/uL (3.86-4.86)
[2022-03-24 21:11] LABS: Potassium 3.9 mmol/L (3.5-5.1)
[2022-03-24] MEDS ORDERED: FENTANYL CITR 100 MCG/2 ML ONE (21:34)
[2022-03-24] MEDS ORDERED: CEFAZOLIN SODIUM 1 GM/VIAL ONE (21:35)
--- NOTE | 2022-03-24 22:03 | RAD REPORT ---
EXAM DESCRIPTION: RAD - Shoulder Left 2 View - 03/24/2022 9:53 pm CLINICAL HISTORY: PAIN COMPARISON: No comparisons TECHNIQUE: Internal and external rotation views of the left shoulder were obtained. FINDINGS: There is no fracture or dislocation. AC joint degenerative changes are present. Capsular h ypertrophy is seen with superiorly and inferiorly directed spurring. Acromial humeral joint space is narrowed. No abnormal soft tissue calcifications in the joint space. No pathologic changes. IMPRESSION: Left shoulder degenerative changes are present with no fracture or acute finding.
--- NOTE | 2022-03-24 22:05 | RAD REPORT ---
EXAM DESCRIPTION: RAD - Elbow Left 3 View - 03/24/2022 9:53 pm CLINICAL HISTORY: PAINfollowing fall COMPARISON: None. FINDINGS: Left elbow two-view examination was performed. Forearm is pronated and the AP projection i s limited. Radial head is fractured and partially dislocated. There is an oblique fracture through the proximal ulna without significant distraction. Approximately 20 degree angulation deformity is present. Distal humerus appears be intact. No periosteal reaction or pathologic bone process. No air or foreign body in the soft tissues. IMPRESSION: Left radial head fracture with partial dislocation. Proximal ulna fracture with 20 degree angulation deformity.
--- NOTE | 2022-03-24 22:06 | RAD REPORT ---
EXAM DESCRIPTION: RAD - Wrist Left 2 View - 03/24/2022 9:53 pm CLINICAL HISTORY: PAINfollowing fall COMPARISON: No comparisons FINDINGS: No fracture or dislocation at the wrist. No acute bone or joint finding identifiable. No f oreign body or significant soft tissue finding. Degenerative changes are present at trapezium first m etacarpal articulation. IMPRESSION: Negative left wrist for acute finding
--- NOTE | 2022-03-24 22:07 | RAD REPORT ---
EXAM DESCRIPTION: RAD - Hip Left 2 View - 03/24/2022 9:53 pm CLINICAL HISTORY: PAINafter fall COMPARISON: <Comparisons> FINDINGS: AP and frogleg views of the left hip were obtained. No fracture or dislocation identifiable. Spurring is seen along the superior acetabular rim. Imaged l eft hemipelvis is intact. No pathologic change. No soft tissue abnormality. IMPRESSION: Negative left hip examination for acute or significant findings.
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
[2022-03-24] MEDS ORDERED: HYDROMORPHONE HCL 1 MG/ML INJ ONE (23:06)
[2022-03-24 23:07] LABS: SARS-CoV-2 Antigen Rapid Res Negative (Negative)
[2022-03-25 01:44] VITALS: O2SAT 100
[2022-03-25 01:47] VITALS: BP 129/76; TEMP 98.6
== END 2022-03-25 01:14 | disposition short-term general hospital (02) ==
LOC: ER 20:13
PROC: 2W3BX1Z Immobilization of Left Upper Arm using Splint (ICD-10-PCS; principal; 2022-03-25)
DX: S52.102A Unspecified fracture of upper end of left radius, initial encounter for closed fracture (principal); M25.512 Pain in left shoulder; M25.552 Pain in left hip; W18.30XA Fall on same level, unspecified, initial encounter; Z20.822 Contact with and (suspected) exposure to COVID-19; F17.210 Nicotine dependence, cigarettes, uncomplicated; Z96.652 Presence of left artificial knee joint; Z88.6 Allergy status to analgesic agent; Z88.8 Allergy status to other drugs, medicaments and biological substances
CPT/HCPCS: 96365; 85025; 80048; 36415; 73502; 73080; 73030; 73100; 96375; 96372; 99285; 87811; 29105; J3010; J1170; J0690

== ENCOUNTER 2023-11-06 12:08 | Emergency (ER) | payer OTHER ==
[2023-11-06] MEDS ORDERED: CEFTRIAXONE 1000 MG/VIAL ONE (12:53)
[2023-11-06] MEDS ORDERED: NA CHLORIDE 0.9% 1,000 ML ONE (12:53)
--- NOTE | 2023-11-06 13:01 | RAD REPORT ---
EXAM DESCRIPTION: CT - Stone Protocol - 11/06/2023 12:39 pm CLINICAL HISTORY: Abdominal pain. Flank pain. Hematuria COMPARISON: 2020 TECHNIQUE: Computed axial tomography of the abdomen pelvis was obtained without oral or IV contrast. Lack of IV and oral contrast limits evaluation of solid organs, appendix, bowel, and vessels. Currie l reformatted images were obtained and reviewed. All CT scans are performed using dose optimization technique as appropriate and may include automated exposure control or mA/KV adjustment according to patient size. FINDINGS: A tiny left renal calculus. No right renal calculus. Vascular calcifications. An ureteral calculus is not noted. A bladder calculus is not present. No hydronephrosis. Cholecystectomy The liver, spleen, pancreas and adrenals appear grossly normal There is no evidence of diverticulitis. The appendix appears normal No adnexal mass. Small umbilical hernia. Spondylolysis L5-S1 results in central spinal stenosis IMPRESSION: Tiny nonobstructing left renal calculus
[2023-11-06 13:19] LABS: Absolute Eosinophils 0.1 K/uL (0-0.5); Absolute Lymphocytes (CBC) 1.4 K/uL (0.7-4.9); Absolute Monocytes 1.1 K/uL (0.1-1.3); Absolute Neutrophil 6.2 K/uL (1.8-8.0); Basophils % 0.5 % (0-1.3); Eosinophils % 0.7 % (0-4.4); Hematocrit 44.1 % (36.0-45.0); Hemoglobin 14.7 g/dL (12.0-15.0); Lymphocytes % 16.1 % (15.3-44.8); MCH 30.3 pg (27.0-35.0); MCHC 33.4 g/dL (32.0-36.0); MCV 90.8 fL (80-100); MPV 8.3 fL (7.6-11.3); Monocytes % 12.1 % (3.3-12.3); Neutrophils % 70.6 % (41.7-73.7); Platelets 282 thou/uL (152-406); RBC Red Blood Cell Count 4.86 M/uL (3.86-4.86); Red Cell Distribution Width 13.8 % (12.1-15.2)
[2023-11-06 13:20] LABS: PT Prothrombin Time 13.4 SECONDS (9.5-12.5); Protime INR 1.23
[2023-11-06 13:27] LABS: Specific Gravity 1.025 (1.005-1.030); Urine Bacteria <20 /HPF (<20); Urine Bilirubin 1+ (Negative); Urine Blood 2+ (Negative); Urine Clarity Extremely Turbid (Clear); Urine Color Yellow (Yellow); Urine Culture Reflex Order REFLEXED; Urine Glucose NEGATIVE (Negative); Urine Ketones TRACE (Negative); Urine Microscopic Reflex YN ORDER UMIC; Urine Mucus 2+ /HPF (None Seen); Urine Nitrite NEGATIVE (Negative); Urine Protein 2+ (Negative); Urine RBC 21-50 /HPF (None Seen); Urine Urobilinogen 1+ (Normal); Urine WBC >50 /HPF (<5)
[2023-11-06 13:36] LABS: ALT/SGPT 17 U/L (13-56); Albumin 3.5 g/dL (3.4-5.0); Albumin/Globulin Ratio 0.8 (1.1-1.8); Alkaline Phosphatase 74 U/L (45-117); Anion Gap 9.5 mEq/L (5.0-15.0); BUN Blood Urea Nitrogen 13 mg/dL (7-18); Bicarbonate 26 mEq/L (21-32); Bilirubin Direct 0.2 mg/dL (0-0.2); Bilirubin Indirect, Calculated 0.5 mg/dL (0.2-0.8); Bilirubin Total 0.7 mg/dL (0.2-1.0); Globulin 4.2 g/dL (2.3-3.5); Glomerular Filtration Rate 64 ml/min (=/>90); Glucose Level 109 mg/dL (74-106); Magnesium 2.2 mg/dL (1.6-2.4); NT PRO-BNP 280 pg/mL (<125); Potassium 3.5 mEq/L (3.5-5.1); Protein, Total 7.7 g/dL (6.4-8.2); Sodium Level 139 mEq/L (136-145); Troponin High Sensitivity 7.1 pg/mL (<58.9)
[2023-11-06 13:37] LABS: AST/SGOT < 10 U/L (15-37)
--- NOTE | 2023-11-06 14:26 | RAD REPORT ---
EXAM DESCRIPTION: Sergo Single View11/06/2023 2:01 pm CLINICAL HISTORY: cough COMPARISON: 2020 FINDINGS: The lungs appear clear of acute infiltrate. The heart is normal size IMPRESSION: No acute abnormalities displayed
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
[2023-11-06] MEDS ORDERED: SMZ./TMP. 800/160 MG TABLET ONE (16:54)
[2023-11-06] MEDS ORDERED: CEFDINIR 300 MG CAP PO ONE (16:54)
[2023-11-06 18:27] VITALS: BP 120/76; TEMP 98.2; O2SAT 100
--- NOTE | 2023-11-07 16:35 | EKG ---
Test Date: 2023-11-06 Test Time: 12:54:23 Analyst: DEBBIE MEASUREMENT RESULTS: Intervals: Rate: 84 [place]: 140 QRSD: 76 QT: 378 QTc: 446 [place]: P: OK: 140 QRS: 16 T: 65 INTERPRETIVE STATEMENTS: Normal sinus rhythm Normal ECG Compared to ECG 06/30/2020 14:21:01 Sinus arrhythmia no longer present Electronically Signed On 11-07-23 16:32:57 CDT by Sreedhar Walls
== END 2023-11-06 17:18 | disposition home or self-care (01) ==
LOC: ER 12:08
DX: N39.0 Urinary tract infection, site not specified (principal)
CPT/HCPCS: 93005; 87040 ×2; 87088; 85025; 81001; 87086; 80048; 36415; 83735; 85610; 80076; 83605; 87077; 87186; 84484; 83880; 76377; 74176; 71045; 96374; 99285; J7030; J0696

== ENCOUNTER 2024-10-15 05:37 | Day surgery (SDC) | payer OTHER ==
[2024-10-10 09:32] LABS: Absolute Eosinophils 0.1 K/uL (0-0.5); Absolute Lymphocytes (CBC) 1.9 K/uL (0.7-4.9); Absolute Monocytes 0.7 K/uL (0.1-1.3); Absolute Neutrophil 5.1 K/uL (1.8-8.0); Basophils % 0.3 % (0-1.3); Eosinophils % 0.7 % (0-4.4); Hematocrit 45.5 % (36.0-45.0); Hemoglobin 16.2 g/dL (12.0-15.0); Lymphocytes % 24.7 % (15.3-44.8); MCH 30.6 pg (27.0-35.0); MCHC 35.5 g/dL (32.0-36.0); MPV 8.5 fL (7.6-11.3); Monocytes % 8.7 % (3.3-12.3); Neutrophils % 65.6 % (41.7-73.7); Nucleated Red Blood Cells % 0.1 % (0-0); Platelets 247 thou/uL (152-406); RBC Red Blood Cell Count 5.29 M/uL (3.86-4.86); Red Cell Distribution Width 13.5 % (12.1-15.2)
--- NOTE | 2024-10-10 09:37 | RAD REPORT ---
EXAM: Chest Pa And Lat (2 Views) HISTORY: 69 years Female pre op for day surgery COMPARISON: 11/06/2023 FINDINGS: LUNGS/PLEURA: The lungs are clear. No pleural effusions or pneumothorax. No pulmonary edema. CARDIAC/MEDIASTINUM: The cardiac silhouette is within normal limits. UPPER ABDOMEN: No significant abnormality. BONES: No acute abnormality. LINES/TUBES/OTHER: N/A IMPRESSION: No evidence of acute cardiopulmonary disease. No significant change from prior.
[2024-10-10 09:40] LABS: PT Prothrombin Time 11.3 SECONDS (10-13.0); PTT, Activated Partial Thromb 34.2 SECONDS (27.2-37.4); Protime INR 0.99
[2024-10-10 09:54] LABS: Anion Gap 9.5 mEq/L (5.0-15.0); Potassium 3.5 mEq/L (3.5-5.1)
--- NOTE | 2024-10-13 12:08 | EKG ---
Test Date: 2024-10-10 Test Time: 09:11:56 Residential Door Installer: NGUYEN MEASUREMENT RESULTS: Intervals: Rate: 77 [place]: 144 QRSD: 80 QT: 384 QTc: 434 [place]: P: 174 [place]: 144 QRS: 31 T: 68 INTERPRETIVE STATEMENTS: Unusual P axis, possible ectopic atrial rhythm Abnormal ECG Compared to ECG 11/06/2023 12:54:23 Sinus rhythm no longer present Electronically Signed On 10-13-24 12:06:03 CDT by Sreedhar Walls
[2024-10-15] MEDS: NA CHLORIDE 0.9% 1,000 ML ONE ×2 (06:15→10:40)
[2024-10-15] MEDS: Oxycodone HCl/Acetaminophen 5/325 MG TAB ONE (06:29)
[2024-10-15] MEDS: ACETAMINOPHEN 500 MG TAB ONE (06:29)
[2024-10-15] MEDS: GABAPENTIN 100 MG CAP ONE (06:29)
[2024-10-15] MEDS: LIDOCAINE 1% MPF 5 ML VIAL ONE (07:02)
[2024-10-15] MEDS: MIDAZOLAM HCL 2 MG/2 ML INJ ONE (07:03)
[2024-10-15] MEDS: EPINEPHRINE 1 MG/ML VIAL ONE (07:03)
[2024-10-15] MEDS: BUPIVACAINE 0.25% PF 30 ML VIAL ONE ×2 (07:03→07:26)
[2024-10-15] MEDS: FENTANYL CITR 100 MCG/2 ML ONE (07:03)
[2024-10-15] MEDS: dexAMETHasone 10 MG/ML VIAL ONE (07:03)
[2024-10-15] MEDS: TRANEXAMIC ACID 1,000 MG/10 ML VIAL IV ONE (07:26)
[2024-10-15] MEDS: LIDOCAINE 2% MPF 5 ML VIAL ONE (07:47)
[2024-10-15] MEDS: MAGNESIUM SULFATE 1 gm IVPB 1 GM/100 ML BAG IV ONE (07:47)
[2024-10-15] MEDS: DEXMEDETOMIDINE HCL 200 MCG/2 ML VIAL ONE (07:47)
[2024-10-15] MEDS: propofoL 200 MG/20 ML VIAL IV ONE (07:47)
[2024-10-15] MEDS ORDERED: KETAMINE HCL IN 0.9 % NACL 50 MG/5 ML SYRINGE IV ONE (08:04)
[2024-10-15] MEDS ORDERED: EPHEDRINE SULF 50 MG/ML VIAL ONE (08:05)
[2024-10-15] MEDS: CEFAZOLIN SODIUM 2 GM/VIAL ONE (08:08)
[2024-10-15] MEDS: VANCOMYCIN 1 GM/VIAL ONE (08:20)
[2024-10-15] MEDS ORDERED: dexAMETHasone 4 MG/ML VIAL ONE (08:29)
[2024-10-15] MEDS ORDERED: FENTANYL CITR 100 MCG/2 ML ONE (08:37)
--- NOTE | 2024-10-15 10:24 | P.BOP ---
Preoperative diagnosis: Right knee osteoarthritis Postoperative diagnosis: Same Primary procedure: Right total knee arthroplasty Softball Coach: NONE,NONE Estimated blood loss: 40 cc Specimen: Right knee bone remnants Findings: See dictation Anesthesia: General Implants: Briana Persona 7 narrow CR femur, D tibia with stem, 32 patella, 10 CR poly Fluids & blood products: Per anesthesia record; tourniquet time 66 minutes at 300 mmHg Transferred to: Recovery Room Condition: Good
[2024-10-15] MEDS ORDERED: DOCUSATE NA 100 MG CAP PO PRN (10:25)
[2024-10-15] MEDS ORDERED: ACETAMINOPHEN 325 MG TABLET PO PRN (10:25)
[2024-10-15] MEDS ORDERED: ONDANSETRON 4 MG/2 ML VIAL IV PRN (10:25)
[2024-10-15] MEDS ORDERED: TRAMADOL HCL 50 MG TAB PO PRN (10:29)
[2024-10-15] MEDS: SEMAGLUTIDE 2 MG/0.75 ML SQ SCH (10:30)
[2024-10-15] MEDS: HOME MED 1 EA UNK (Cholecalciferol (Vitamin D3) [Vitamin D3] 1,000 UNIT Capsule) PO SCH (10:30)
--- NOTE | 2024-10-15 10:36 | P.OP ---
Preoperative diagnosis: Right knee osteoarthritis Postoperative diagnosis: Same Primary procedure: Right total knee arthroplasty Anesthesia: General Estimated blood loss: 40 cc Specimen: Right knee bone remnants Findings: See dictation Operative Technique: Indication For Procedure: Sofia is a 69 year-old female presenting to my clinic with signs, symptoms and x-ray findings consistent with severe right knee osteoarthritis. I discussed with the patient at length risks and benefits associated with operative and nonoperative treatment. She had failed conservative treatment measures and had significant difficulties with ADLs secondary to her pain. We discussed operative treatment and elected to proceed with right total knee arthroplasty. She expressed understanding and elected to proceed with operative treatment. Description Of Procedure: After informed consent was obtained, the patient was identified in the preoperative holding area. The right lower extremity was m arked. The patient was then taken to the PACU where she underwent a right lower extremity adductor canal block performed by Anesthesia. She was then taken to the operating room, transferred to the operating table in supine fashion, and placed under general anesthesia. The right lower extremity was then prepped and draped in usual sterile fashion. A time-out was initiated. The correct patient and procedure were confirmed and identified. The patient did receive her preoperative prophylactic antibiotics. The right lower extremity was then exsanguinated and tourniquet was inflated to 300 mmHg. Approximately 15 cm longitudinal incision was made centered over the anterior aspect of the right knee. Dissection was then taken to the extensor mechanism and a medial parapatellar arthrotomy was performed. The patella was everted and dislocated laterally and the knee was flexed in the fat pad. Medial and lateral meniscus and ACL were all excised exposing the distal femur. Excess hypertrophic synovium was also excised within the suprapatellar pouch. The patient had an MRI of her right knee preoperatively for surgical planning and creation of cutting blocks. The cutting block was then placed over the distal femur and pins were then placed. The distal femoral cutting block was then placed over the pins. An isai wing was then used to ensure proper depth cut and the distal femur was then cut. The chamfer cutting guide was then placed over the distal end of the femur. Anterior, posterior cuts as well as anterior and posterior chamfer cuts were then made again confirming proper depth of the cut using an Isai wing. Excess bone remnants were then sent to pathology for further evaluation. Next, attention was taken to the proximal tibia. A tibial jig and tibial cutting block was then placed on proximal aspect of the right tibia and locked into position. Pins were then placed and alignment guide was then used to confirm proper alignment of the cut and then coronal and sagittal planes. Once this was confirmed, the cutting jig was placed over the pins and the proximal tibia was cut. Sizing trays were then selected and size 10 mm spacer was used and there was good overall balance in flexion and extension. Next, the trial implants were then placed using the size 7 narrow CR femur and a size D tibia and an 10 mm CR poly. There was overall good range of motion and good stability. The trial implants were then removed. The wound was then irrigated thoroughly with normal saline and the knee was then injected with 20 cc of 0.5% Marcaine both in the posterior capsule and medial and lateral gutters as well as quadriceps tendon and periosteum. The tibia was then punched. The femur was drilled. The cement was then prepared on the back table. Cement was then placed first on the tibial surface followed by size D tibia with a stem secondary to osteoporotic bone. Excess cement was removed with [place] elevators. Size 7 narrow CR femur was then placed on the distal femur after cement was placed on the distal femur. Excess cement was then removed and a size 10 mm CR trial poly was then placed. The knee was held in extension as the cement hardened. Undersurface of the patella was prepared debriding osteophytes using rongeurs as well as osteophytes.. Cement was placed on the undersurface of the patella after it was cut and a size 32 patella was placed. Once the cement was hardened, the knee was ranged, there was good overall stability both in flexion, extension and as well as stability with varus and valgus stresses. Trial poly was then removed and a size 10 mm CR poly was then placed and locked into position. The knee was then ranged again. There was good overall range of motion both for flexion and extension with good stability. The wound was then irrigated again thoroughly with normal saline using pulse lavage. Tourniquet was let down. Hemostasis was achieved using Bovie electrocautery. Extensor mechanism was then approximated using a #1 Vicryl both in interrupted and running fashion. The fascia was then approximated using 0 Vicryl. Subcutaneous tissue was approximated with a 2-0 Vicryl. Skin was approximated using laureen. Sterile dressings were applied. The patient was awakened and transferred back in stable condition. Implants: Briana persona 7 CR narrow femur, D tibia with stem, 10 CR poly, 32 patella Fluids & blood products: Per anesthesia record; tourniquet time 66 minutes at 300 mmHg Transferred to: Recovery Room Condition: Good
[2024-10-15] MEDS: HYDROMORPHONE HCL 0.5 MG/0.5 ML INJ ONE (11:00)
--- NOTE | 2024-10-15 11:40 | RAD REPORT ---
EXAMINATION: Knee Right 2 View VIEWS: Two views CLINICAL INDICATION: Female, 69 years old. Post Op COMPARISON: No prior exam. IMPRESSION: Status post right knee arthroplasty. No hardware complications. No acute fracture. Expected postoperative changes are present within the soft tissues.
[2024-10-15 12:54] VITALS: BMI 32.4
[2024-10-15 13:21] VITALS: O2SAT 98
[2024-10-15] MEDS: HYDROCODONE/APAP 7.5/325 MG TAB PO PRN (15:27)
[2024-10-15] MEDS: PANTOPRAZOLE 40MG TABLET PO SCH (15:27)
[2024-10-15] MEDS: CEFAZOLIN SODIUM 2 GM in NA CHLORIDE 0.9% 100 ML IVPB SCH (16:22)
[2024-10-15] MEDS: TIZANIDINE 4 MG TABLET PO SCH (20:26)
[2024-10-15] MEDS: VANCOMYCIN 1.5 GM in NA CHLORIDE 0.9% 500 ML IVPB SCH (20:27)
[2024-10-15] MEDS: MONTELUKAST 10 MG TAB PO SCH (20:27)
[2024-10-15] MEDS ORDERED: HOME MED 1 EA UNK (Tizanidine Hcl [Tizanidine Hcl] 2 MG Tablet) PO SCH (21:00)
[2024-10-15] MEDS ORDERED: HOME MED 1 EA UNK (Omeprazole [Prilosec] 40 MG Capsule.Dr) PO SCH (21:00)
[2024-10-15 21:07] VITALS: TEMP 97.9
[2024-10-16 04:30] LABS: Hematocrit 36.2 % (36.0-45.0); Hemoglobin 12.7 g/dL (12.0-15.0)
[2024-10-16] MEDS: ENOXAPARIN 30 MG/0.3 ML SQ SCH (05:19)
[2024-10-16] MEDS: LEVOTHYROXINE SOD 0.088 MG TAB PO SCH (06:40)
[2024-10-16 08:07] VITALS: BP 109/59
[2024-10-16] MEDS: AMLODIPINE 5 MG TAB PO SCH (08:32)
[2024-10-16] MEDS: ROSUVASTATIN 10 MG TAB PO SCH (08:32)
[2024-10-16] MEDS: DULOXETINE 30 MG CAP PO SCH (08:32)
[2024-10-16] MEDS ORDERED: HOME MED 1 EA UNK (Duloxetine Hcl [Duloxetine Hcl] 60 MG Capsule.Dr) PO SCH (09:00)
[2024-10-16] MEDS ORDERED: ROSUVASTATIN 10 MG TAB PO SCH (09:00)
[2024-10-16] MEDS ORDERED: HOME MED 1 EA UNK (Rosuvastatin Calcium [Rosuvastatin Calcium] 20 MG Tablet) PO SCH (09:00)
[2024-10-17] MEDS ORDERED: DRISDOL (VITAMIN D=ERGOCALCIFEROL) 50000 UNIT CAP PO SCH (09:00)
== END 2024-10-16 10:12 | disposition home health service (06) ==
LOC: OR 05:37 → 4TH 10:25 → OR 10-16 10:12
PROVIDERS: ATTEND Orthopaedic Surgery Sports Medicine
PROC: 0SRC0J9 Replacement of Right Knee Joint with Synthetic Substitute, Cemented, Open Approach (ICD-10-PCS; principal; 2024-10-15 08:00)
DX: M17.11 Unilateral primary osteoarthritis, right knee (principal); M25.561 Pain in right knee
CPT/HCPCS: 93005; 85025; 80048; 36415 ×2; 85610; 82947 ×5; 88305; 88311; 85730; 85018; 85014; 71046; 73560; 97116 ×3; 97139; 97161; 94010; 27447; J3490; C1776 ×4; J3475; J2704; J1100 ×2; J2003 ×2; J1650 ×2; J2250; J3010 ×2; J3370 ×2; J0171; J1171; J7040; J7030 ×2